=== PATIENT | female | born 1945 | race Caucasian/White ===

== ENCOUNTER → 2016-11-16 | Outpatient (CLI) | payer MEDICARE ==
[~2016-11-16] MED LIST: CARD120T4 PO; CHLO7.5 PO; COUM2TAB PO; CYMB60CA PO; HYDR-3113 PO; LEVO.1 PO; LISI-515 PO; METO25 PO; METO25TA3 PO; NEUR600T PO; OMEP20TA PO; PRIL20CA PO; PRIN20TA2 PO; SOMA350T PO
[2016-11-16 10:06] LABS: INTERNATIONAL NORMALIZED RATIO 2.4 RATIO; PROTHROMBIN TIME - PATIENT 27.6 SEC (9.8-11.6)
== END ==
LOC: PLAB 08:44
PROVIDERS: ATTEND Internal Medicine Interventional Cardiology
DX: I48.0 Paroxysmal atrial fibrillation (principal); Z79.01 Long term (current) use of anticoagulants
CPT/HCPCS: 36415; 85610

== ENCOUNTER → 2016-12-15 | Outpatient (CLI) | payer MEDICARE ==
[2016-12-15 09:28] LABS: INTERNATIONAL NORMALIZED RATIO 3.3 RATIO; PROTHROMBIN TIME - PATIENT 38.5 SEC (9.8-11.6)
== END ==
LOC: PLAB 07:55
PROVIDERS: ATTEND Internal Medicine Interventional Cardiology
DX: I48.0 Paroxysmal atrial fibrillation (principal); Z79.01 Long term (current) use of anticoagulants
CPT/HCPCS: 36415; 85610

== ENCOUNTER → 2017-01-18 | Outpatient (CLI) | payer MEDICARE ==
[2017-01-18 09:01] LABS: INTERNATIONAL NORMALIZED RATIO 2.3 RATIO; PROTHROMBIN TIME - PATIENT 26.6 SEC (9.8-11.6)
== END ==
LOC: PLAB 08:09
PROVIDERS: ATTEND Internal Medicine Interventional Cardiology
DX: I48.0 Paroxysmal atrial fibrillation (principal); Z79.01 Long term (current) use of anticoagulants
CPT/HCPCS: 36415; 85610

== ENCOUNTER → 2017-02-17 | Outpatient (CLI) | payer MEDICARE ==
[2017-02-17 15:28] LABS: INTERNATIONAL NORMALIZED RATIO 2.5 RATIO; PROTHROMBIN TIME - PATIENT 28.4 SEC (9.8-11.6)
== END ==
LOC: PLAB 13:19
PROVIDERS: ATTEND Internal Medicine Interventional Cardiology
DX: I48.0 Paroxysmal atrial fibrillation (principal); Z79.01 Long term (current) use of anticoagulants
CPT/HCPCS: 36415; 85610

== ENCOUNTER → 2017-03-16 | Outpatient (CLI) | payer MEDICARE ==
[2017-03-16 09:20] LABS: INTERNATIONAL NORMALIZED RATIO 2.2 RATIO; PROTHROMBIN TIME - PATIENT 25.1 SEC (9.8-11.6)
== END ==
LOC: PLAB 07:54
PROVIDERS: ATTEND Internal Medicine Interventional Cardiology
DX: I48.0 Paroxysmal atrial fibrillation (principal); Z79.01 Long term (current) use of anticoagulants
CPT/HCPCS: 36415; 85610

== ENCOUNTER → 2017-04-12 | Outpatient (CLI) | payer MEDICARE ==
[2017-04-12 10:15] LABS: AUTOMATED NEUTROPHIL # 5.5 TH/MM3 (1.8-7.7); BASOPHIL # 0.1 TH/MM3 (0-0.2); BASOPHIL % 0.8 % (0.0-2.0); EOSINOPHIL # 0.2 TH/MM3 (0-0.4); EOSINOPHIL % 2.2 % (0.0-4.0); HEMATOCRIT 33.2 % (35.0-46.0); HEMO FLAGS DIFF FINAL; LYMPH % 19.4 % (9.0-44.0); LYMPHOCYTE # 1.5 TH/MM3 (1.0-4.8); MEAN CELL VOLUME 84.7 FL (80.0-100.0); MEAN CORPUSCULAR HEMOGLOBIN 27.9 PG (27.0-34.0); MONO % 6.5 % (0.0-8.0); NEUT % 71.1 % (16.0-70.0); PLATELET COUNT 260 TH/MM3 (150-450); RED BLOOD COUNT 3.92 MIL/MM3 (4.00-5.30); RED CELL DISTRIBUTION WIDTH 14.7 % (11.6-17.2); WHITE BLOOD COUNT 7.7 TH/MM3 (4.0-11.0)
[2017-04-12 10:56] LABS: ALKALINE PHOSPHATASE 141 U/L (45-117); ALT (GPT) 32 U/L (10-53); ANION GAP 10 MEQ/L (5-15); AST (GOT) 20 U/L (15-37); BICARBONATE 23.4 MEQ/L (21.0-32.0); BLOOD UREA NITROGEN 13 MG/DL (7-18); CHLORIDE 109 MEQ/L (98-107); FREE T4 1.25 NG/DL (0.76-1.46); GLOMERULAR FILTRATION RATE 51 ML/MIN (>89); GLUCOSE,FASTING 106 MG/DL (74-99); HDL CHOLESTEROL 53.2 MG/DL (40.0-60.0); LDL CHOLESTEROL 115 MG/DL (0-99); POTASSIUM 4.1 MEQ/L (3.5-5.1); SODIUM (NA) 142 MEQ/L (136-145); TOTAL BILIRUBIN ADULT 0.2 MG/DL (0.2-1.0)
== END ==
LOC: PLAB 07:25
PROVIDERS: ATTEND Family Medicine
DX: E03.9 Hypothyroidism, unspecified (principal); I10 Essential (primary) hypertension
CPT/HCPCS: 36415; 80053; 80061; 84439; 84443; 85025

== ENCOUNTER → 2017-04-25 | Outpatient (CLI) | payer MEDICARE ==
--- NOTE | 2017-04-19 11:19 | MH ---
cc: CHONG CHAN DATE OF ADMISSION 04/25/2017 ADMISSION DIAGNOSIS Cloudy posterior capsule left eye. HISTORY OF PRESENT ILLNESS This 71-year-old white female is coming through [facility] for the purpose of a YAG laser posterior capsulotomy of the left eye. She is status post bilateral cataract surgery with intraocular lens implants in 2008 and has done well postoperatively, but now noticed decreasing visual acuity in the left eye interfering with her daily activities and was found to have a cloudy posterior capsule in the left eye greater than the right and therefore has elected to have a YAG laser posterior capsulotomy of the left eye at this time. PAST MEDICAL HISTORY The patient has a history of: 1. Hypertension 2. Migraines 3. Kidney disease 4. Arthritis 5. Breast cancer 6. Atrial fibrillation PAST SURGICAL HISTORY Includes: 1. Hysterectomy 2. Gallbladder surgery 3. Kidney stone removal 4. Tonsillectomy 5. Breast biopsy 6. Radioactive ablation 7. Bilateral carpal tunnel procedures 8. Left breast lumpectomy 9. Cryoablation of the heart 10. Blepharoplasty MEDICATIONS Daily medications include: 1. Lisinopril 2. Norvasc 3. Neurontin 4. Synthroid 5. Prilosec 6. Cymbalta 7. Coumadin 8. Cardizem ALLERGIES SHE IS ALLERGIC TO NSAID'S. SOCIAL HISTORY Noncontributory FAMILY HISTORY Positive for brother and aunt with cataracts and an aunt who lost her eye secondary to a cancer. REVIEW OF SYSTEMS Noncontributory OCULAR EXAM On ocular exam, the patient's best corrected visual acuity is 20/20 -2 in the right eye and 20/30 +2 in the left. Visual turner are full to confrontation testing. Extraocular muscle exam reveals full versions with orthophoria at distance and near. Pupils are 3 mm equal, round, and reactive to light without afferent defect. Anterior segment examination reveals dermatochalasis of the eyelid skin. A posterior chamber intraocular lenses is in place bilaterally with a cloudy posterior capsule greater in the left eye than the right. Intraocular pressure is 15 in the right eye and 16 in the left by applanation tonometry. Dilated fundus exam reveals sharp disks with cup-to-disk ratio of 0.4 bilaterally. The macula is clear bilaterally. Asteroid hyalosis is present in the right vitreous. IMPRESSION 1. Cloudy posterior capsule left eye greater than right. 2. Pseudophakia both eyes 3. Asteroid hyalosis right eye PLAN The plan is YAG laser posterior capsulotomy of the left eye through [facility]. MD JYOTI Burnett/COMPA /10:58 AM /11:13 AM
[~2017-04-25] MED LIST changes: +BALANCED SALT SOLN OPHT IRRIG 15 ML BTL ONE; +FLUOROMETHOLONE 0.25% OPHT SUSP 5 ML BTL ONE; +HYPROMELLOSE 0.3 % OPTH GEL 10 GM (0.34 FL OZ) TUBE ONE; -METO25 PO; +PHENYLEPHRINE HCL 2.5% OPTH SOLN 2 ML BTL ONE; -PRIL20CA PO; -PRIN20TA2 PO; +PROPARACAINE HCL 0.5% OPHT SOLN 15 ML BTL ONE; +TROPICAMIDE 1% OPHT SOLN 15 ML BTL ONE
--- NOTE | 2017-04-25 14:06 | MP ---
cc: CHONG JOHN DATE OF SURGERY: 04/25/2017 PREOPERATIVE DIAGNOSIS Cloudy posterior capsule, left eye. POSTOPERATIVE DIAGNOSIS Cloudy posterior capsule, left eye. OPERATION YAG laser posterior capsulotomy, left eye. SURGEON Chong John MD ANESTHESIA Topical. COMPLICATIONS None. INDICATIONS See history and physical previously dictated. PROCEDURE The patient arrived at [facility]. Blood pressure was 141/51, pulse 79, respirations 20. A drop of Alphagan P and Mydriacyl were instilled in the left eye. The patient was seated at the YAG laser. A drop of Alcaine was instilled in the left eye and a YAG laser posterior capsulotomy lens was placed on the anterior surface of the left cornea. YAG laser posterior capsulotomy was carried out utilizing 33 exposures of 1.6 millijoules. An adequate opening was seen following the procedure. A drop of Alphagan P was instilled topically. The patient was given a prescription for a topical steroid to be used four times per day and has an appointment for follow up on the first postoperative day in my office. The patient left the [facility] in satisfactory condition. Chong John MD RAILWAY EQUIPMENT OPERATOR/TLL /11:28 AM /1:59 PM
== END ==
LOC: PHSDC 10:01
PROVIDERS: ATTEND Ophthalmology
DX: H26.492 Other secondary cataract, left eye (principal); I10 Essential (primary) hypertension; I48.91 Unspecified atrial fibrillation; N28.9 Disorder of kidney and ureter, unspecified; G43.909 Migraine, unspecified, not intractable, without status migrainosus; Z85.3 Personal history of malignant neoplasm of breast; Z79.01 Long term (current) use of anticoagulants

== ENCOUNTER → 2017-04-27 | Outpatient (CLI) | payer MEDICARE ==
[~2017-04-27] MED LIST changes: -BALANCED SALT SOLN OPHT IRRIG 15 ML BTL ONE; -FLUOROMETHOLONE 0.25% OPHT SUSP 5 ML BTL ONE; -HYPROMELLOSE 0.3 % OPTH GEL 10 GM (0.34 FL OZ) TUBE ONE; -PHENYLEPHRINE HCL 2.5% OPTH SOLN 2 ML BTL ONE; -PROPARACAINE HCL 0.5% OPHT SOLN 15 ML BTL ONE; -TROPICAMIDE 1% OPHT SOLN 15 ML BTL ONE
[2017-04-27 15:00] LABS: INTERNATIONAL NORMALIZED RATIO 3.2 RATIO; PROTHROMBIN TIME - PATIENT 37.7 SEC (9.8-11.6)
== END ==
LOC: PLAB 13:51
PROVIDERS: ATTEND Internal Medicine Interventional Cardiology
DX: I48.0 Paroxysmal atrial fibrillation (principal); Z79.01 Long term (current) use of anticoagulants
CPT/HCPCS: 36415; 85610

== ENCOUNTER → 2017-05-11 | Outpatient (CLI) | payer MEDICARE ==
[2017-05-11 08:56] LABS: INTERNATIONAL NORMALIZED RATIO 3.5 RATIO; PROTHROMBIN TIME - PATIENT 40.6 SEC (9.8-11.6)
== END ==
LOC: PLAB 07:12
PROVIDERS: ATTEND Internal Medicine Interventional Cardiology
DX: I48.0 Paroxysmal atrial fibrillation (principal); Z79.01 Long term (current) use of anticoagulants
CPT/HCPCS: 36415; 85610

== ENCOUNTER → 2017-05-31 | Outpatient (CLI) | payer MEDICARE ==
[2017-05-31 10:52] LABS: INTERNATIONAL NORMALIZED RATIO 2.1 RATIO; PROTHROMBIN TIME - PATIENT 23.4 SEC (9.8-11.6)
[2017-05-31 13:11] LABS: RHEUMATOID FACTOR TRIGGER LESS THAN 10.0 IU/ML (0.0-14.9)
== END ==
LOC: PLAB 09:46
PROVIDERS: ATTEND Internal Medicine Rheumatology
DX: M06.4 Inflammatory polyarthropathy (principal); I48.0 Paroxysmal atrial fibrillation; Z79.01 Long term (current) use of anticoagulants
CPT/HCPCS: 36415; 85610; 85652; 86140; 86200; 86430

== ENCOUNTER → 2017-06-14 | Outpatient (CLI) | payer MEDICARE | LOC: PLAB 11:16 | PROVIDERS: ATTEND Internal Medicine Interventional Cardiology | DX: I48.0 Paroxysmal atrial fibrillation (principal); Z79.01 Long term (current) use of anticoagulants | CPT/HCPCS: 36415; 85610 ==

== ENCOUNTER → 2017-06-28 | Outpatient (CLI) | payer MEDICARE ==
[2017-06-28 10:12] LABS: BLOOD GAS BASE EXCESS -8.1 mmol/L (-2-2); BLOOD GAS CARBOXYHEMOGLOBIN 1.1 % (0-4); BLOOD GAS HCO3 16 mmol/L (22-26); BLOOD GAS METHEMOGLOBIN 1.2 % (0-2); BLOOD GAS O2 HGB SATURATION 96 % (90-100); BLOOD GAS OXYGEN CONTENT 14.8 Vol % (12.0-20.0); BLOOD GAS PCO2 30 mmHg (38-42); BLOOD GAS PO2 114 mmHg (61-120); BLOOD GAS TOTAL HGB 10.9 G/DL (12.0-16.0); TEMP CORR TO 98.6
[2017-06-28 10:14] LABS: CRITICAL VALUE YES; DRAW SITE RT RADIAL; FIO2 21 %; NUMBER OF ARTERIAL PUNCTURES 1; STAT NO; ULNAR PULSE PRESENT
[2017-06-28 13:09] LABS: HEMATOCRIT 34.6 % (35.0-46.0); MEAN CELL VOLUME 86.4 FL (80.0-100.0); MEAN CORPUSCULAR HEMOGLOBIN 28.1 PG (27.0-34.0); MEAN CORPUSCULAR HGB CONC 32.5 % (32.0-36.0); PLATELET COUNT 261 TH/MM3 (150-450); RED CELL DISTRIBUTION WIDTH 15.6 % (11.6-17.2); REVIEW FLAG FINAL; WHITE BLOOD COUNT 10.9 TH/MM3 (4.0-11.0)
--- NOTE | 2017-06-29 10:10 | RSPPFT ---
DATE OF PROCEDURE: 06/28/17 COMMENTS: VOLUMES DYNAMIC: FVC and FEV1 normal. STATIC: TLC, FRC and RV normal. FLOWS: FEV1% and FEF 25-75 normal. DIFFUSION: Normal. FLOW VOLUME LOOP: Normal configuration. IMPRESSION: Normal lung volumes and flows with no response to bronchodilator. There is a mild reduction in diffusion for which clinical correlation is required.
== END ==
LOC: HRSP 08:52
PROVIDERS: ATTEND Internal Medicine Interventional Cardiology
DX: R06.02 Shortness of breath (principal)
CPT/HCPCS: 36415; 36600; 82805; 83880; 85027; 94060; 94726; 94729

== ENCOUNTER → 2017-06-30 | Outpatient (CLI) | payer MEDICARE | LOC: PLAB 06-28 10:23 | PROVIDERS: ATTEND Internal Medicine Interventional Cardiology | DX: D64.9 Anemia, unspecified (principal) | CPT/HCPCS: 82272 ==

== ENCOUNTER → 2017-08-15 | Outpatient (CLI) | payer MEDICARE ==
[2017-08-15 09:53] LABS: INTERNATIONAL NORMALIZED RATIO 1.9 RATIO; PROTHROMBIN TIME - PATIENT 21.6 SEC (9.8-11.6)
== END ==
LOC: PLAB 06:57
PROVIDERS: ATTEND Internal Medicine Interventional Cardiology
DX: I48.0 Paroxysmal atrial fibrillation (principal); Z79.01 Long term (current) use of anticoagulants
CPT/HCPCS: 36415; 85610

== ENCOUNTER → 2017-09-01 | Outpatient (CLI) | payer MEDICARE ==
[2017-09-01 12:35] LABS: INTERNATIONAL NORMALIZED RATIO 2.4 RATIO; PROTHROMBIN TIME - PATIENT 28.1 SEC (9.8-11.6)
== END ==
LOC: PLAB 09:56
PROVIDERS: ATTEND Internal Medicine Interventional Cardiology
DX: I48.0 Paroxysmal atrial fibrillation (principal); Z79.01 Long term (current) use of anticoagulants
CPT/HCPCS: 36415; 85610

== ENCOUNTER → 2017-09-26 | Outpatient (CLI) | payer MEDICARE ==
[~2017-09-26] MED LIST changes: -OMEP20TA PO; +OMEP20TA93 PO
[2017-09-26 09:35] LABS: HEMATOCRIT 36.2 % (35.0-46.0); MEAN CELL VOLUME 88.8 FL (80.0-100.0); MEAN CORPUSCULAR HEMOGLOBIN 28.5 PG (27.0-34.0); MEAN CORPUSCULAR HGB CONC 32.1 % (32.0-36.0); PLATELET COUNT 238 TH/MM3 (150-450); RED BLOOD COUNT 4.08 MIL/MM3 (4.00-5.30); RED CELL DISTRIBUTION WIDTH 16.4 % (11.6-17.2); REVIEW FLAG FINAL; WHITE BLOOD COUNT 8.5 TH/MM3 (4.0-11.0)
== END ==
LOC: PLAB 07:32
DX: I48.0 Paroxysmal atrial fibrillation (principal); R00.0 Tachycardia, unspecified; R00.2 Palpitations; R94.31 Abnormal electrocardiogram [ECG] [EKG]; Z86.39 Personal history of other endocrine, nutritional and metabolic disease; Z79.01 Long term (current) use of anticoagulants
CPT/HCPCS: 36415; 84443; 85027

== ENCOUNTER → 2017-10-03 | Outpatient (CLI) | payer MEDICARE ==
[~2017-10-03] MED LIST changes: +BENZ1CAP51 PO; +PRED20 PO; +VENTAER INH; +VOLT1GEL16; +ZITHTAB PO
[2017-10-03 11:26] LABS: INTERNATIONAL NORMALIZED RATIO 2.2 RATIO; PROTHROMBIN TIME - PATIENT 25.4 SEC (9.8-11.6)
== END ==
LOC: PLAB 10:38
PROVIDERS: ATTEND Internal Medicine Interventional Cardiology
DX: I48.0 Paroxysmal atrial fibrillation (principal); Z79.01 Long term (current) use of anticoagulants
CPT/HCPCS: 36415; 85610

== ENCOUNTER 2017-10-10 10:32 | Emergency (ER) | payer MEDICARE ==
[~2017-10-10] VITALS: Ht 170.2 cm; Wt 97.0 kg
[~2017-10-10 10:32] MED LIST changes: -BENZ1CAP51 PO; -PRED20 PO; -VENTAER INH; -VOLT1GEL16; -ZITHTAB PO
[2017-10-10 10:37] VITALS: BP 149/66; PULSE 96; RESP 20; TEMP 98.2; O2SAT 98
[2017-10-10] MEDS ORDERED: VOLT1GEL16 TOPICAL (11:02)
[2017-10-10] MEDS ORDERED: DEXAMETHASONE SOD PHOS 4 MG/ML VIAL IM ONE (11:30)
--- NOTE | 2017-10-10 11:33 | PD ---
HPI Chief Complaint: Cold / Flu Symptoms Time Seen by Provider: 11:24 Travel History International Travel<30 days: No Contact w/Intl Traveler<30days: No Traveled to known affect area: No History of Present Illness HPI 72-year-old female presents to the emergency department for evaluation of cold symptoms that started on Tuesday, 3 days ago. Patient reports cough, congestion , wheezing. No fevers or chills. No chest pain. No abdominal pain. No nausea , vomiting, diarrhea. Patient has history of A. fib, hypertension, hyperlipidemia, arthritis. She also has history of breast cancer with last chemotherapy treatment 2 years ago. She is currently in remission. She denies any history of diabetes. She states she is taking Tessalon Perles at home without improvement of her cough. She states she has a procedure in [place] next week and would like to feel better to have her procedure done. She denies any history of pneumonia. She is a former smoker. She denies any history of asthma, COPD. Severity is moderate. No exacerbating or alleviating factors. PFSH Past Medical History Hx Anticoagulant Therapy: Yes (COUMADIN) Arthritis: Yes Asthma: No Blood Disorders: No Anxiety: No Depression: No Heart Rhythm Problems: Yes (HEART ABLATION) Cancer: Yes (BREAST, LUMPECTOMY) Cardiovascular Problems: Yes (a-fib) High Cholesterol: No Chemotherapy: Yes Chest Pain: No Congestive Heart Failure: No COPD: No Diabetes: No Diminished Hearing: No Endocrine: Yes GERD: Yes Glaucoma: No Genitourinary: No Hepatitis: No Hiatal Hernia: No Hypertension: Yes Immune Disorder: No Implanted Vascular Access Dvce: Yes Musculoskeletal: Yes Neurologic: No Psychiatric: No Reproductive: No Respiratory: No Migraines: Yes Radiation Therapy: No Sleep Apnea: Yes (2016) Thyroid Disease: Yes (HYPOTHYROID) Tetanus Vaccination: Unknown Influenza Vaccination: Yes Menopausal: Yes : 2 Para: 2 Past Surgical History Abdominal Surgery: Yes (MIGUELANGEL) Body Medical Devices: Left chest port. Cardiac Surgery: Yes (ABLATION HEART) Cholecystectomy: Yes Eye Surgery: Yes (CATARACT EXT BILATERAL) Gynecologic Surgery: Yes (HYSTERECTOMY) Hysterectomy: Yes (TOTAL) Pacemaker: No Other Surgery: Yes (LITHOTRIPSY, LEFT CHEST PORT, LEFT BREAST LUMPECTOMY/BIOPSY ) Social History Alcohol Use: Yes (SOCIAL) Tobacco Use: No (quit 1998) Substance Use: No Allergies-Medications (Allergen,Severity, Reaction): Coded Allergies: diclofenac (Unverified Allergy, Severe, 10/10/17) "EFFECTS KIDNEY FUNCTION" etodolac (Unverified Allergy, Severe, 10/10/17) "EFFECTS KIDNEY FUNCTION" flurbiprofen (Unverified Allergy, Severe, 10/10/17) "EFFECTS KIDNEY FUNCTION" ibuprofen (Unverified Allergy, Severe, 10/10/17) "EFFECTS KIDNEY FUNCTION" indomethacin (Unverified Allergy, Severe, 10/10/17) "EFFECTS KIDNEY FUNCTION" ketoprofen (Unverified Allergy, Severe, 10/10/17) "EFFECTS KIDNEY FUNCTION" ketorolac (Unverified Allergy, Severe, 10/10/17) "EFFECTS KIDNEY FUNCTION" naproxen (Unverified Allergy, Severe, 10/10/17) "EFFECTS KIDNEY FUNCTION" oxaprozin (Unverified Allergy, Severe, 10/10/17) "EFFECTS KIDNEY FUNCTION" Reported Meds & Prescriptions Reported Meds & Active Scripts Active Reported Voltaren (Diclofenac Sodium) 1 % Gel..gram. Cymbalta DR (Duloxetine HCl) 60 Mg Capdr 60 Mg PO DAILY Cardizem (Diltiazem HCl) 120 Mg Tab 180 Mg PO DAILY Tranxene T (Clorazepate Dipotassium) 7.5 Mg Tab 3.75 Mg PO BID PRN Vicodin Es (Hydrocodone-Acetaminophen) 7.5-300 Tab 1 Tab PO Q4H PRN Neurontin (Gabapentin) 600 Mg Tab 600 Mg PO DAILY Soma (Carisoprodol) 350 Mg Tab 350 Mg PO Q6H PRN Metoprolol Tartrate 25 Mg Tab 25 Mg PO DAILY PRN Lisinopril 20 Mg Tab 20 Mg PO DAILY Omeprazole 20 Mg Tab 20 Mg PO DAILY Synthroid (Levothyroxine Sodium) 100 Mcg Tab 100 Mcg PO DAILY Coumadin (Warfarin) 2 Mg Tab 2 Mg PO DAILY Review of Systems Except as stated in HPI: all other systems reviewed are Neg Physical Exam Narrative GENERAL: Well-nourished, well-developed female patient, afebrile. SKIN: Focused skin assessment warm/dry. HEAD: Normocephalic. Atraumatic. ENT: Mucosa pink and moist. No erythema or exudates. No uvular edema. No uvular , palatal, or tonsillar deviation. Airway patent. Nasal turbinates appear normal without nasal blood, purulent drainage or septal hematoma. Bilateral tympanic membranes are clear without erythema or perforation. EYES: No scleral icterus. No injection or drainage. NECK: Supple, trachea midline. No JVD or lymphadenopathy. CARDIOVASCULAR: Regular rate and rhythm without murmurs, gallops, or rubs. RESPIRATORY: Breath sounds equal bilaterally. No accessory muscle use. Lungs sounds with expiratory wheezes noted throughout. GASTROINTESTINAL: Abdomen soft, non-tender, nondistended. MUSCULOSKELETAL: No cyanosis, or edema. BACK: Nontender without obvious deformity. No CVA tenderness. Data Data Last Documented VS Vital Signs Date Time Temp Pulse Resp B/P (MAP) Pulse Ox O2 Delivery O2 Flow Rate FiO2 10/10/17 13:28 95 17 149/60 (89) 98 Room Air 10/10/17 10:37 98.2 Orders Orders Chest, Single Ap (10/10/17 11:29) Albuterol-Ipratropium Neb (Duoneb Neb) (10/10/17 11:30) Dexamethasone Inj (Decadron Inj) (10/10/17 11:30) Complete Blood Count With Diff (10/10/17 13:09) Basic Metabolic Panel (Bmp) (10/10/17 13:09) B-Type Natriuretic Peptide (10/10/17 13:09) Act Partial Throm Time (Ptt) (10/10/17 13:09) Prothrombin Time / Inr (Pt) (10/10/17 13:09) Iv Access Insert/Monitor (10/10/17 13:09) Ecg Monitoring (10/10/17 13:09) Oximetry (10/10/17 13:09) Oxygen Administration (10/10/17 13:09) Sodium Chloride 0.9% Flush (Ns Flush) (10/10/17 13:15) Labs Laboratory Tests Test 10/10/17 13:25 White Blood Count 11.1 TH/MM3 Red Blood Count 3.94 MIL/MM3 Hemoglobin 11.1 GM/DL Hematocrit 34.5 % Mean Corpuscular Volume 87.6 FL Mean Corpuscular Hemoglobin 28.2 PG Mean Corpuscular Hemoglobin Concent 32.2 % Red Cell Distribution Width 18.0 % Platelet Count 201 TH/MM3 Mean Platelet Volume 8.2 FL Neutrophils (%) (Auto) 90.9 % Lymphocytes (%) (Auto) 6.2 % Monocytes (%) (Auto) 2.4 % Eosinophils (%) (Auto) 0.3 % Basophils (%) (Auto) 0.2 % Neutrophils # (Auto) 10.1 TH/MM3 Lymphocytes # (Auto) 0.7 TH/MM3 Monocytes # (Auto) 0.3 TH/MM3 Eosinophils # (Auto) 0.0 TH/MM3 Basophils # (Auto) 0.0 TH/MM3 CBC Comment DIFF FINAL Differential Comment Prothrombin Time 25.7 SEC Prothromb Time International Ratio 2.2 RATIO Activated Partial Thromboplast Time 36.6 SEC Blood Urea Nitrogen 20 MG/DL Creatinine 1.30 MG/DL Random Glucose 137 MG/DL Calcium Level 8.9 MG/DL Sodium Level 140 MEQ/L Potassium Level 4.6 MEQ/L Chloride Level 109 MEQ/L Carbon Dioxide Level 21.3 MEQ/L Anion Gap 10 MEQ/L Estimat Glomerular Filtration Rate 40 ML/MIN B-Type Natriuretic Peptide 77 PG/ML MDM Medical Decision Making Medical Screen Exam Complete: Yes Emergency Medical Condition: Yes Medical Record Reviewed: Yes Interpretation(s) chest x-ray -CONCLUSION: Mild prominence cardiac silhouette without failure. Differential Diagnosis Pneumonia versus bronchitis versus URI Narrative Course 72-year-old female presents to the emergency department for evaluation of cold symptoms with cough, congestion, wheezing for 3 days. Patient appears well on exam. Expiratory wheezes are noted. Patient is given DuoNeb 3, dexamethasone 8 mg IM. Chest x-ray is ordered and pending. CBC, BMP, BNP, PTT, PT/INR are pending. Chest x-ray shows mild prominence cardiac silhouette without failure. No evidence of pneumonia. CBC shows slight leukocytosis of 11.1. BMP shows BUN 20 , creatinine 1.30 which is patient's baseline. Glucose is 137. BNP is 77. PTT is 25.7, INR 2.2, PTT 36.6. Patient will be discharged with a prescription for albuterol inhaler, azithromycin, prednisone, benzonatate capsules. She is encouraged to follow-up with her primary care physician. She is return here for any acute worsening of symptoms. She verbalizes agreement and understanding. The patient was discharged in stable condition with instructions, including return instructions and follow up instructions. Diagnosis Primary Impression: Upper respiratory infection Qualified Codes: J06.9 - Acute upper respiratory infection, unspecified Referrals: Primary Care Physician 2 days Patient Instructions: General Instructions, Upper Respiratory Infection (ED) Additional Instructions: Take antibiotic as directed until gone. Use albuterol inhaler as directed as needed for shortness of breath/wheezing. Take prednisone as directed. Start this tomorrow. Take benzonatate capsules as directed as needed for cough. Follow-up with your primary care physician. Return to the emergency department for any acute worsening of symptoms. Med/Other Pt SpecificInfo: Prescription(s) given Scripts Azithromycin (Zithromax Z-Kane) 250 Mg Dspk 250 MG PO DIRECTED for Infection, #1 DSPK 0 Refills 500 MG (2 tabs) day 1, then 1 tab days 2-5. Prov: Tona Vivas 10/10/17 Benzonatate (Benzonatate) 200 Mg Cap 200 MG PO TID Y for COUGH, #21 CAP 0 Refills Prov: Tona Vivas 10/10/17 Prednisone (Prednisone) 20 Mg Tab 40 MG PO DAILY, #10 TAB 0 Refills Take 40 mg (2 tablets) daily for 5 days Prov: Tona Vivas 10/10/17 Albuterol 18 GM Inh (Ventolin Hfa 18 GM Inh) 90 Mcg/Act Aer 1 PUFF INH Q4H Y for SHORTNESS OF BREATH, #1 INHALER 0 Refills Prov: Tona Vivas 10/10/17 Disposition: 01 DISCHARGE HOME Condition: Stable Tona Vivas Oct 10, 2017 11:33
[2017-10-10] MEDS: RESP: ALBUTEROL 2.5 MG/IPRATROPIUM 0.5 MG NEB (SCH) INH (11:38)
--- NOTE | 2017-10-10 13:03 | RADRPT ---
EXAM DATE/TIME: 10/10/2017 12:17 [place] COMPARISON: CHEST SINGLE AP, August 11, 2016, 0:11. INDICATIONS : Cough for 4 days. MEDICAL HISTORY : Hypertension. Breast cancer. Afib. SURGICAL HISTORY : Cholecystectomy. Ablation. Left breast lumpectomy. ENCOUNTER: Initial ACUITY: 4 - 6 days PAIN SCORE: 0/10 LOCATION: Bilateral chest FINDINGS: A single view of the chest demonstrates the lungs to be symmetrically aerated without evidence of mas s, infiltrate or effusion. Mild prominence the cardiac silhouette. Osseous structures are intact. CONCLUSION: Mild prominence cardiac silhouette without failure. Andre Zelaya MD FACR on October 10, 2017 at 13:00 Board Certified Radiologist. This report was verified electronically.
[2017-10-10] MEDS ORDERED: SODIUM CHLORIDE 0.9% FLUSH 10 ML FLUSH IVF PRN (13:15)
[2017-10-10 13:28] VITALS: BP 149/60; PULSE 95; RESP 17; O2SAT 98
[2017-10-10 13:52] LABS: AUTOMATED NEUTROPHIL # 10.1 TH/MM3 (1.8-7.7); BASOPHIL % 0.2 % (0.0-2.0); EOSINOPHIL % 0.3 % (0.0-4.0); HEMATOCRIT 34.5 % (35.0-46.0); HEMO FLAGS DIFF FINAL; LYMPH % 6.2 % (9.0-44.0); LYMPHOCYTE # 0.7 TH/MM3 (1.0-4.8); MEAN CELL VOLUME 87.6 FL (80.0-100.0); MEAN CORPUSCULAR HEMOGLOBIN 28.2 PG (27.0-34.0); MEAN CORPUSCULAR HGB CONC 32.2 % (32.0-36.0); MONO % 2.4 % (0.0-8.0); NEUT % 90.9 % (16.0-70.0); PLATELET COUNT 201 TH/MM3 (150-450); RED BLOOD COUNT 3.94 MIL/MM3 (4.00-5.30); WHITE BLOOD COUNT 11.1 TH/MM3 (4.0-11.0)
[2017-10-10 14:04] LABS: BICARBONATE 21.3 MEQ/L (21.0-32.0)
[2017-10-10 14:05] LABS: POTASSIUM 4.6 MEQ/L (3.5-5.1)
[2017-10-10 14:06] LABS: APTT (PATIENT) 36.6 SEC (24.3-30.1); INTERNATIONAL NORMALIZED RATIO 2.2 RATIO; PROTHROMBIN TIME - PATIENT 25.7 SEC (9.8-11.6)
[2017-10-10] MEDS ORDERED: VENTAER INH (14:27)
[2017-10-10] MEDS ORDERED: ZITHTAB PO (14:27)
[2017-10-10] MEDS ORDERED: BENZ1CAP51 PO (14:27)
[2017-10-10] MEDS ORDERED: PRED20 PO (14:27)
[2017-10-11] MEDS ORDERED: DILT180C7 PO (13:49)
== END 2017-10-10 14:43 | disposition home or self-care (01) ==
LOC: PHEFT 10:32
DX: J06.9 Acute upper respiratory infection, unspecified (principal); M19.90 Unspecified osteoarthritis, unspecified site; E78.5 Hyperlipidemia, unspecified; I10 Essential (primary) hypertension; I48.91 Unspecified atrial fibrillation; Z79.01 Long term (current) use of anticoagulants; R06.2 Wheezing
CPT/HCPCS: 71010; 80048; 83880; 85025; 85610; 85730; 94640; 94664; 96372; 99284; J1100

== ENCOUNTER 2017-10-11 13:17 | Inpatient (IN) | payer MEDICARE ==
[2017-10-11] VITALS (10 sets, daily range): BP systolic 118–151; BP diastolic 59–77; PULSE 81–91; RESP 18–22; TEMP 97.9–98.5; O2SAT 93–98
[~2017-10-11] VITALS: Ht 170.2 cm; Wt 102.2 kg
[~2017-10-11 13:17] MED LIST changes: +BENZ1CAP51 PO; +PRED20 PO; +VENTAER INH; +VOLT1GEL16 TOPICAL; +ZITHTAB PO
--- NOTE | 2017-10-11 13:41 | PD ---
HPI Chief Complaint: Respiratory Symptoms Time Seen by Provider: 13:32 Travel History International Travel<30 days: No Contact w/Intl Traveler<30days: No Traveled to known affect area: No History of Present Illness HPI 72 YO F with PMH of A fib, WPW, s/p ablation, HTN, HLD, breast CA in remission 2 years presents to the ED for evaluation of worsening shortness of breath. She states that she began to experience cold symptoms about 4 days ago with cough, congestion and wheeze. She denies fever, chills, chest pain, nausea, vomiting, diarrhea, abdominal pain. The patient was evaluated at [facility] yesterday , diagnosed with URI and provided prescription for Azithromycin, steroids, albuterol inhaler and benzonatate. She endorses compliance with her medications but states that she still feeling unwell. PFSH Past Medical History Hx Anticoagulant Therapy: Yes (COUMADIN) Arthritis: Yes Asthma: No Blood Disorders: No Anxiety: No Depression: No Heart Rhythm Problems: Yes (HEART ABLATION) Cancer: Yes (BREAST, LUMPECTOMY) Cardiovascular Problems: Yes (AFIB WPW) High Cholesterol: No Chemotherapy: Yes Chest Pain: No Congestive Heart Failure: No COPD: No Diabetes: No Diminished Hearing: No Endocrine: Yes GERD: Yes Glaucoma: No Genitourinary: No Hepatitis: No Hiatal Hernia: No Hypertension: Yes Immune Disorder: No Implanted Vascular Access Dvce: Yes Musculoskeletal: Yes Neurologic: No Psychiatric: No Reproductive: No Respiratory: No Migraines: Yes Radiation Therapy: No Sleep Apnea: Yes (2015) Thyroid Disease: Yes (HYPOTHYROID) Menopausal: Yes : 2 Para: 2 Past Surgical History Abdominal Surgery: Yes (MIGUELANGEL) Body Medical Devices: Left chest port. Cardiac Surgery: Yes (ABLATION HEART) Cholecystectomy: Yes Eye Surgery: Yes (CATARACT EXT BILATERAL) Gynecologic Surgery: Yes (HYSTERECTOMY) Hysterectomy: Yes (TOTAL) Pacemaker: No Other Surgery: Yes (LITHOTRIPSY, LEFT CHEST PORT, LEFT BREAST LUMPECTOMY/BIOPSY ) Social History Alcohol Use: Yes (SOCIAL) Tobacco Use: No (quit 1998) Substance Use: No Allergies-Medications (Allergen,Severity, Reaction): Coded Allergies: diclofenac (Unverified Allergy, Severe, 10/11/17) "EFFECTS KIDNEY FUNCTION" etodolac (Unverified Allergy, Severe, 10/11/17) "EFFECTS KIDNEY FUNCTION" flurbiprofen (Unverified Allergy, Severe, 10/11/17) "EFFECTS KIDNEY FUNCTION" ibuprofen (Unverified Allergy, Severe, 10/11/17) "EFFECTS KIDNEY FUNCTION" indomethacin (Unverified Allergy, Severe, 10/11/17) "EFFECTS KIDNEY FUNCTION" ketoprofen (Unverified Allergy, Severe, 10/11/17) "EFFECTS KIDNEY FUNCTION" ketorolac (Unverified Allergy, Severe, 10/11/17) "EFFECTS KIDNEY FUNCTION" naproxen (Unverified Allergy, Severe, 10/11/17) "EFFECTS KIDNEY FUNCTION" oxaprozin (Unverified Allergy, Severe, 10/11/17) "EFFECTS KIDNEY FUNCTION" Reported Meds & Prescriptions Reported Meds & Active Scripts Active Zithromax Z-Kane (Azithromycin) 250 Mg Dspk 250 Mg PO DIRECTED 500 MG (2 tabs) day 1, then 1 tab days 2-5. Benzonatate 200 Mg Cap 200 Mg PO TID PRN Prednisone 20 Mg Tab 40 Mg PO DAILY Take 40 mg (2 tablets) daily for 5 days Ventolin Hfa 18 GM Inh (Albuterol Sulfate) 90 Mcg/Act Aer 1 Puff INH Q4H PRN Reported Diltiazem ER 24 HR (Diltiazem HCl) 180 Mg Caper 180 Mg PO DAILY Voltaren (Diclofenac Sodium) 1 % Gel..gram. 1 Applic TOPICAL PRN Cymbalta DR (Duloxetine HCl) 60 Mg Capdr 60 Mg PO DAILY Tranxene T (Clorazepate Dipotassium) 7.5 Mg Tab 3.75 Mg PO BID PRN Vicodin Es (Hydrocodone-Acetaminophen) 7.5-300 Tab 1 Tab PO Q4H PRN Neurontin (Gabapentin) 600 Mg Tab 600 Mg PO DAILY Soma (Carisoprodol) 350 Mg Tab 350 Mg PO Q6H PRN Metoprolol Tartrate 25 Mg Tab 25 Mg PO DAILY PRN Lisinopril 20 Mg Tab 20 Mg PO DAILY Omeprazole 20 Mg Tab 20 Mg PO DAILY Synthroid (Levothyroxine Sodium) 100 Mcg Tab 100 Mcg PO DAILY Coumadin (Warfarin) 2 Mg Tab 2 Mg PO DAILY Review of Systems Except as stated in HPI: all other systems reviewed are Neg Physical Exam Narrative GENERAL: Well-nourished, well-developed pleasant white female in no acute distress. SKIN: Focused skin assessment warm/dry. HEAD: Normocephalic. EYES: No scleral icterus. No injection or drainage. NECK: Supple, trachea midline. No JVD or lymphadenopathy. CARDIOVASCULAR: Regular rate and rhythm without murmurs, gallops, or rubs. RESPIRATORY: Breath sounds equal bilaterally. Mild end expiratory wheezing in the upper lobes bilaterally. No accessory muscle use. GASTROINTESTINAL: Abdomen soft, non-tender, nondistended. MUSCULOSKELETAL: No cyanosis, or edema. BACK: Nontender without obvious deformity. No CVA tenderness. Data Data Last Documented VS Vital Signs Date Time Temp Pulse Resp B/P (MAP) Pulse Ox O2 Delivery O2 Flow Rate FiO2 10/11/17 15:15 82 19 146/77 (100) 98 Nasal Cannula 2.00 10/11/17 13:21 98.5 Orders Orders Albuterol-Ipratropium Neb (Duoneb Neb) (10/11/17 13:43) Albuterol-Ipratropium Neb (Duoneb Neb) (10/11/17 13:44) Ct Pulmonary Angiogram (10/11/17 14:15) Iv Access Insert/Monitor (10/11/17 14:15) Iodixanol 320 Inj (Rad Ct) (Visipaque 32 (10/11/17 15:11) Blood Afb Culture (Anahy) (10/11/17 16:04) Blood Culture (10/11/17 16:04) Legionella Urinary Antigen (10/11/17 16:04) Azithromycin Inj (Zithromax Inj) (10/11/17 16:15) Cefepime Inj (Maxipime Inj) (10/11/17 16:15) Sputum Afb Culture And Stain (10/11/17 16:04) Sputum Culture And Gram Stain (10/11/17 16:04) Consult Infectious Disease (10/11/17 ) Admit Order (Ed Use Only) (10/11/17 16:18) MDM Medical Decision Making Medical Screen Exam Complete: Yes Emergency Medical Condition: Yes Differential Diagnosis Bronchitis versus pneumonia versus PE versus other Narrative Course 72 YO F with PMH of A fib, WPW, s/p ablation, HTN, HLD, breast CA in remission 2 years presents to the ED for evaluation of worsening shortness of breath. She states that she began to experience cold symptoms about 4 days ago with cough, congestion and wheeze. She denies fever, chills, chest pain, nausea, vomiting, diarrhea, abdominal pain. The patient was evaluated at [facility] yesterday , diagnosed with URI and provided prescription for Azithromycin, steroids, albuterol inhaler and benzonatate. Vitals reviewed. O2 saturations 92% on room air, improved to 95-97% on 2 L by nasal cannula. The patient was walked around the emergency room and O2 sats dipped into the high 80s afterwards. CTA1. No pulmonary embolus. 2. However, there is a reticulonodular pattern in both lower lobes, left greater than right with areas characteristic of a "tree in bud" pattern suggesting atypical infection such as ANAHY. 3. Nodular like area is predominantly an interstitial process in a deshaun- fissural distribution posteriorly in the right upper lobe and probably postinflammatory. I would recommend a followup noncontrasted CT scan of the chest in 3 months to ensure stability/resolution. I discussed the results of the CTA with the patient and her . The reports to me that he was just recently diagnosed with leprosy and is being treated for Mycobacterium. I spoke with Dr. Merida, infectious disease, who recommends azithromycin and cefepime. Blood cultures, urine Legionella antigen, sputum cultures Gram stain and AFB. Antibiotics were initiated. I spoke with Dr. Rossi who agrees to accept the patient to the medicine service. Please see medicine notes for disposition. Dian Maradiaga Oct 11, 2017 13:41
[2017-10-11] MEDS ORDERED: RESP: ALBUTEROL 2.5 MG/IPRATROPIUM 0.5 MG NEB (PRN) ONE ×2 (13:43→13:44)
[2017-10-11] MEDS ORDERED: DILT180C7 PO (13:49)
[2017-10-11] MEDS ORDERED: IODIXANOL 320 MG/ML 10 ML VIAL (for Rad CT) IVCONTRAST ONE (15:11)
--- NOTE | 2017-10-11 15:32 | RADRPT ---
EXAM DATE/TIME: 10/11/2017 15:00 [facility] COMPARISON: No previous studies available for comparison. INDICATIONS : Cough, dyspnea for 5 days IV CONTRAST: 50 cc Visipaque (iodixanol) IV RADIATION DOSE: 16.41 CTDIvol (mGy) MEDICAL HISTORY : Cardiovascular disease. Hypertension. Carcinoma, breast. SURGICAL HISTORY : Cholecystectomy. Hysterectomy. ENCOUNTER: Initial ACUITY: 4 - 6 days PAIN SCALE: 6/10 LOCATION: chest TECHNIQUE: Volumetric scanning of the chest was performed using a pulmonary embolism protocol MIP images were re constructed. Using automated exposure control and adjustment of the mA and/or kV according to patien t size, radiation dose was kept as low as reasonably achievable to obtain optimal diagnostic quality images. DICOM format image data is available electronically for review and comparison. Follow-up recommendations for detected pulmonary nodules are based at a minimum on nodule size and pa tient risk factors according to Fleischner Society Guidelines. FINDINGS: PULMONARY ARTERIES: No filling defects are seen in the pulmonary arteries through the segmental level. LUNGS: Reticular nodular pattern is present in both lung bases, left greater than right. Some of the nodules coalesce into a focal airspace process medially in the inferior left perihilar distribution. A 1.1 c m predominantly interstitial process has a rounded configuration in a deshaun-fissural distribution of t he right upper lobe. PLEURAE: There is no pleural thickening or pleural effusion. MEDIASTINUM: There is good visualization of the great vessels of the middle mediastinum. No evidence of mediastin al or hilar adenopathy/mass. MUSCULOSKELETAL: Within normal limits for patient age. MISCELLANEOUS: The visualized upper abdominal organs demonstrate no acute abnormality. Patient is status post cholec ystectomy. CONCLUSION: 1. No pulmonary embolus. 2. However, there is a reticulonodular pattern in both lower lobes, left greater than right with area s characteristic of a "tree in bud" pattern suggesting atypical infection such as SHALOM. 3. Nodular like area is predominantly an interstitial process in a deshaun-fissural distribution posteri jeremias in the right upper lobe and probably postinflammatory. I would recommend a followup noncontraste d CT scan of the chest in 3 months to ensure stability/resolution, Jacinto Pack MD on October 11, 2017 at 15:21 Board Certified Radiologist. This report was verified electronically.
[2017-10-11] MEDS ORDERED: AZITHROMYCIN INJ 500 MG in SODIUM CHLOR 0.9% 250 ML INJ 250 ML IV ONE (16:15)
[2017-10-11] MEDS ORDERED: CEFEPIME INJ 1,000 MG in SODIUM CHLORIDE 0.9% INJ 100 ML IV ONE (16:15)
[2017-10-11] MEDS ORDERED: NALOXONE HCL 0.4 MG/ML AMP IV PUSH PRN (16:30)
--- NOTE | 2017-10-11 16:47 | HHI.HP ---
HPI Service [facility] Primary Care Physician Bryce Conte M.D. Admission Diagnosis atypical pneumonia Diagnoses: Travel History International Travel<30 Days: No Contact w/Intl Traveler <30 Da: No Traveled to Known Affected Are: No History of Present Illness History from patient, at the bedside, ER communication, review of medical records. Patient reported that she was coughing constantly and started getting short of breath starting . She reports the cough is productive of yellowish sputum. Denies fever at home. That does have muscle aches throughout. She presented to [facility] emergency room yesterday October 10, 2017. She was treated with steroids, azithromycin for pneumonia. Patient states that her dyspnea and cough is not improving at all after taking all the above treatment. Has been at the bedside stated patient was not able to walk from the bed to the bathroom without significant dyspnea. Therefore they returned to the hospital. Patient has history of A. fib for which she had ablation in 1995 and every of 2016. However denies any episodes of significant tachycardia. Denies any prior history of CHF. Reports she has had echocardiograms yearly. Follows up with Dr. Pickett Also denies any prior history of asthma/COPD/emphysema. She has had PFT studies in June 2017 which was within it. She did travel to [place] or during with a 5 [address] ride during which she takes breaks. She is on Coumadin at home with INR of 2.2. She also traveled to [place] by plane a week prior. History of anemia with positive guaiac done as an outpatient. Therefore she was referred for colonoscopy by Dr. Wheeler which was negative. She then had capsule endoscopy which shows small intestinal polyp. She has appointment for removal of this polyp next Tuesday at [facility]. She cancelled for it due to this acute dyspnea. Of note is that patient's was recently diagnosed with leprosy through multiple skin biopsies. He follows up at a clinic in [place]. He does have exposure to [place] from which he got this. He was treated with clarithromycin and rifampin. Stated the treatment is for a total of 2 years and he has been on meds for about 6 months now. Review of Systems Except as stated in HPI: all other systems reviewed are Neg Past Family Social History Past Medical History htn afib- s/p ablation in 1995, dec 2016 ckd- GFR 40 at baseline - due to NSAID induced nephropathy hypothyroidism breast cancer- left side- s/p chemo and s/p radiation, s/p lumpectomy- finished treatment in 2013 Past Surgical History ablations for afib cholecystectomy hysterectomy knee arthroscopies carpal tunnel sx Reported Medications Reports pharmacy manager did go through the names and doses of her medications. Allergies: Coded Allergies: diclofenac (Unverified Allergy, Severe, 10/11/17) "EFFECTS KIDNEY FUNCTION" etodolac (Unverified Allergy, Severe, 10/11/17) "EFFECTS KIDNEY FUNCTION" flurbiprofen (Unverified Allergy, Severe, 10/11/17) "EFFECTS KIDNEY FUNCTION" ibuprofen (Unverified Allergy, Severe, 10/11/17) "EFFECTS KIDNEY FUNCTION" indomethacin (Unverified Allergy, Severe, 10/11/17) "EFFECTS KIDNEY FUNCTION" ketoprofen (Unverified Allergy, Severe, 10/11/17) "EFFECTS KIDNEY FUNCTION" ketorolac (Unverified Allergy, Severe, 10/11/17) "EFFECTS KIDNEY FUNCTION" naproxen (Unverified Allergy, Severe, 10/11/17) "EFFECTS KIDNEY FUNCTION" oxaprozin (Unverified Allergy, Severe, 10/11/17) "EFFECTS KIDNEY FUNCTION" Family History sister at lung cancer age 40s , mother with lung cancer in her 70s 3 uncles with lung cancer all on mother side all smokers father- heart problems Social History used to smoke- quit 1998 no etoh abuse, no drugs still driving Physical Exam Vital Signs Vital Signs Date Time Temp Pulse Resp B/P (MAP) Pulse Ox O2 Delivery O2 Flow Rate FiO2 10/11/17 13:50 95 Nasal Cannula 2.00 10/11/17 13:39 84 21 138/75 (96) 97 Nasal Cannula 2.00 10/11/17 13:35 92 Room Air 10/11/17 13:27 118/64 (82) 10/11/17 13:21 98.5 91 20 93 Room Air Physical Exam GENERAL: This is a well-nourished, well-developed patient, in mild distress from cough and wheezing SKIN: No rashes, ecchymoses or lesions. Cool and dry. HEAD: Atraumatic. Normocephalic. No temporal or scalp tenderness. EYES: No scleral icterus. No injection or drainage. ENT: Nose without bleeding, purulent drainage or septal hematoma.Airway patent. NECK: Trachea midline. No JVD CARDIOVASCULAR: Regular rate and rhythm without murmurs, gallops, or rubs. RESPIRATORY: bilateral inspiratory and expiratory wheezing GASTROINTESTINAL: Abdomen soft, non-tender, nondistended. No guarding. MUSCULOSKELETAL: Extremities without clubbing, cyanosis. No calf tenderness. Bilateral mild pitting edema at the ankles. NEUROLOGICAL: Awake and alert. Motor and sensory grossly within normal limits. Normal speech. Laboratory Labs from October 10, 2017 at [facility] ER reviewed. Imaging CT pulmonary angiogram personally reviewed. No evidence of pulmonary embolism. Radiologist reading noted with possible atypical pneumonia. Caprini VTE Risk Assessment Caprini VTE Risk Assessment: Mod/High Risk (score >= 2) Caprini Risk Assessment Model Point Value = 1 Point Value = 2 Point Value = 3 Point Value = 5 Age 41-60 Minor surgery BMI > 25 kg/m2 Swollen legs Varicose veins or History of unexplained or recurrent spontaneous Oral contraceptives or hormone replacement Sepsis (< 1 month) Serious lung disease, including pneumonia (< 1 month) Abnormal pulmonary function Acute myocardial infarction Congestive heart failure (< 1 month) History of inflammatory bowel disease Medical patient at bed rest Age 61-74 Arthroscopic surgery Major open surgery (> 45 min) Laparoscopic surgery (> 45 min) Malignancy Confined to bed (> 72 hours) Immobilizing plaster cast Central venous access Age >= 75 History of VTE Family history of VTE Factor V Leiden Prothrombin [id number] Lupus anticoagulant Anticardiolipin antibodies Elevated serum homocysteine Heparin-induced thrombocytopenia Other congenital or acquired thrombophilia Stroke (< 1 month) Elective arthroplasty Hip, pelvis, or leg fracture Acute spinal cord injury (< 1 month) Prophylaxis Regimen Total Risk Factor Score Risk Level Prophylaxis Regimen 0-1 Low Early ambulation 2 Moderate Order ONE of the following: *Sequential Compression Device (SCD) *Heparin 5000 units SQ BID 3-4 Higher Order ONE of the following medications: *Heparin 5000 units SQ TID *Enoxaparin/Lovenox 40 mg SQ daily (WT < 150 kg, CrCl > 30 mL/min) *Enoxaparin/Lovenox 30 mg SQ daily (WT < 150 kg, CrCl > 10-29 mL/min) *Enoxaparin/Lovenox 30 mg SQ BID (WT < 150 kg, CrCl > 30 mL/min) AND/OR *Sequential Compression Device (SCD) 5 or more Highest Order ONE of the following medications: *Heparin 5000 units SQ TID (Preferred with Epidurals) *Enoxaparin/Lovenox 40 mg SQ daily (WT < 150 kg, CrCl > 30 mL/min) *Enoxaparin/Lovenox 30 mg SQ daily (WT < 150 kg, CrCl > 10-29 mL/min) *Enoxaparin/Lovenox 30 mg SQ BID (WT < 150 kg, CrCl > 30 mL/min) AND *Sequential Compression Device (SCD) Assessment and Plan Assessment and Plan Impression: Pneumonia. Failed outpatient. Possibly atypical. With history of recent leprosy treatment for her . 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 Planned for removal at [facility] next week. Plan: Patient's case was discussed with infectious disease specialist by ER provider. We'll follow recommendations by infectious disease specialist. Azithromycin/cefepime. Cultures including sputum cultures/AFB cultures/blood cultures sent in ER. Will follow-up results. As to her comorbidities, resume her home medications. Symptomatic treatment of cough with Robitussin/codeine. Nebulizers when necessary. Will hold off on prednisone at this point. Only if patient is severely tight/ wheezing, we'll consider steroid therapy. DVT prophylaxis on Coumadin. GI prophylaxis on pantoprazole. Discussed Condition With Patient, her at the bedside, ER provider. Physician Certification 2 Midnight Certification Type: Admission for Inpatient Services Order for Inpatient Services The services are ordered in accordance with Medicare regulations or non- Medicare payer requirements, as applicable. In the case of services not specified as inpatient-only, they are appropriately provided as inpatient services in accordance with the 2-midnight benchmark. Estimated LOS (days): 2 days is the estimated time the patient will need to remain in the hospital, assuming treatment plan goals are met and no additional complications. Post-Hospital Plan: Home Yanci Rossi MD Oct 11, 2017 16:47
[2017-10-11] MEDS ORDERED: guaiFENesin SOLUTION 200 MG/10 ML CUP PO PRN (17:00)
[2017-10-11] MEDS ORDERED: BENZONATATE 100 MG CAP PO PRN (17:00)
[2017-10-11] MEDS ORDERED: ACETAMINOPHEN/HYDROcodone 325 MG/7.5 MG TAB PO PRN (17:00)
[2017-10-11] MEDS ORDERED: CLORAZEPATE 3.75 MG PO PRN (17:00)
[2017-10-11] MEDS ORDERED: METOPROLOL TARTRATE 25 MG TAB PO PRN (17:00)
[2017-10-11 17:14] LABS: AUTOMATED NEUTROPHIL # 17.8 TH/MM3 (1.8-7.7); BASOPHIL % 0.1 % (0.0-2.0); HEMATOCRIT 34.3 % (35.0-46.0); HEMO FLAGS DIFF FINAL; LYMPH % 1.3 % (9.0-44.0); LYMPHOCYTE # 0.2 TH/MM3 (1.0-4.8); MEAN CELL VOLUME 91.8 FL (80.0-100.0); MEAN CORPUSCULAR HEMOGLOBIN 29.6 PG (27.0-34.0); MEAN CORPUSCULAR HGB CONC 32.2 % (32.0-36.0); MONO % 2.2 % (0.0-8.0); NEUT % 96.4 % (16.0-70.0); PLATELET COUNT 227 TH/MM3 (150-450); RED BLOOD COUNT 3.74 MIL/MM3 (4.00-5.30); RED CELL DISTRIBUTION WIDTH 18.9 % (11.6-17.2); WHITE BLOOD COUNT 18.4 TH/MM3 (4.0-11.0)
[2017-10-11] MEDS ORDERED: DIAZEPAM 2 MG TAB PO PRN (17:15)
[2017-10-11 17:24] LABS: APTT (PATIENT) 40.8 SEC (24.3-30.1); INTERNATIONAL NORMALIZED RATIO 2.1 RATIO; PROTHROMBIN TIME - PATIENT 24.5 SEC (9.8-11.6)
[2017-10-11 17:36] LABS: ALT (GPT) 385 U/L (10-53); ANION GAP 11 MEQ/L (5-15); AST (GOT) 82 U/L (15-37); BLOOD UREA NITROGEN 33 MG/DL (7-18); CHLORIDE 108 MEQ/L (98-107); GLOMERULAR FILTRATION RATE 26 ML/MIN (>89); POTASSIUM 4.7 MEQ/L (3.5-5.1); SODIUM (NA) 138 MEQ/L (136-145)
[2017-10-11 17:39] LABS: ALKALINE PHOSPHATASE 155 U/L (45-117); TOTAL BILIRUBIN ADULT 0.3 MG/DL (0.2-1.0)
[2017-10-11] MEDS: guaiFENesin/DEXTROMETHORPHAN 200 MG/20 MG/10 ML CUP PO PRN ×2 (18:05→21:59)
[2017-10-11] MEDS: RESP: ALBUTEROL 2.5 MG/IPRATROPIUM 0.5 MG NEB (PRN) NEB ×2 (21:08→23:52)
[2017-10-11] MEDS: SODIUM CHLORIDE 0.9% FLUSH 10 ML FLUSH IV FLUSH SCH (21:40)
[2017-10-11] MEDS ORDERED: WARFARIN SOD 1 MG TAB PO ONE (22:30)
--- NOTE | 2017-10-11 22:50 | RADRPT ---
EXAM DATE/TIME: 10/11/2017 22:32 [facility] COMPARISON: CHEST SINGLE AP, October 10, 2017, 12:17. INDICATIONS : Cough and congestion. MEDICAL HISTORY : Cardiovascular disease. Hypertension. Carcinoma, breast. SURGICAL HISTORY : Left breast lumpectomy. ENCOUNTER: Initial ACUITY: 3 days PAIN SCORE: 0/10 LOCATION: Bilateral chest FINDINGS: A single view of the chest demonstrates mild basilar airspace disease. No significant effusion. No pn eumothorax. Heart size within normal limits. Tortuous aorta. CONCLUSION: 1. Mild basilar airspace disease, left greater than right. Differential diagnosis includes a mild bro nchopneumonia. No effusion or pneumothorax. James Harrison MD on October 11, 2017 at 22:46 Board Certified Radiologist. This report was verified electronically.
[2017-10-11] MEDS: PANTOPRAZOLE SOD 20 MG DELAYED RELEASE TAB PO SCH (22:51)
[2017-10-11] MEDS: DILTIAZEM-CD 180 MG CAP ER PO SCH (22:52)
[2017-10-11] MEDS: GABAPENTIN 300 MG CAP PO SCH (22:52)
[2017-10-11] MEDS ORDERED: methylPREDNISolone SOD SUCC 40 MG/1 ML VIAL IV PUSH ONE (23:15)
[2017-10-12] VITALS (10 sets, daily range): BP systolic 130–158; BP diastolic 62–75; PULSE 81–101; RESP 18–24; TEMP 97.3–98.6; O2SAT 93–97
[2017-10-12] MEDS: guaiFENesin/DEXTROMETHORPHAN 200 MG/20 MG/10 ML CUP PO PRN ×4 (03:11→18:00)
[2017-10-12] MEDS: RESP: ALBUTEROL 2.5 MG/IPRATROPIUM 0.5 MG NEB (PRN) NEB ×4 (03:30→15:33)
[2017-10-12] MEDS: CEFEPIME INJ 2,000 MG in SODIUM CHLORIDE 0.9% INJ 100 ML IV SCH ×2 (05:38→17:34)
[2017-10-12] MEDS: LEVOTHYROXINE SODIUM 100 MCG TAB PO SCH (05:39)
--- NOTE | 2017-10-12 08:00 | HHI.PR ---
Subjective Remarks Follow-up pneumonia, elevated liver function tests The patient is at the margin of the bed, she was able to stand his therapy, she feels short of breath. Cough of productive of yellow sputum no blood in it. No nausea or vomiting. No diarrhea or constipation. Objective Vitals Vital Signs Date Time Temp Pulse Resp B/P (MAP) Pulse Ox O2 Delivery O2 Flow Rate FiO2 10/12/17 07:22 95 Nasal Cannula 2.00 10/12/17 04:00 Nasal Cannula 3.00 10/12/17 04:00 86 10/12/17 04:00 98.6 86 22 146/65 (92) 93 10/12/17 00:09 95 Nasal Cannula 2.00 10/12/17 00:00 98.2 94 22 158/72 (100) 95 10/12/17 00:00 Nasal Cannula 3.00 10/12/17 00:00 94 10/11/17 22:00 Nasal Cannula 3.00 10/11/17 22:00 86 10/11/17 21:13 97 Nasal Cannula 4.00 10/11/17 20:34 98.1 81 22 149/69 (95) 95 10/11/17 17:21 97.9 83 18 126/59 (81) 98 10/11/17 17:16 83 20 151/70 (97) 99 Nasal Cannula 2.00 10/11/17 15:15 82 19 146/77 (100) 98 Nasal Cannula 2.00 10/11/17 13:50 95 Nasal Cannula 2.00 10/11/17 13:39 84 21 138/75 (96) 97 Nasal Cannula 2.00 10/11/17 13:35 92 Room Air 10/11/17 13:27 118/64 (82) 10/11/17 13:21 98.5 91 20 93 Room Air I/O 10/11/17 10/11/17 10/11/17 10/12/17 10/12/17 10/12/17 07:00 15:00 23:00 07:00 15:00 23:00 Intake Total 250 ml 240 ml Output Total 400 ml Balance 250 ml -160 ml Intake Oral 240 ml IV Total 250 ml Output Urine Total 400 ml # Bowel Movements 0 Result Diagram: 10/11/17 1630 10/11/17 [address] Angiography 10/11/17 1415 Signed Impressions: Service Date/Time: Wednesday, October 11, 2017 15:00 - CONCLUSION: 1. No pulmonary embolus. 2. However, there is a reticulonodular pattern in both lower lobes, left greater than right with areas characteristic of a tree in bud pattern suggesting atypical infection such as SHALOM. 3. Nodular like area is predominantly an interstitial process in a deshaun-fissural distribution posteriorly in the right upper lobe and probably postinflammatory. I would recommend a followup noncontrasted CT scan of the chest in 3 months to ensure stability/resolution, Jacinto Pack MD Chest X-Ray 10/11/17 0000 Signed Impressions: Service Date/Time: Wednesday, October 11, 2017 22:32 - CONCLUSION: 1. Mild basilar airspace disease, left greater than right. Differential diagnosis includes a mild bronchopneumonia. No effusion or pneumothorax. James Harrison MD Objective Remarks GENERAL: This is a well-nourished, well-developed patient, in mild distress from cough and wheezing CARDIOVASCULAR: Regular rate and rhythm without murmurs, gallops, or rubs. RESPIRATORY: bilateral inspiratory and expiratory wheezing GASTROINTESTINAL: Abdomen soft, non-tender, nondistended. No guarding. MUSCULOSKELETAL: Extremities without clubbing, cyanosis. No calf tenderness. Bilateral mild pitting edema at the ankles. NEUROLOGICAL: Awake and alert. Motor and sensory grossly within normal limits. Normal speech. A/P Assessment and Plan Pneumonia. Failed outpatient. Possibly atypical. With history of recent leprosy treatment for her . Follow recommendations by infectious disease specialist. Azithromycin/cefepime. Cultures including sputum cultures/AFB cultures/blood cultures pending Resumed home medications, monitor. Symptomatic treatment of cough with Robitussin/codeine. Nebulizers when necessary. Will hold off on prednisone at this point. Only if patient is severely tight/ wheezing, we'll consider steroid therapy. Acute transaminitis. Monitor LFTs DC norco- use oxycodone on its own Liver US noted, hepatitis profile pending GI consult for further eval- suspects meds induced Check AFP level, ROSALEE, AMA, ASMA, Hepatitis profile, Ferritin, Iron saturation, Ceruloplasmin, Alpha 1 Antitrypsin Monitor LFTs Avoid hepatotoxic medications HTN Afib- s/p ablation in 1995, dec 2016 CKD- GFR 40 at baseline - due to NSAID induced nephropathy Hypothyroidism H/o breast cancer- left side- s/p chemo and s/p radiation, s/p lumpectomy- finished treatment in 2013 Recent diagnosis of intestinal polyp with mild GI bleeding by capsule endoscopy. Planned for removal at [facility] next week. DVT prophylaxis on Coumadin. GI prophylaxis on pantoprazole. Discussed Condition With Patient, nurse, at bedside Nicole Andersen MD Oct 12, 2017 08:00
[2017-10-12] MEDS: DULoxetine HCl DR 60 MG CAP PO SCH (08:25)
[2017-10-12] MEDS: LISINOPRIL 20 MG TAB PO SCH (08:25)
[2017-10-12] MEDS: DILTIAZEM-CD 180 MG CAP ER PO SCH ×2 (08:26→20:59)
[2017-10-12] MEDS: PANTOPRAZOLE SOD 20 MG DELAYED RELEASE TAB PO SCH ×2 (08:26→20:59)
[2017-10-12] MEDS: SODIUM CHLORIDE 0.9% FLUSH 10 ML FLUSH IV FLUSH SCH ×2 (08:27→20:59)
[2017-10-12] MEDS ORDERED: NON-FORMULARY DRUG (Omeprazole 20 MG) PO SCH (09:00)
[2017-10-12] MEDS ORDERED: DILTIAZEM-CD 180 MG CAP ER PO SCH (09:00)
[2017-10-12] MEDS ORDERED: PANTOPRAZOLE SOD 20 MG DELAYED RELEASE TAB PO SCH (09:00)
[2017-10-12] MEDS ORDERED: GABAPENTIN 300 MG CAP PO SCH (09:00)
[2017-10-12] MEDS ORDERED: DILTIAZEM 180 MG PO SCH (09:00)
[2017-10-12 09:04] LABS: HEMATOCRIT 32.7 % (35.0-46.0); HEMO FLAGS DIFF FINAL; LYMPH % 1.6 % (9.0-44.0); LYMPHOCYTE # 0.2 TH/MM3 (1.0-4.8); MEAN CELL VOLUME 89.7 FL (80.0-100.0); MEAN CORPUSCULAR HEMOGLOBIN 29.1 PG (27.0-34.0); MEAN CORPUSCULAR HGB CONC 32.4 % (32.0-36.0); NEUT % 95.4 % (16.0-70.0); PLATELET COUNT 202 TH/MM3 (150-450); RED BLOOD COUNT 3.64 MIL/MM3 (4.00-5.30); RED CELL DISTRIBUTION WIDTH 18.9 % (11.6-17.2); WHITE BLOOD COUNT 14.7 TH/MM3 (4.0-11.0)
[2017-10-12 09:12] LABS: INTERNATIONAL NORMALIZED RATIO 2.5 RATIO
--- NOTE | 2017-10-12 10:31 | PD.CONS ---
HPI History of Present Illness This is a 72 year old female who presented to the emergency room for evaluation of worsening shortness of breath. She has a history of Atrial Fibrillation (S/ P Ablation) and is on Coumadin for chronic anticoagulation. She also has a history of left breast cancer, s/p lumpectomy, radiation, chemotherapy in 2013. She was admitted for pneumonia, failed outpatient (possibly atypical based on imaging and recent leprosy treatment for her ). She was noted to have elevated LFTs with T. Bilirubin 0.3, AST 82, ALT 385, ALk Phosph 155 and GI has been consulted for further evaluation. Of note, she had normal LFTs as recently as 08/26/17- T. Bili 0.4, AST 14, ALT 31, Alk Phosph 112. She has been on Zithromax and Prednisone at home for pneumonia. Her cardizem dosage was also was recently increased about 3 weeks ago. She also takes Lortab for pain, but denies any changes in this. She denies any nausea, vomiting, abdominal pain. She has not had any changes in her appetite and has not lost any weight. She has not had any changes in her bowel habits. She denies any known history of any liver disease. She is status post cholecystectomy. She only rarely drinks alcohol. (Sonali Brandon) PFSH Past Medical History HTN Atrial Fibrillation Left breast cancer, s/p lumpectomy, chemotherapy, radiation CKD Hypothyroidism Pneumonia Pancreatitis Past Surgical History Ablation for atrial fibrillation Cholecystectomy Hysterectomy Knee arthroscopies Carpal tunnel sx (Sonali Brandon) Coded Allergies: diclofenac (Verified Allergy, Severe, 10/11/17) "EFFECTS KIDNEY FUNCTION" etodolac (Verified Allergy, Severe, 10/11/17) "EFFECTS KIDNEY FUNCTION" flurbiprofen (Verified Allergy, Severe, 10/11/17) "EFFECTS KIDNEY FUNCTION" ibuprofen (Verified Allergy, Severe, 10/11/17) "EFFECTS KIDNEY FUNCTION" indomethacin (Verified Allergy, Severe, 10/11/17) "EFFECTS KIDNEY FUNCTION" ketoprofen (Verified Allergy, Severe, 10/11/17) "EFFECTS KIDNEY FUNCTION" ketorolac (Verified Allergy, Severe, 10/11/17) "EFFECTS KIDNEY FUNCTION" naproxen (Verified Allergy, Severe, 10/11/17) "EFFECTS KIDNEY FUNCTION" oxaprozin (Verified Allergy, Severe, 10/11/17) "EFFECTS KIDNEY FUNCTION" Medications Allergies Coded Allergies Type Severity Reaction Last Updated Verified diclofenac Allergy Severe 10/11/17 Yes etodolac Allergy Severe 10/11/17 Yes flurbiprofen Allergy Severe 10/11/17 Yes ibuprofen Allergy Severe 10/11/17 Yes indomethacin Allergy Severe 10/11/17 Yes ketoprofen Allergy Severe 10/11/17 Yes ketorolac Allergy Severe 10/11/17 Yes naproxen Allergy Severe 10/11/17 Yes oxaprozin Allergy Severe 10/11/17 Yes Active Scripts Medications Dose Route/Sig Max Daily Dose Days Date Category Dose Instructions Diltiazem ER 24 HR (Diltiazem HCl) 180 Mg Caper 180 Mg PO BID 10/11/17 Reported Zithromax Z-Kane (Azithromycin) 250 Mg Dspk 250 Mg PO DIRECTED 10/10/17 Rx 500 MG (2 tabs) day 1, then 1 tab days 2-5. Benzonatate 200 Mg Cap 200 Mg PO TID PRN 10/10/17 Rx Prednisone 20 Mg Tab 40 Mg PO DAILY 10/10/17 Rx Take 40 mg (2 tablets) daily for 5 days Ventolin Hfa 18 GM Inh (Albuterol Sulfate) 90 Mcg/Act Aer 1 Puff INH Q4H PRN 10/10/17 Rx Voltaren (Diclofenac Sodium) 1 % Gel..gram. 1 Applic TOPICAL PRN 10/10/[address] (Duloxetine HCl) 60 Mg Capdr 60 Mg PO DAILY 04/22/17 Reported Tranxene T (Clorazepate Dipotassium) 7.5 Mg Tab 3.75 Mg PO BID PRN 04/22/17 Reported Vicodin Es (Hydrocodone-Acetaminophen) 7.5-300 Tab 1 Tab PO Q4H PRN 04/22/17 Reported Neurontin (Gabapentin) 600 Mg Tab 600 Mg PO HS 04/22/17 Reported Soma (Carisoprodol) 350 Mg Tab 350 Mg PO Q6H PRN 04/22/17 Reported Metoprolol Tartrate 25 Mg Tab 25 Mg PO DAILY PRN 04/22/17 Reported Lisinopril 20 Mg Tab 20 Mg PO DAILY 04/22/17 Reported Omeprazole 20 Mg Tab 20 Mg PO BID 04/22/17 Reported Synthroid (Levothyroxine Sodium) 100 Mcg Tab 100 Mcg PO DAILY 04/22/17 Reported Coumadin (Warfarin) 2 Mg Tab 2 Mg PO DAILY 04/22/17 Reported Family History Sister from lung cancer in her 40s Mother with lung cancer in her 70s 3 uncles with lung cancer Father had heart problems Social History Quit smoking 1998 No use of etoh, illicit drugs (BrandonSonali) Review of Systems Constitutional: COMPLAINS OF: Fatigue, DENIES: Weight loss, Change in appetite Respiratory: COMPLAINS OF: Cough, Sputum production, Shortness of breath Gastrointestinal: DENIES: Abdominal pain, Black stools, Bloody stools, Constipation, Diarrhea, Nausea, Vomiting, Difficulty Swallowing, Anorexia, Swelling of Abdomen, Heartburn, Hematemesis Musculoskeletal: COMPLAINS OF: Joint pain Integumentary: DENIES: Abnormal pigmentation Hematologic/lymphatic: DENIES: Bruising Neurologic: DENIES: Headache Psychiatric: DENIES: Confusion (Sonali Brandon) GI Exam Vitals I&O Vital Signs Date Time Temp Pulse Resp B/P (MAP) Pulse Ox O2 Delivery O2 Flow Rate FiO2 10/12/17 08:00 97.6 101 22 130/75 (93) 95 10/12/17 07:22 95 Nasal Cannula 2.00 10/12/17 04:00 Nasal Cannula 3.00 10/12/17 04:00 86 10/12/17 04:00 98.6 86 22 146/65 (92) 93 10/12/17 00:09 95 Nasal Cannula 2.00 10/12/17 00:00 98.2 94 22 158/72 (100) 95 10/12/17 00:00 Nasal Cannula 3.00 10/12/17 00:00 94 10/11/17 22:00 Nasal Cannula 3.00 10/11/17 22:00 86 10/11/17 21:13 97 Nasal Cannula 4.00 10/11/17 20:34 98.1 81 22 149/69 (95) 95 10/11/17 17:21 97.9 83 18 126/59 (81) 98 10/11/17 17:16 83 20 151/70 (97) 99 Nasal Cannula 2.00 10/11/17 15:15 82 19 146/77 (100) 98 Nasal Cannula 2.00 10/11/17 13:50 95 Nasal Cannula 2.00 10/11/17 13:39 84 21 138/75 (96) 97 Nasal Cannula 2.00 10/11/17 13:35 92 Room Air 10/11/17 13:27 118/64 (82) 10/11/17 13:21 98.5 91 20 93 Room Air I/O 10/11/17 10/11/17 10/11/17 10/12/17 10/12/17 10/12/17 07:00 15:00 23:00 07:00 15:00 23:00 Intake Total 250 ml 240 ml Output Total 400 ml Balance 250 ml -160 ml Intake Oral 240 ml IV Total 250 ml Output Urine Total 400 ml # Bowel Movements [address] Angiography 10/11/17 1415 Signed Impressions: Service Date/Time: Wednesday, October 11, 2017 15:00 - CONCLUSION: 1. No pulmonary embolus. 2. However, there is a reticulonodular pattern in both lower lobes, left greater than right with areas characteristic of a tree in bud pattern suggesting atypical infection such as SHALOM. 3. Nodular like area is predominantly an interstitial process in a deshaun-fissural distribution posteriorly in the right upper lobe and probably postinflammatory. I would recommend a followup noncontrasted CT scan of the chest in 3 months to ensure stability/resolution, Jacinto Pack MD Chest X-Ray 10/11/17 0000 Signed Impressions: Service Date/Time: Wednesday, October 11, 2017 22:32 - CONCLUSION: 1. Mild basilar airspace disease, left greater than right. Differential diagnosis includes a mild bronchopneumonia. No effusion or pneumothorax. James Harrison MD Laboratory Test 10/11/17 16:30 10/11/17 21:18 10/12/17 08:19 White Blood Count 18.4 TH/MM3 14.7 TH/MM3 Red Blood Count 3.74 MIL/MM3 3.64 MIL/MM3 Hemoglobin 11.0 GM/DL 10.6 GM/DL Hematocrit 34.3 % 32.7 % Mean Corpuscular Volume 91.8 FL 89.7 FL Mean Corpuscular Hemoglobin 29.6 PG 29.1 PG Mean Corpuscular Hemoglobin Concent 32.2 % 32.4 % Red Cell Distribution Width 18.9 % 18.9 % Platelet Count 227 TH/MM3 202 TH/MM3 Mean Platelet Volume 8.9 FL 8.3 FL Neutrophils (%) (Auto) 96.4 % 95.4 % Lymphocytes (%) (Auto) 1.3 % 1.6 % Monocytes (%) (Auto) 2.2 % 3.0 % Eosinophils (%) (Auto) 0.0 % 0.0 % Basophils (%) (Auto) 0.1 % 0.0 % Neutrophils # (Auto) 17.8 TH/MM3 14.0 TH/MM3 Lymphocytes # (Auto) 0.2 TH/MM3 0.2 TH/MM3 Monocytes # (Auto) 0.4 TH/MM3 0.4 TH/MM3 Eosinophils # (Auto) 0.0 TH/MM3 0.0 TH/MM3 Basophils # (Auto) 0.0 TH/MM3 0.0 TH/MM3 CBC Comment DIFF FINAL DIFF FINAL Differential Comment Prothrombin Time 24.5 SEC 29.0 SEC Prothromb Time International Ratio 2.1 RATIO 2.5 RATIO Activated Partial Thromboplast Time 40.8 SEC Blood Urea Nitrogen 33 MG/DL Creatinine 1.88 MG/DL Random Glucose 144 MG/DL Total Protein 7.3 GM/DL Albumin 3.1 GM/DL Calcium Level 9.2 MG/DL Alkaline Phosphatase 155 U/L Aspartate Amino Transf (AST/SGOT) 82 U/L Alanine Aminotransferase (ALT/SGPT) 385 U/L Total Bilirubin 0.3 MG/DL Sodium Level 138 MEQ/L Potassium Level 4.7 MEQ/L Chloride Level 108 MEQ/L Carbon Dioxide Level 19.0 MEQ/L Anion Gap 11 MEQ/L Estimat Glomerular Filtration Rate 26 ML/MIN Date/Time Source Procedure Growth Status 10/12/17 08:19 Blood Line Mycobacterial Culture Pending Received 10/12/17 05:45 Sputum Expectorated Sputum Acid Fast Stain Pending Received 10/12/17 05:45 Sputum Expectorated Sputum Mycobacterial Culture Pending Received 10/11/17 20:00 Urine Clean Catch Legionella Antigen - Final PRESUMPTIVE NEGATIVE FOR LEGIONELLA P... Complete Physical Examination HEENT: Normocephalic; atraumatic; no jaundice. CHEST: Resp even/unlabored, diminished CARDIAC: RRR ABDOMEN: Soft, nondistended, nontender; no hepatosplenomegaly; bowel sounds are present in all four quadrants. EXTREMITIES: No clubbing, cyanosis, or edema. SKIN: Normal; no rash; no jaundice. COMBINATION PRESSER: No focal deficits; alert and oriented times three. (Sonali Brandon) Assessment and Plan Plan ASSESSMENT: - Elevated LFTs, acute. Pt had normal LFTs on 08/26/17. Recently started on Azithromycin, Prednisone, and then had her Cardizem increased 3 weeks ago. Currently hospitalized for failed outpatient pneumonia, possibly atypical. Liver US (10/12/17)--> Hepatic steatosis. Prior cholecystectomy. Atrophic right kidney. No biliary ductal dilatation. No n/v/pain. Likely secondary to medications vs. infection. She was recently started on both azithromycin and prednisone, both can cause liver injury, but usually more cholestasis than hepatocellular. She is being evaluated for possible atypical pneumonia, with CTA suggestive of possible atypical infection such as SHALOM. Her liver enzyme derangement could be related to her underlying infection. She does have fatty liver on US, but again LFTs were normal last month. Suspect r/t infection vs. medications, but will order liver workup to exclude other etiology. - Failed outpatient pneumonia, possibly atypical. CTA noted reticulonodular pattern in bother lower lobes, L > R with areas characteristic of a "tree in bud" pattern suggesting atypical infection such as SHALOM, nodular like area RUL. Azithromycin, Cefepime, nebs per attending. - Atrial fibrillation, on Coumadin per attending. - HTN, CKD, Hypothyroidism per attending. - Hx left breast cancer, s/p lumpectomy, rdx, chemo 2013. PLAN: - Low fat diet - AFP level - ROSALEE, AMA, ASMA - Hepatitis profile - Ferritin, Iron saturation - Ceruloplasmin, Alpha 1 Antitrypsin - Monitor LFTs - Avoid hepatotoxin medications - Supportive care - Further recommendations to follow based on results of above - Pt seen and examined by Dr. Cross and myself and this note is written on her behalf (Sonali Brandon) Physician Comments seen, examined agree with above old records reviewed-had elevation of liver enzymes in the past -previous imaging suggesting fatty liver she is following with for anemia, hem positive stool Was recently found to have small bowel poyp on capsule endoscopy-scheduled to have enteroscopy at [facility] next week We will ask to assume gi care in (Bratu,Sonali SalinasP Oct 12, 2017 10:31 Shavon Cross MD Oct 12, 2017 20:29
--- NOTE | 2017-10-12 10:46 | RADRPT ---
EXAM DATE/TIME: 10/12/2017 08:51 [facility] COMPARISON: No previous studies available for comparison. INDICATIONS : Increased lab values. MEDICAL HISTORY : Hypothyroid. Cardiac disorders. Afib. HTN. GERD. Breast cancer. SURGICAL HISTORY : Cardiac ablation. Cholecystectomy. Hysterectomy. Left knee surgery. Carpal tunnel; bilateral. Br east lumpectomy. Lithotripsy. ENCOUNTER: Initial ACUITY: 2 days PAIN SCORE: 0/10 LOCATION: Bilateral upper quadrant MEASUREMENTS: LIVER: 16.5 cm length COMMON DUCT: 9 mm RIGHT KIDNEY: 9.0 x 4.8 x 4.6 cm SPLEEN: 9.6 cm length FINDINGS: LIVER: The liver is diffusely echogenic. No mass or ductal dilatation. Hepatopedal flow within the portal ve in. COMMON DUCT: No intraluminal mass or stone visualized. GALLBLADDER: Surgically absent. PANCREAS: The visualized portions are within normal limits. RIGHT KIDNEY: Atrophic. Mild pelvocaliectasis. SPLEEN: No focal lesion. CONCLUSION: Hepatic steatosis. Prior cholecystectomy. Atrophic right kidney. Cuong Quintero Jr., MD on October 12, 2017 at 10:31 Board Certified Radiologist. This report was verified electronically.
[2017-10-12 14:02] LABS: TRANSFERRIN IRON PROFILE 283 MG/DL (200-360)
[2017-10-12 14:04] LABS: FERRITIN 105 NG/ML (8-252)
--- NOTE | 2017-10-12 14:04 | PD.ID.CON ---
History of Present Illness Service ID Consult Requested By Reason for Consult Evaluation and Mment of Pneumonia in a patient with suspected SHALOM. Primary Care Physician Bryce Conte M.D. Diagnoses: History of Present Illness is a 72-year-old female with past medical history significant for coronary artery disease, atrial fibrillation status post cardiac ablation who sees Cleat Blanker. Patient reports that she was a smoker but quit in 1998 but she had smoked for approximately 34+ years. Patient reports she has had progressive shortness of breath for the last 3-4 months but this was being attributed to her cardiac issues she has never seen a executive services administrator and never been formally diagnosed with COPD. Patient denies any prior history of pneumonia. Patient reports that she recently saw a cardiothoracic surgeon for consideration for cardiac ablation but was told that other than tachycardia she did not meet criteria for ablation. Her Cardizem dose was recently increased. Patient reports that over the last 3 months she has had tightness in her chest, shortness of breath which has progressively worsened to where she cannot performed her daily activities and gets short of breath on minimal exertion from going from one room to the other. Patient reports being an avid traveler and has traveled extensively. Her most recent visit was in the [facility] in [place] but she also has had a visit in [place] in the recent past. She denies any exposure to patients or people with known tuberculosis. She does mention that her was recently diagnosed with mycobacterium leprae and has been on treatment for leprosy for last 7 months. reports being on multiple drug therapy and following up with [facility] in [place]. He goes on to report this Mycobacterium A was diagnosed based on a skin biopsy when he had numbness and skin changes in his left elbow. 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 He is deemed as non contagious at this point and is compliant with meds and follow ups. Her past medical history is also significant for history of left breast cancer, s/p lumpectomy, radiation, chemotherapy in 2013. She reports she is in remission and cancer free for the last 2 years. She does not have a port in place. With this background patient presents to the emergency room for evaluation of worsening shortness of breath. She initially presented to the emergency department for evaluation of shortness of breath but was discharged from the emergency room on prednisone and Zithromax. She was admitted for pneumonia, failed outpatient. Patient was noted to have elevated LFTs with AST 82, ALT 385 , alkaline phosphatase 155 and GI was consulted. An ultrasound of the liver was done which shows fatty liver. Patient reports that she had positive stool test for blood and therefore underwent workup for anemia as well as EGD, colonoscopy followed by capsule endoscopy. She reports that her capsule endoscopy was positive and that she was supposed to have a procedure done as outpatient for this but unfortunately got admitted prior to that. She denies any nausea, vomiting, abdominal pain. She has not had any changes in her appetite and has not lost any weight. She has not had any changes in her bowel habits. She denies any known history of any liver disease. She is status post cholecystectomy. She only rarely drinks alcohol. Infectious disease is consulted for evaluation and management of pneumonia in a patient with suspected SHALOM. Review of Systems Constitutional: COMPLAINS OF: Fatigue, DENIES: Diaphoretic episodes, Fever, Weight gain, Weight loss, Chills, Dizziness, Change in appetite, Night Sweats Endocrine: DENIES: Abnorml menstrual pattern, Heat/cold intolerance, Polydipsia , Polyuria, Polyphagia Eyes: DENIES: Blurred vision, Diplopia, Eye inflammation, Eye pain, Vision loss , Photosensitivity, Double Vision Ears, nose, mouth, throat: DENIES: Tinnitus, Hearing loss, Vertigo, Nasal discharge, Oral lesions, Throat pain, Hoarseness, Ear Pain, Running Nose, Epistaxis, Sinus Pain, Toothache, Odynophagia Respiratory: COMPLAINS OF: Cough, Snoring, Wheezing, Sputum production, Shortness of breath, DENIES: Apneas, Hemoptysis Cardiovascular: COMPLAINS OF: Dyspnea on Exertion, Orthopnea, DENIES: Chest pain, Palpitations, Syncope, PND, Lower Extremity Edema, Claudication Gastrointestinal: DENIES: Abdominal pain, Black stools, Bloody stools, Constipation, Diarrhea, Nausea, Vomiting, Difficulty Swallowing, Anorexia Genitourinary: DENIES: Abnormal vaginal bleeding, Dysmenorrhea, Dyspareunia, Sexual dysfunction, Urinary frequency, Urinary incontinence, Urgency, Hematuria , Dysuria, Nocturia, Vaginal discharge Musculoskeletal: DENIES: Joint pain, Muscle aches, Stiffness, Joint Swelling, Back pain, Neck pain Integumentary: DENIES: Abnormal pigmentation, Pruritus, Rash, Nail changes, Breast masses, Breast skin changes, Nipple discharge Hematologic/lymphatic: DENIES: Bruising, Lymphadenopathy Immunologic/allergic: DENIES: Eczema, Urticaria Neurologic: DENIES: Abnormal gait, Headache, Localized weakness, Paresthesias, Seizures, Speech Problems, Tremor, Poor Balance Psychiatric: DENIES: Anxiety, Confusion, Mood changes, Depression, Hallucinations, Agitation, Suicidal Ideation, Homicidal Ideation, Delusions Except as stated in HPI: all other systems reviewed are Neg Past Family Social History Allergies: Coded Allergies: diclofenac (Verified Allergy, Severe, 10/11/17) "EFFECTS KIDNEY FUNCTION" etodolac (Verified Allergy, Severe, 10/11/17) "EFFECTS KIDNEY FUNCTION" flurbiprofen (Verified Allergy, Severe, 10/11/17) "EFFECTS KIDNEY FUNCTION" ibuprofen (Verified Allergy, Severe, 10/11/17) "EFFECTS KIDNEY FUNCTION" indomethacin (Verified Allergy, Severe, 10/11/17) "EFFECTS KIDNEY FUNCTION" ketoprofen (Verified Allergy, Severe, 10/11/17) "EFFECTS KIDNEY FUNCTION" ketorolac (Verified Allergy, Severe, 10/11/17) "EFFECTS KIDNEY FUNCTION" naproxen (Verified Allergy, Severe, 10/11/17) "EFFECTS KIDNEY FUNCTION" oxaprozin (Verified Allergy, Severe, 10/11/17) "EFFECTS KIDNEY FUNCTION" Past Medical History HTN Atrial Fibrillation CAD Left breast cancer, s/p lumpectomy, chemotherapy, radiation CKD Hypothyroidism Pneumonia Pancreatitis Past Surgical History Ablation for atrial fibrillation Cholecystectomy Hysterectomy Knee arthroscopies Carpal tunnel sx Reported Medications Reported Meds & Active Scripts Active Zithromax Z-Kane (Azithromycin) 250 Mg Dspk 250 Mg PO DIRECTED 500 MG (2 tabs) day 1, then 1 tab days 2-5. Benzonatate 200 Mg Cap 200 Mg PO TID PRN Prednisone 20 Mg Tab 40 Mg PO DAILY Take 40 mg (2 tablets) daily for 5 days Ventolin Hfa 18 GM Inh (Albuterol Sulfate) 90 Mcg/Act Aer 1 Puff INH Q4H PRN Reported Diltiazem ER 24 HR (Diltiazem HCl) 180 Mg Caper 180 Mg PO BID Voltaren (Diclofenac Sodium) 1 % Gel..gram. 1 Applic TOPICAL PRN Cymbalta DR (Duloxetine HCl) 60 Mg Capdr 60 Mg PO DAILY Tranxene T (Clorazepate Dipotassium) 7.5 Mg Tab 3.75 Mg PO BID PRN Vicodin Es (Hydrocodone-Acetaminophen) 7.5-300 Tab 1 Tab PO Q4H PRN Neurontin (Gabapentin) 600 Mg Tab 600 Mg PO HS Soma (Carisoprodol) 350 Mg Tab 350 Mg PO Q6H PRN Metoprolol Tartrate 25 Mg Tab 25 Mg PO DAILY PRN Lisinopril 20 Mg Tab 20 Mg PO DAILY Omeprazole 20 Mg Tab 20 Mg PO BID Synthroid (Levothyroxine Sodium) 100 Mcg Tab 100 Mcg PO DAILY Coumadin (Warfarin) 2 Mg Tab 2 Mg PO DAILY Active Ordered Medications Current Medications Medications (Trade) Dose Ordered Sig/Reba Route Start Time Stop Time Status Last Admin (NS Flush) 2 ml UNSCH PRN IV FLUSH 10/11/17 16:30 (NS Flush) 2 ml BID IV FLUSH 10/11/17 21:00 10/12/17 08:27 (Narcan Inj) 0.4 mg UNSCH PRN IV PUSH 10/11/17 16:30 Azithromycin 500 mg/Sodium Chloride 250 ml @ 250 mls/hr Q24H IV 10/12/17 17:00 Cefepime HCl 2000 mg/Sodium Chloride 100 ml @ 200 mls/hr Q12H IV 10/12/17 06:00 10/12/17 05:38 (Soma) 350 mg Q6H PRN PO 10/11/17 17:00 (Cymbalta Dr) 60 mg DAILY PO 10/12/17 09:00 10/12/17 08:25 (Synthroid) 100 mcg DAILY@0600 PO 10/12/17 06:00 10/12/17 05:39 (Prinivil) 20 mg DAILY PO 10/12/17 09:00 10/12/17 08:25 (Lopressor) 25 mg DAILY PRN PO 10/11/17 17:00 (Coumadin) 2 mg DAILY@1600 PO 10/12/17 16:00 (Robitussin Dm 200-20 Mg/10 ml Liq) 10 ml Q4H PRN PO 10/11/17 17:00 10/12/17 12:26 (Duoneb Neb) 1 ampule Q2HR NEB PRN NEB 10/11/17 17:00 10/12/17 10:44 (Valium) 2 mg BID PRN PO 10/11/17 17:15 10/11/17 21:40 (Roxicodone) 5 mg Q6H PRN PO 10/11/17 19:45 10/12/17 10:37 (Neurontin) 600 mg HS PO 10/11/17 22:22 10/11/17 22:52 (Protonix) 20 mg BID PO 10/11/17 22:23 10/12/17 08:26 (Cardizem Cd) 180 mg BID PO 10/11/17 22:24 10/12/17 08:26 Family History Sister from lung cancer in her 40s Mother with lung cancer in her 70s 3 uncles with lung cancer Father had heart problems Social History Quit smoking 1999 No use of etoh, illicit drugs 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 Physical Exam Vital Signs Vital Signs Date Time Temp Pulse Resp B/P (MAP) Pulse Ox O2 Delivery O2 Flow Rate FiO2 10/12/17 09:00 93 2.00 10/12/17 08:00 101 10/12/17 08:00 97.6 101 22 130/75 (93) 95 10/12/17 07:22 95 Nasal Cannula 2.00 10/12/17 04:00 Nasal Cannula 3.00 10/12/17 04:00 86 10/12/17 04:00 98.6 86 22 146/65 (92) 93 10/12/17 00:09 95 Nasal Cannula 2.00 10/12/17 00:00 98.2 94 22 158/72 (100) 95 10/12/17 00:00 Nasal Cannula 3.00 10/12/17 00:00 94 10/11/17 22:00 Nasal Cannula 3.00 10/11/17 22:00 86 10/11/17 21:13 97 Nasal Cannula 4.00 10/11/17 20:34 98.1 81 22 149/69 (95) 95 10/11/17 17:21 97.9 83 18 126/59 (81) 98 10/11/17 17:16 83 20 151/70 (97) 99 Nasal Cannula 2.00 10/11/17 15:15 82 19 146/77 (100) 98 Nasal Cannula 2.00 Physical Exam GENERAL: This is a well-nourished, well-developed patient, in no apparent distress. SKIN: No rashes, ecchymoses or lesions. Cool and dry. HEAD: Atraumatic. Normocephalic. No temporal or scalp tenderness. EYES: Pupils equal round and reactive. Extraocular motions intact. No scleral icterus. No injection or drainage. ENT: Nose without bleeding, purulent drainage or septal hematoma. Throat without erythema, tonsillar hypertrophy or exudate. Uvula midline. Airway patent. NECK: Trachea midline. Supple, nontender, no meningeal signs. CARDIOVASCULAR: HS audible. RESPIRATORY: Wheezing bilaterally. Breath sounds equal bilaterally. GASTROINTESTINAL: Abdomen soft, non-tender, nondistended. Obese. MUSCULOSKELETAL: Extremities without clubbing, cyanosis, or edema. No joint tenderness, effusion, or edema noted. No calf tenderness. Negative Homans sign bilaterally. NEUROLOGICAL: Awake and alert. Non focal exam. Psych cooperative IV line sites with no e.o infection Laboratory Laboratory Tests Test 10/11/17 16:30 10/11/17 21:18 10/12/17 08:19 10/12/17 12:30 White Blood Count 18.4 14.7 Red Blood Count 3.74 3.64 Hemoglobin 11.0 10.6 Hematocrit 34.3 32.7 Mean Corpuscular Volume 91.8 89.7 Mean Corpuscular Hemoglobin 29.6 29.1 Mean Corpuscular Hemoglobin Concent 32.2 32.4 Red Cell Distribution Width 18.9 18.9 Platelet Count 227 202 Mean Platelet Volume 8.9 8.3 Neutrophils (%) (Auto) 96.4 95.4 Lymphocytes (%) (Auto) 1.3 1.6 Monocytes (%) (Auto) 2.2 3.0 Eosinophils (%) (Auto) 0.0 0.0 Basophils (%) (Auto) 0.1 0.0 Neutrophils # (Auto) 17.8 14.0 Lymphocytes # (Auto) 0.2 0.2 Monocytes # (Auto) 0.4 0.4 Eosinophils # (Auto) 0.0 0.0 Basophils # (Auto) 0.0 0.0 CBC Comment DIFF FINAL DIFF FINAL Differential Comment Prothrombin Time 24.5 29.0 Prothromb Time International Ratio 2.1 2.5 Activated Partial Thromboplast Time 40.8 Blood Urea Nitrogen 33 Creatinine 1.88 Random Glucose 144 Total Protein 7.3 Albumin 3.1 Calcium Level 9.2 Alkaline Phosphatase 155 Aspartate Amino Transf (AST/SGOT) 82 Alanine Aminotransferase (ALT/SGPT) 385 Total Bilirubin 0.3 Sodium Level 138 Potassium Level 4.7 Chloride Level 108 Carbon Dioxide Level 19.0 Anion Gap 11 Estimat Glomerular Filtration Rate 26 Hepatitis A IgM Antibody NEGATIVE Hepatitis B Surface Antigen NEGATIVE Hepatitis B Core IgM Antibody NEGATIVE Hepatitis C Antibody NEGATIVE Iron Level 22 Total Iron Binding Capacity 396 Percent Iron Saturation 5.6 Ferritin 105 Tumor Marker Alpha Fetoprotein 2.7 Date/Time Source Procedure Growth Status 10/12/17 08:19 Blood Line Mycobacterial Culture Pending Received 10/12/17 05:45 Sputum Expectorated Sputum Acid Fast Stain Pending Received 10/12/17 05:45 Sputum Expectorated Sputum Mycobacterial Culture Pending Received 10/11/17 20:00 Urine Clean Catch Legionella Antigen - Final PRESUMPTIVE NEGATIVE FOR LEGIONELLA P... Complete Result Diagram: 10/12/17 0819 10/11/17 1630 Imaging Last Impressions Liver Ultrasound 10/12/17 0000 Signed Impressions: Service Date/Time: Thursday, October 12, 2017 08:51 - CONCLUSION: Hepatic steatosis. Prior cholecystectomy. Atrophic right kidney. Cuong Quintero Jr., MD CT Angiography 10/11/17 1415 Signed Impressions: Service Date/Time: Wednesday, October 11, 2017 15:00 - CONCLUSION: 1. No pulmonary embolus. 2. However, there is a reticulonodular pattern in both lower lobes, left greater than right with areas characteristic of a tree in bud pattern suggesting atypical infection such as HSALOM. 3. Nodular like area is predominantly an interstitial process in a deshaun-fissural distribution posteriorly in the right upper lobe and probably postinflammatory. I would recommend a followup noncontrasted CT scan of the chest in 3 months to ensure stability/resolution, Jacinto Pack MD Chest X-Ray 10/11/17 0000 Signed Impressions: Service Date/Time: Wednesday, October 11, 2017 22:32 - CONCLUSION: 1. Mild basilar airspace disease, left greater than right. Differential diagnosis includes a mild bronchopneumonia. No effusion or pneumothorax. James Harrison MD Assessment and Plan Assessment and Plan Pneumonia ? early CAP vs atypical Tree in bud appearance on CT chest ? SHALOM COPD with acute exacerbation. CAD with Atrial fibrillation s/p ablation h/o GERD h/o Anemia s/p capsule endoscopy ? small intestine bleeder per pt description Recs Continue Cefepime IV Continue Azithro Case d/w : given strong family history and CT findings of Tree in bud would recommend a Bronchoscopy. No Prior formal diagnosis of COPD but symptoms suggestive of COPD. No outpatient executive services administrator. DC Airborne isolation has diagnosis of Leprosy but has been on treatment for last 7 months with clinical improvement. Lesions appear improved does not appear contagious no restrictions or isolation needed. Patient has no active lesions either. Likely contracted Leprosy from [place] secretions and handling of backyard waste (they will [place]) Emily Merida MD Oct 12, 2017 14:04
[2017-10-12 15:12] LABS: BICARBONATE 18.2 MEQ/L (21.0-32.0)
[2017-10-12] MEDS ORDERED: WARFARIN SOD 2 MG TAB PO SCH (16:00)
[2017-10-12 16:50] LABS: POTASSIUM 4.9 MEQ/L (3.5-5.1)
[2017-10-12] MEDS: AZITHROMYCIN INJ 500 MG in SODIUM CHLOR 0.9% 250 ML INJ 250 ML IV SCH (17:00)
[2017-10-12] MEDS: methylPREDNISolone SOD SUCC 40 MG/1 ML VIAL IV PUSH SCH ×2 (20:57→22:52)
[2017-10-12] MEDS: BUDESONIDE-FORMOTEROL 160/4.5 MCG INHALER INH SCH (20:57)
[2017-10-12] MEDS: ENOXAPARIN SODIUM 60 MG/0.6 ML SYRINGE SQ SCH (20:58)
[2017-10-12] MEDS: GABAPENTIN 300 MG CAP PO SCH (20:59)
[2017-10-13] VITALS (8 sets, daily range): BP systolic 107–158; BP diastolic 59–76; PULSE 75–100; RESP 18–22; TEMP 97.1–98.3; O2SAT 95–99
[2017-10-13] MEDS: guaiFENesin/DEXTROMETHORPHAN 200 MG/20 MG/10 ML CUP PO PRN ×3 (05:52→15:45)
[2017-10-13] MEDS: LEVOTHYROXINE SODIUM 100 MCG TAB PO SCH (05:53)
[2017-10-13] MEDS: methylPREDNISolone SOD SUCC 40 MG/1 ML VIAL IV PUSH SCH ×4 (05:53→23:04)
[2017-10-13] MEDS: CEFEPIME INJ 2,000 MG in SODIUM CHLORIDE 0.9% INJ 100 ML IV SCH (05:54)
[2017-10-13] MEDS: RESP: ALBUTEROL 2.5 MG/IPRATROPIUM 0.5 MG NEB (PRN) NEB ×3 (06:10→21:46)
[2017-10-13 07:03] LABS: AUTOMATED NEUTROPHIL # 12.2 TH/MM3 (1.8-7.7); HEMATOCRIT 32.8 % (35.0-46.0); HEMO FLAGS DIFF FINAL; LYMPH % 2.5 % (9.0-44.0); LYMPHOCYTE # 0.3 TH/MM3 (1.0-4.8); MEAN CELL VOLUME 90.5 FL (80.0-100.0); MEAN CORPUSCULAR HEMOGLOBIN 29.3 PG (27.0-34.0); MEAN CORPUSCULAR HGB CONC 32.4 % (32.0-36.0); MONO % 2.3 % (0.0-8.0); NEUT % 95.2 % (16.0-70.0); PLATELET COUNT 204 TH/MM3 (150-450); RED BLOOD COUNT 3.62 MIL/MM3 (4.00-5.30); RED CELL DISTRIBUTION WIDTH 18.6 % (11.6-17.2); WHITE BLOOD COUNT 12.8 TH/MM3 (4.0-11.0)
[2017-10-13 07:26] LABS: ANION GAP 9 MEQ/L (5-15); AST (GOT) 29 U/L (15-37); BICARBONATE 20.1 MEQ/L (21.0-32.0); BLOOD UREA NITROGEN 33 MG/DL (7-18); CHLORIDE 109 MEQ/L (98-107); GLOMERULAR FILTRATION RATE 33 ML/MIN (>89); POTASSIUM 5.4 MEQ/L (3.5-5.1); SODIUM (NA) 138 MEQ/L (136-145)
[2017-10-13 07:29] LABS: ALKALINE PHOSPHATASE 139 U/L (45-117); ALT (GPT) 220 U/L (10-53); TOTAL BILIRUBIN ADULT 0.2 MG/DL (0.2-1.0)
--- NOTE | 2017-10-13 08:03 | HHI.PR ---
Subjective Remarks Patient in bed says she feels very tired. No n/v/d/c. Some cough yellow color and also some brownish sputum production. No fever or chills. Objective Vitals Vital Signs Date Time Temp Pulse Resp B/P (MAP) Pulse Ox O2 Delivery O2 Flow Rate FiO2 10/13/17 06:17 96 Nasal Cannula 2.00 10/13/17 04:00 75 10/13/17 04:00 97.6 100 20 148/76 (100) 96 10/13/17 00:00 97.6 83 18 107/64 (78) 96 10/13/17 00:00 81 10/12/17 21:24 96 Nasal Cannula 2.00 10/12/17 20:00 97.3 83 18 139/62 (87) 95 10/12/17 20:00 Nasal Cannula 2.00 10/12/17 20:00 81 10/12/17 16:00 97.8 95 22 150/67 (94) 97 10/12/17 15:34 96 Nasal Cannula 2.00 10/12/17 12:00 98.0 87 24 141/63 (89) 96 10/12/17 09:00 93 2.00 I/O 10/12/17 10/12/17 10/12/17 10/13/17 10/13/17 10/13/17 07:00 15:00 23:00 07:00 15:00 23:00 Intake Total 240 ml 480 ml 480 ml Output Total 400 ml 500 ml Balance -160 ml -20 ml 480 ml Intake Oral 240 ml 480 ml 480 ml Output Urine Total 400 ml 500 ml # Voids 3 # Bowel Movements 0 1 1 Result Diagram: 10/13/17 0540 10/13/17 0540 Imaging Last Impressions Liver Ultrasound 10/12/17 0000 Signed Impressions: Service Date/Time: Thursday, October 12, 2017 08:51 - CONCLUSION: Hepatic steatosis. Prior cholecystectomy. Atrophic right kidney. Cuong Quintero Jr., MD CT Angiography 10/11/17 1415 Signed Impressions: Service Date/Time: Wednesday, October 11, 2017 15:00 - CONCLUSION: 1. No pulmonary embolus. 2. However, there is a reticulonodular pattern in both lower lobes, left greater than right with areas characteristic of a tree in bud pattern suggesting atypical infection such as SHALOM. 3. Nodular like area is predominantly an interstitial process in a deshaun-fissural distribution posteriorly in the right upper lobe and probably postinflammatory. I would recommend a followup noncontrasted CT scan of the chest in 3 months to ensure stability/resolution, Jacinto Pack MD Chest X-Ray 10/11/17 0000 Signed Impressions: Service Date/Time: Wednesday, October 11, 2017 22:32 - CONCLUSION: 1. Mild basilar airspace disease, left greater than right. Differential diagnosis includes a mild bronchopneumonia. No effusion or pneumothorax. James Harrison MD Objective Remarks GENERAL: This is a well-nourished, well-developed patient, in mild distress from cough and wheezing CARDIOVASCULAR: Regular rate and rhythm without murmurs, gallops, or rubs. RESPIRATORY: bilateral inspiratory and expiratory wheezing GASTROINTESTINAL: Abdomen soft, non-tender, nondistended. No guarding. MUSCULOSKELETAL: Extremities without clubbing, cyanosis. No calf tenderness. Bilateral mild pitting edema at the ankles. NEUROLOGICAL: Awake and alert. Motor and sensory grossly within normal limits. Normal speech. A/P Assessment and Plan Pneumonia. Failed outpatient. Possibly atypical. With history of recent leprosy treatment for her . No active lesions on her skin or husbands. Remove isolation per ID specialist Follow recommendations by infectious disease specialist. Continue IV abx Azithromycin/cefepime. Cultures including sputum cultures/AFB cultures/blood cultures pending. Pulm ff. ID specialist recommends bronchoscopy. Plan for bronch poss Tuesday or Tuesday per pulm. Resumed home medications, monitor. Symptomatic treatment of cough with Robitussin/codeine. Nebulizers when necessary. Will hold off on prednisone at this point. Only if patient is severely tight/ wheezing, we'll consider steroid therapy. Acute transaminitis. Monitor LFTs DC norco- use oxycodone on its own Liver US noted, hepatitis profile pending GI consult for further eval- suspects meds induced AFP level, ROSALEE, AMA, ASMA, Hepatitis profile, Ferritin, Iron saturation, Ceruloplasmin, Alpha 1 Antitrypsin Monitor LFTs Discussed with Dr Clay LINDSEY. Likely findings related to infection and medications. 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 Planned for removal at [facility] next week. DVT prophylaxis on Coumadin. GI prophylaxis on pantoprazole. Discussed Condition With Patient, nurse, at bedside, Dr Clay ILNDSEY DC plan: Pending improvement, work up in progress. Plan for bronch poss Tuesday or Tuesday per pulm. Nicole Andersen MD Oct 13, 2017 08:03
--- NOTE | 2017-10-13 08:12 | MB ---
cc: PERLA LARRY DATE OF CONSULTATION 10/12/[address] Emily Merida REASON FOR CONSULTATION Evaluate for COPD and lung infiltrate. HISTORY OF THE PRESENT ILLNESS Ms. Allred is a pleasant 72-year-old female with a history of coronary disease, atrial fibrillation. She had ablation done before. She has a long history of smoking which she quit. She came to the hospital with worsening of her shortness of breath. 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 She has increasing shortness of breath, wheezing. She can barely walk in the room and gets short of breath. Did not have any chest pain. No fever or chills. No night sweats. No weight loss. No hemoptysis. Because of the worsening of her symptoms she came Hospital. IMAGING She had a CTA of the chest done, does not show any pulmonary embolism. It shows reticulonodular infiltrate in both lungs, more so at the left base. LABORATORY DATA CBC showed WBC 14.7, hemoglobin 10.6, hematocrit 32.7, MCV 89, platelet count 202. Sodium 138, potassium 3.9, chloride 108, CO2 18, BUN 28, creatinine 1.31. PAST MEDICAL HISTORY Significant for: 1. A history of coronary artery disease. 2. Atrial fibrillation status post myocardial infarction. 3. Chronic obstructive pulmonary disease. 4. Pancreatitis. 5. Hypothyroidism. 6. Chronic kidney disease. 7. History of cancer of the breast status post lumpectomy, chemotherapy and radiation treatment. 8. History of arthroscopy of the knee. MEDICATIONS She is currently takin. Zithromax 500 mg a day. 2. Coumadin 2 mg a day. 3. Duloxetine 60 mg. 4. Lisinopril 20 milligrams. 5. Cefepime 2 grams q.12h. 6. Levothyroxine 100 micrograms daily. 7. Protonix 20 mg twice a day. 8. Neurontin 600 mg at nighttime. 9. Oxycodone for pain. 10. Soma 350 milligrams q.6h. 11. Valium 2 milligrams twice a day. 12. Metoprolol 25 mg a day. 13. Albuterol Atrovent nebulizer treatment. 14. Robitussin DM cough syrup. ALLERGIES SHE IS ALLERGIC TO DICLOFENAC AND OTHER NSAIDS. SOCIAL HISTORY She is for 50 years. Had a history of smoking for 37 years which she quit. Drinks socially. 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 FAMILY HISTORY She has two children. Her father with heart disease at age 47. She has a strong family history of cancers. Mother with lung cancer. Sister and three uncles of lung cancer. REVIEW OF SYSTEMS She complains of shortness of breath on exertion, walks only short distance. Used to play tennis four months ago. No weight loss. Her has leprosy which he contracted possibly by handling [place] feces and working in the field as a hobby. He is taking treatment at [facility] in [place]. PHYSICAL EXAMINATION GENERAL: A well built, well-nourished female, mild short of breath. VITAL SIGNS: Blood pressure 150/67, heart rate 95, respirations 22, temperature 97.8. HEENT: Examination pupils are equal and reactive to light. Oral mucosa, nasal mucosa normal. NECK: Supple. Jugular venous pulse not raised. CHEST: Air entry equal bilaterally. She has bilateral expiratory rhonchi. CARDIOVASCULAR: S1-S2 normal. ABDOMEN: Soft, nondistended. Bowel sounds are present. EXTREMITIES: No edema. IMPRESSION 1. COPD with exacerbation. 2. Right and left lung reticulonodular infiltrate mostly of the left base concerning for SHALOM. 3. Atrial fibrillation. 4. Coronary artery disease. 5. History of CA of the breast status post lumpectomy, chemotherapy and radiation treatment. PLAN I discussed with the patient and her she will need bronchoscopy. However, her INR is 2.5, I will hold her Coumadin, put her on Lovenox in the meantime and schedule her for bronchoscopy. I will also start her on IV Solu-Medrol 40 milligrams q.6h, Symbicort twice a day. Continue antibiotic. Once she gets better we will check a pulmonary function study. Further treatment will depend on the course in the hospital. Thank you Dr. Emily Merida for this consultation. MD ANU Bejarano/RAHEEL /6:09 PM /7:55 AM MTDRich
[2017-10-13] MEDS: BUDESONIDE-FORMOTEROL 160/4.5 MCG INHALER INH SCH ×2 (08:25→20:51)
[2017-10-13] MEDS: DULoxetine HCl DR 60 MG CAP PO SCH (08:27)
[2017-10-13] MEDS: DILTIAZEM-CD 180 MG CAP ER PO SCH ×2 (08:27→20:50)
[2017-10-13] MEDS: ENOXAPARIN SODIUM 60 MG/0.6 ML SYRINGE SQ SCH ×2 (08:27→20:50)
[2017-10-13] MEDS: PANTOPRAZOLE SOD 20 MG DELAYED RELEASE TAB PO SCH ×2 (08:27→20:51)
[2017-10-13] MEDS: LISINOPRIL 20 MG TAB PO SCH (08:27)
[2017-10-13] MEDS: SODIUM CHLORIDE 0.9% FLUSH 10 ML FLUSH IV FLUSH SCH ×2 (08:28→20:50)
--- NOTE | 2017-10-13 10:50 | MB ---
cc: LILIANA REAGAN M.D. DATE OF CONSULTATION: 10/13/2017 DATE OF 1945 HISTORY OF PRESENT ILLNESS The patient is a 72-year-old female well-known to me, who was admitted with pneumonia unresponsive to outpatient therapy and was found to have elevated liver enzymes. Labs were normal last month. Pneumonia was atypical in appearance radiographically. She was not responding to oral azithromycin and was admitted to the hospital. She is dyspneic and has significant bilateral wheezing. 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 PAST MEDICAL HISTORY 1. Hypertension. 2. Atrial fibrillation. 3. Left breast cancer status post lumpectomy, chemotherapy and radiation therapy. 4. She has chronic kidney disease. 5. Hypothyroidism. 6. History of pneumonia. 7. History of pancreatitis. 8. She has had some hemoccult positive stool, capsule endoscopy revealed a small intestine polyp. She was scheduled to meet with the people at [facility] in [place] for push enteroscopy and resection but this is cancelled because of this recent hospital admission, will have to reschedule that. PAST SURGICAL HISTORY 1. Atrial fibrillation ablation. 2. Cholecystectomy. 3. Hysterectomy. 4. Arthroscopies in the knees. 5. Carpal tunnel surgery. ALLERGIES DICLOFENAC, ETODOLAC, FLURBIPROFEN, IBUPROFEN, INDOMETHACIN, KETOPROFEN, KETOROLAC, NAPROSYN, OXAPROZIN. MEDICATIONS Include: 1. Diltiazem. 2. Z-Kane. 3. Benzonatate. 4. Prednisone. 5. Ventolin. 6. Voltaren topical. 7. Cymbalta. 8. Tranxene. 9. Vicodin. 10. Neurontin. 11. Soma. 12. Metoprolol. 13. Lisinopril. 14. Omeprazole 20 mg b.i.d. 15. Synthroid. 16. Coumadin. FAMILY HISTORY Lung cancer and heart problems. SOCIAL HISTORY No tobacco use since 1998. No alcohol use. REVIEW OF SYSTEMS She has had fatigue. She has had coughing. She has had dyspnea. She has had no weight loss or change in appetite. She has no dysphagia, no odynophagia, no abdominal pain, no bowel irregularities. No nausea or vomiting. No appetite suppression. She has had no chest pains. She has some chronic joint pains. No rashes or joint pains. No recent bruising. No neurologic symptoms. No history of anxiety or depression. No unexplained weight loss. PHYSICAL EXAMINATION VITAL SIGNS: Her weight is 99.1 kilograms. Temperature is 97.1, pulse 82, respiratory rate 22, blood pressure 141/64. GENERAL: She is alert. She is oriented x3. HEENT: She is anicteric. Extraocular motions are intact. I appreciate no submandibular, cervical, supraclavicular, axillary or epitrochlear adenopathy. HEART: Irregular rhythm. No gross murmur or gallop. LUNGS: Lungs sound diffusely wheezy bilaterally, expiratory more than inspiratory. ABDOMEN: Good bowel sounds. No appreciable bruit. The abdomen is soft and nontender. No masses or hepatosplenomegaly are noted. No pedal edema, Dupuytren's contractures or palmar erythema. LABORATORY STUDIES On August 26 liver enzymes are normal. Yesterday sodium was 138, potassium 4.9, BUN 28, creatinine 1.31, iron was 22 with a saturation of 5.6%. AFP tumor marker was 2.7. Today her sodium is 138, potassium 5.4, BUN 33, creatinine 1.53, AST 29, ALT 220, alkaline phosphatase 139, albumin 2.7, bilirubin 0.2. INR was 2.5 yesterday. IMAGING STUDIES I reviewed the CT and ultrasound with Dr. Quintero in radiology. Despite his report of a fatty liver evidenced by ultrasound, the CT scan shows actually less fat in the liver than in the spleen. Liver parenchyma appears fine, there is no biliary ductal dilation. IMPRESSION Elevated liver enzymes. I suspect is related to a medication or to this atypical pneumonia the patient may be experiencing. Liver enzymes were normal a month ago. Serologic studies have been requested. Will check those, although expect them to be normal. I expect the liver enzymes to correct once the infection is controlled and the new medications have all been stopped. I will follow along. Will reschedule her double balloon enteroscopy with small intestine polyp removal for after all of this resolves. MD BETH Schuster/MIN /10:04 AM /10:17 AM MTDRich
[2017-10-13] MEDS: AZITHROMYCIN INJ 500 MG in SODIUM CHLOR 0.9% 250 ML INJ 250 ML IV SCH (17:00)
--- NOTE | 2017-10-13 19:46 | HHI.PR ---
Subjective Remarks 72 YOWF with COPD exac, Bilat infilt Has elevated liver enzymes Persistant cough Wheezing better Objective Vital Signs Vital Signs Date Time Temp Pulse Resp B/P (MAP) Pulse Ox O2 Delivery O2 Flow Rate FiO2 10/13/17 19:31 95 Nasal Cannula 2.00 10/13/17 16:00 98.3 87 22 158/70 (99) 95 10/13/17 12:00 97.7 81 22 147/67 (93) 98 10/13/17 09:31 2.00 10/13/17 09:00 93 Nasal Cannula 2.00 10/13/17 08:00 78 10/13/17 08:00 97.1 82 22 141/64 (89) 96 10/13/17 06:17 96 Nasal Cannula 2.00 10/13/17 04:00 75 10/13/17 04:00 97.6 100 20 148/76 (100) 96 10/13/17 00:00 97.6 83 18 107/64 (78) 96 10/13/17 00:00 81 10/12/17 21:24 96 Nasal Cannula 2.00 10/12/17 20:00 97.3 83 18 139/62 (87) 95 10/12/17 20:00 Nasal Cannula 2.00 10/12/17 20:00 81 I/O 10/12/17 10/12/17 10/12/17 10/13/17 10/13/17 10/13/17 07:00 15:00 23:00 07:00 15:00 23:00 Intake Total 240 ml 480 ml 480 ml 600 ml Output Total 400 ml 500 ml Balance -160 ml -20 ml 480 ml 600 ml Intake Oral 240 ml 480 ml 480 ml 600 ml Output Urine Total 400 ml 500 ml # Voids 3 6 # Bowel Movements 0 1 1 0 Result Diagram: 10/13/1740 10/13/17 0540 Objective Remarks GENERAL: WBWN WF, mild sob SKIN: Warm and dry. HEAD: Normocephalic. EYES: No scleral icterus. No injection or drainage. NECK: Supple, trachea midline. No JVD or lymphadenopathy. CARDIOVASCULAR: Regular rate and rhythm without murmurs, gallops, or rubs. RESPIRATORY: Breath sounds equal bilaterally. No accessory muscle use. Exp rhonchi GASTROINTESTINAL: Abdomen soft, non-tender, nondistended. MUSCULOSKELETAL: No cyanosis, or edema. BACK: Nontender without obvious deformity. No CVA tenderness. A/P Assessment and Plan COPD Exac Bilat reticulonodular infilt, r/o SHALOM AF CAD H/O ca breast PLAN: IV Solumedrol Aerosol nebs Cont Abx Robitussin AC cough syp INR in AM Bronch if INR <1.5 Brice Posada MD Oct 13, 2017 19:46
[2017-10-13] MEDS: GABAPENTIN 300 MG CAP PO SCH (20:50)
[2017-10-13] MEDS: guaiFENesin/CODEINE SYRUP 200 MG/20 MG/10 ML CUP PO PRN (20:51)
[2017-10-13] MEDS ORDERED: POVIDONE IODINE 5% (ANTISEPSIS KIT) 4 APPLICATIONS EACH NARE PRN (23:45)
[2017-10-13] MEDS ORDERED: CHLORHEXIDINE GLUCONATE 2 % 1 PACK (2 CLOTHS) TOPICAL PRN (23:45)
[2017-10-13] MEDS ORDERED: SODIUM CHLORID 0.9% 500 ML IV PRN (23:45)
[2017-10-13] MEDS ORDERED: LACTATED RINGER'S 1000 ML IV PRN (23:45)
[2017-10-14] VITALS (9 sets, daily range): BP systolic 134–157; BP diastolic 61–75; PULSE 82–104; RESP 16–20; TEMP 96.8–98.5; O2SAT 96–100
[2017-10-14] MEDS: guaiFENesin/CODEINE SYRUP 200 MG/20 MG/10 ML CUP PO PRN ×2 (03:36→11:00)
[2017-10-14] MEDS: RESP: ALBUTEROL 2.5 MG/IPRATROPIUM 0.5 MG NEB (PRN) NEB ×3 (03:51→23:41)
[2017-10-14] MEDS: LEVOTHYROXINE SODIUM 100 MCG TAB PO SCH (05:35)
[2017-10-14] MEDS: methylPREDNISolone SOD SUCC 40 MG/1 ML VIAL IV PUSH SCH ×3 (05:35→18:34)
[2017-10-14] MEDS: CEFEPIME INJ 2,000 MG in SODIUM CHLORIDE 0.9% INJ 100 ML IV SCH ×2 (05:35→18:34)
[2017-10-14] MEDS: BUDESONIDE-FORMOTEROL 160/4.5 MCG INHALER INH SCH ×2 (07:39→20:35)
[2017-10-14] MEDS: LISINOPRIL 20 MG TAB PO SCH (07:40)
[2017-10-14] MEDS: DULoxetine HCl DR 60 MG CAP PO SCH (07:40)
[2017-10-14] MEDS: DILTIAZEM-CD 180 MG CAP ER PO SCH ×2 (07:40→20:35)
[2017-10-14] MEDS: PANTOPRAZOLE SOD 20 MG DELAYED RELEASE TAB PO SCH ×2 (07:40→20:35)
[2017-10-14] MEDS: SODIUM CHLORIDE 0.9% FLUSH 10 ML FLUSH IV FLUSH SCH ×2 (07:41→20:35)
[2017-10-14 07:54] LABS: INTERNATIONAL NORMALIZED RATIO 2.7 RATIO; PROTHROMBIN TIME - PATIENT 27.4 SEC (9.8-11.6)
[2017-10-14 07:57] LABS: AUTOMATED NEUTROPHIL # 9.6 TH/MM3 (1.8-7.7); BASOPHIL % 0.1 % (0.0-2.0); HEMO FLAGS DIFF FINAL; LYMPH % 2.1 % (9.0-44.0); LYMPHOCYTE # 0.2 TH/MM3 (1.0-4.8); MEAN CELL VOLUME 90.7 FL (80.0-100.0); MEAN CORPUSCULAR HEMOGLOBIN 29.5 PG (27.0-34.0); MEAN CORPUSCULAR HGB CONC 32.5 % (32.0-36.0); MONO % 3.6 % (0.0-8.0); NEUT % 94.2 % (16.0-70.0); PLATELET COUNT 190 TH/MM3 (150-450); RED BLOOD COUNT 3.53 MIL/MM3 (4.00-5.30); RED CELL DISTRIBUTION WIDTH 17.9 % (11.6-17.2); WHITE BLOOD COUNT 10.2 TH/MM3 (4.0-11.0)
[2017-10-14 08:12] LABS: ALT (GPT) 188 U/L (10-53); ANION GAP 10 MEQ/L (5-15); AST (GOT) 63 U/L (15-37); BICARBONATE 19.5 MEQ/L (21.0-32.0); BLOOD UREA NITROGEN 27 MG/DL (7-18); CHLORIDE 107 MEQ/L (98-107); GLOMERULAR FILTRATION RATE 44 ML/MIN (>89); POTASSIUM 4.7 MEQ/L (3.5-5.1); SODIUM (NA) 136 MEQ/L (136-145)
[2017-10-14 08:21] LABS: ALKALINE PHOSPHATASE 115 U/L (45-117); TOTAL BILIRUBIN ADULT 0.3 MG/DL (0.2-1.0)
--- NOTE | 2017-10-14 08:41 | HHI.PR ---
Subjective Remarks Says she has persistent cough male with yellow sputum and she has pain in her chest when she coughs. Denies fever or chills. No nausea or vomiting no diarrhea or constipation at this time. Objective Vitals Vital Signs Date Time Temp Pulse Resp B/P (MAP) Pulse Ox O2 Delivery O2 Flow Rate FiO2 10/14/17 07:43 98 Nasal Cannula 2.00 10/14/17 04:00 82 10/14/17 04:00 98.1 86 20 134/61 (85) 97 10/14/17 00:00 90 10/14/17 00:00 96.8 104 20 138/75 (96) 99 10/13/17 20:00 85 10/13/17 20:00 97.3 85 20 133/59 (83) 99 10/13/17 20:00 Nasal Cannula 2.00 10/13/17 19:31 95 Nasal Cannula 2.00 10/13/17 16:00 98.3 87 22 158/70 (99) 95 10/13/17 12:00 97.7 81 22 147/67 (93) 98 10/13/17 09:31 2.00 10/13/17 09:00 93 Nasal Cannula 2.00 I/O 10/13/17 10/13/17 10/13/17 10/14/17 10/14/17 10/14/17 07:00 15:00 23:00 07:00 15:00 23:00 Intake Total 480 ml 600 ml 100 ml Balance 480 ml 600 ml 100 ml Intake Oral 480 ml 600 ml IV Total 100 ml # Voids 3 6 10 # Bowel Movements 1 0 0 Result Diagram: 10/14/17 0650 10/14/17 0650 Imaging Last Impressions Liver Ultrasound 10/12/17 0000 Signed Impressions: Service Date/Time: Thursday, October 12, 2017 08:51 - CONCLUSION: Hepatic steatosis. Prior cholecystectomy. Atrophic right kidney. Cuong Quintero Jr., MD CT Angiography 10/11/17 1415 Signed Impressions: Service Date/Time: Wednesday, October 11, 2017 15:00 - CONCLUSION: 1. No pulmonary embolus. 2. However, there is a reticulonodular pattern in both lower lobes, left greater than right with areas characteristic of a tree in bud pattern suggesting atypical infection such as SHALOM. 3. Nodular like area is predominantly an interstitial process in a deshaun-fissural distribution posteriorly in the right upper lobe and probably postinflammatory. I would recommend a followup noncontrasted CT scan of the chest in 3 months to ensure stability/resolution, Jacinto Pack MD Chest X-Ray 10/11/17 0000 Signed Impressions: Service Date/Time: Wednesday, October 11, 2017 22:32 - CONCLUSION: 1. Mild basilar airspace disease, left greater than right. Differential diagnosis includes a mild bronchopneumonia. No effusion or pneumothorax. James Harrison MD Objective Remarks GENERAL: This is a well-nourished, well-developed patient, in mild distress from cough and wheezing CARDIOVASCULAR: Regular rate and rhythm without murmurs, gallops, or rubs. RESPIRATORY: bilateral inspiratory and expiratory wheezing GASTROINTESTINAL: Abdomen soft, non-tender, nondistended. No guarding. MUSCULOSKELETAL: Extremities without clubbing, cyanosis. No calf tenderness. Bilateral mild pitting edema at the ankles. NEUROLOGICAL: Awake and alert. Motor and sensory grossly within normal limits. Normal speech. A/P Assessment and Plan Pneumonia. Failed outpatient. Possibly atypical. With history of recent leprosy treatment for her . No active lesions on her skin or husbands. Remove isolation per ID specialist Follow recommendations by infectious disease specialist. Continue IV abx Azithromycin/cefepime. Cultures including sputum cultures/AFB cultures/blood cultures pending. Pulm ff. ID specialist recommends bronchoscopy. Plan for bronch poss Tuesday or Tuesday per pulm. Resumed home medications, monitor. Symptomatic treatment of cough with Robitussin/codeine. Nebulizers when necessary. Will hold off on prednisone at this point. Only if patient is severely tight/ wheezing, we'll consider steroid therapy. Acute transaminitis. Monitor LFTs DC norco- use oxycodone on its own Liver US noted, hepatitis profile pending GI consult for further eval- suspects meds induced AFP level, ROSALEE, AMA, ASMA, Hepatitis profile, Ferritin, Iron saturation, Ceruloplasmin, Alpha 1 Antitrypsin Monitor LFTs Discussed with Dr Clay LINDSEY. Likely findings related to infection and medications. 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 Planned for removal at [facility] next week. DVT prophylaxis on Coumadin. GI prophylaxis on pantoprazole. Discussed Condition With Patient, nurse, at bedside, Dr Clay LINDSEY DC plan: Pending improvement, work up in progress. Plan for bronch poss on Tuesday per pulm as patient with elevated INR Nicole Andersen MD Oct 14, 2017 08:40
[2017-10-14] MEDS: CARISOPRODOL 350 MG TAB PO PRN ×2 (09:03→20:35)
--- NOTE | 2017-10-14 16:37 | HHI.GIFU ---
GI Follow-up Note Consult Follow-up Subjective: Patient laying in bed comfortably, no new complaints except continued dyspnea and coughing. 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 Available Data (labs, X- Rays, Procedues) : Liver enzymes improving; serologies/ special studies either normal or still pending. ASSESSMENT/PLAN:Elevated liver enzymes; improving. Still waiting for identification of organism causing the pneumonia. Will follow. It was a pleasure seeing Anila Allred. Entered by: Kvng Guerra MD Oct 14, 2017 16:37
[2017-10-14] MEDS: guaiFENesin/DEXTROMETHORPHAN 200 MG/20 MG/10 ML CUP PO PRN ×2 (18:33→22:35)
--- NOTE | 2017-10-14 18:39 | HHI.PR ---
Subjective Remarks 72 YOWF with COPD exac, Bilat infilt Has elevated liver enzymes Persistant cough Wheezing better Bronch was cancelled due to increased INR Objective Vital Signs Vital Signs Date Time Temp Pulse Resp B/P (MAP) Pulse Ox O2 Delivery O2 Flow Rate FiO2 10/14/17 16:02 98.1 89 16 144/64 (90) 97 10/14/17 12:01 98.5 94 16 152/65 (94) 100 10/14/17 10:03 18 10/14/17 08:02 98.3 87 16 143/66 (91) 98 10/14/17 08:00 Nasal Cannula 2.00 10/14/17 07:43 98 Nasal Cannula 2.00 10/14/17 04:00 82 10/14/17 04:00 98.1 86 20 134/61 (85) 97 10/14/17 00:00 90 10/14/17 00:00 96.8 104 20 138/75 (96) 99 10/13/17 20:00 85 10/13/17 20:00 97.3 85 20 133/59 (83) 99 10/13/17 20:00 Nasal Cannula 2.00 10/13/17 19:31 95 Nasal Cannula 2.00 I/O 10/13/17 10/13/17 10/13/17 10/14/17 10/14/17 10/14/17 07:00 15:00 23:00 07:00 15:00 23:00 Intake Total 480 ml 600 ml 100 ml 380 ml Balance 480 ml 600 ml 100 ml 380 ml Intake Oral 480 ml 600 ml 380 ml IV Total 100 ml # Voids 3 6 10 4 # Bowel Movements 1 0 0 0 Result Diagram: 10/14/17 0650 10/14/17 0650 Objective Remarks GENERAL: WBWN WF, mild sob SKIN: Warm and dry. HEAD: Normocephalic. EYES: No scleral icterus. No injection or drainage. NECK: Supple, trachea midline. No JVD or lymphadenopathy. CARDIOVASCULAR: Regular rate and rhythm without murmurs, gallops, or rubs. RESPIRATORY: Breath sounds equal bilaterally. No accessory muscle use. Exp rhonchi GASTROINTESTINAL: Abdomen soft, non-tender, nondistended. MUSCULOSKELETAL: No cyanosis, or edema. BACK: Nontender without obvious deformity. No CVA tenderness. A/P Assessment and Plan COPD Exac Bilat reticulonodular infilt, r/o SHALOM AF CAD H/O ca breast PLAN: IV Solumedrol Aerosol nebs Cont Abx Robitussin AC cough syp Bronch if INR <1.5 Bronch salomon for Tuesday Brice Posada MD Oct 14, 2017 18:39
[2017-10-14] MEDS: AZITHROMYCIN INJ 500 MG in SODIUM CHLOR 0.9% 250 ML INJ 250 ML IV SCH (18:42)
--- NOTE | 2017-10-14 19:26 | HHI.IDPN ---
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 Patient reports that she was a smoker but quit in 1998 but she had smoked for approximately 34+ years. Patient reports she has had progressive shortness of breath for the last 3-4 months but this was being attributed to her cardiac issues she has never seen a records management engineer and never been formally diagnosed with COPD. Patient denies any prior history of pneumonia. Patient reports that she recently saw a cardiothoracic surgeon for consideration for cardiac ablation but was told that other than tachycardia she did not meet criteria for ablation. Her Cardizem dose was recently increased. Patient reports that over the last 3 months she has had tightness in her chest, shortness of breath which has progressively worsened to where she cannot performed her daily activities and gets short of breath on minimal exertion from going from one room to the other. Patient reports being an avid traveler and has traveled extensively. Her most recent visit was in the [facility] in [place] but she also has had a visit in [place] in the recent past. She denies any exposure to patients or people with known tuberculosis. She does mention that her was recently diagnosed with mycobacterium leprae and has been on treatment for leprosy for last 7 months. reports being on multiple drug therapy and following up with [facility] in [place]. He goes on to report this Mycobacterium A was diagnosed based on a skin biopsy when he had numbness and skin changes in his left elbow. 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 He is deemed as non contagious at this point and is compliant with meds and follow ups. Her past medical history is also significant for history of left breast cancer, s/p lumpectomy, radiation, chemotherapy in 2014. She reports she is in remission and cancer free for the last 2 years. She does not have a port in place. With this background patient presents to the emergency room for evaluation of worsening shortness of breath. She initially presented to the emergency department for evaluation of shortness of breath but was discharged from the emergency room on prednisone and Zithromax. She was admitted for pneumonia, failed outpatient. Patient was noted to have elevated LFTs with AST 82, ALT 385 , alkaline phosphatase 155 and GI was consulted. An ultrasound of the liver was done which shows fatty liver. Patient reports that she had positive stool test for blood and therefore underwent workup for anemia as well as EGD, colonoscopy followed by capsule endoscopy. She reports that her capsule endoscopy was positive and that she was supposed to have a procedure done as outpatient for this but unfortunately got admitted prior to that. She denies any nausea, vomiting, abdominal pain. She has not had any changes in her appetite and has not lost any weight. She has not had any changes in her bowel habits. She denies any known history of any liver disease. She is status post cholecystectomy. She only rarely drinks alcohol. Infectious disease is consulted for evaluation and management of pneumonia in a patient with suspected SHALOM. Overnight events reviewed No fevers No rash Still complains of shortness of breath but improved since Pulm changed meds. Pulm plans on bronch but waiting on INR to be in acceptable range. Possibly on Tuesday per records. No diarrhea Antibiotics Cefepime IV Azithro IV Lines Line sites with no e.o infection Past Medical History reviewed Allergies: Coded Allergies: diclofenac (Verified Allergy, Severe, 10/11/17) "EFFECTS KIDNEY FUNCTION" etodolac (Verified Allergy, Severe, 10/11/17) "EFFECTS KIDNEY FUNCTION" flurbiprofen (Verified Allergy, Severe, 10/11/17) "EFFECTS KIDNEY FUNCTION" ibuprofen (Verified Allergy, Severe, 10/11/17) "EFFECTS KIDNEY FUNCTION" indomethacin (Verified Allergy, Severe, 10/11/17) "EFFECTS KIDNEY FUNCTION" ketoprofen (Verified Allergy, Severe, 10/11/17) "EFFECTS KIDNEY FUNCTION" ketorolac (Verified Allergy, Severe, 10/11/17) "EFFECTS KIDNEY FUNCTION" naproxen (Verified Allergy, Severe, 10/11/17) "EFFECTS KIDNEY FUNCTION" oxaprozin (Verified Allergy, Severe, 10/11/17) "EFFECTS KIDNEY FUNCTION" Objective . Vital Signs Date Time Temp Pulse Resp B/P (MAP) Pulse Ox O2 Delivery O2 Flow Rate FiO2 10/14/17 16:02 98.1 89 16 144/64 (90) 97 10/14/17 12:01 98.5 94 16 152/65 (94) 100 10/14/17 10:03 18 10/14/17 08:02 98.3 87 16 143/66 (91) 98 10/14/17 08:00 Nasal Cannula 2.00 10/14/17 07:43 98 Nasal Cannula 2.00 10/14/17 04:00 82 10/14/17 04:00 98.1 86 20 134/61 (85) 97 10/14/17 00:00 90 10/14/17 00:00 96.8 104 20 138/75 (96) 99 10/13/17 20:00 85 10/13/17 20:00 97.3 85 20 133/59 (83) 99 10/13/17 20:00 Nasal Cannula 2.00 10/13/17 19:31 95 Nasal Cannula 2.00 10/14/17 10/14/17 10/15/17 15:00 23:00 07:00 Intake Total 480 ml Balance 480 ml Intake Oral 380 ml IV Total 100 ml # Voids 4 # Bowel Movements 0 . Laboratory Tests Test 10/13/17 05:40 10/14/17 06:50 White Blood Count 12.8 TH/MM3 10.2 TH/MM3 Red Blood Count 3.62 MIL/MM3 3.53 MIL/MM3 Hemoglobin 10.6 GM/DL 10.4 GM/DL Hematocrit 32.8 % 32.0 % Mean Corpuscular Volume 90.5 FL 90.7 FL Mean Corpuscular Hemoglobin 29.3 PG 29.5 PG Mean Corpuscular Hemoglobin Concent 32.4 % 32.5 % Red Cell Distribution Width 18.6 % 17.9 % Platelet Count 204 TH/MM3 190 TH/MM3 Mean Platelet Volume 8.7 FL 8.5 FL Neutrophils (%) (Auto) 95.2 % 94.2 % Lymphocytes (%) (Auto) 2.5 % 2.1 % Monocytes (%) (Auto) 2.3 % 3.6 % Eosinophils (%) (Auto) 0.0 % 0.0 % Basophils (%) (Auto) 0.0 % 0.1 % Neutrophils # (Auto) 12.2 TH/MM3 9.6 TH/MM3 Lymphocytes # (Auto) 0.3 TH/MM3 0.2 TH/MM3 Monocytes # (Auto) 0.3 TH/MM3 0.4 TH/MM3 Eosinophils # (Auto) 0.0 TH/MM3 0.0 TH/MM3 Basophils # (Auto) 0.0 TH/MM3 0.0 TH/MM3 CBC Comment DIFF FINAL DIFF FINAL Differential Comment Laboratory Tests Test 10/13/17 05:40 10/14/17 06:50 Blood Urea Nitrogen 33 MG/DL 27 MG/DL Creatinine 1.53 MG/DL 1.20 MG/DL Random Glucose 145 MG/DL 147 MG/DL Total Protein 7.1 GM/DL 6.6 GM/DL Albumin 2.7 GM/DL 2.6 GM/DL Calcium Level 9.6 MG/DL 9.1 MG/DL Alkaline Phosphatase 139 U/L 115 U/L Aspartate Amino Transf (AST/SGOT) 29 U/L 63 U/L Alanine Aminotransferase (ALT/SGPT) 220 U/L 188 U/L Total Bilirubin 0.2 MG/DL 0.3 MG/DL Sodium Level 138 MEQ/L 136 MEQ/L Potassium Level 5.4 MEQ/L 4.7 MEQ/L Chloride Level 109 MEQ/L 107 MEQ/L Carbon Dioxide Level 20.1 MEQ/L 19.5 MEQ/L Anion Gap 9 MEQ/L 10 MEQ/L Estimat Glomerular Filtration Rate 33 ML/MIN 44 ML/MIN Microbiology Date/Time Source Procedure Growth Status 10/12/17 08:19 Blood Line Mycobacterial Culture Pending Received 10/12/17 05:45 Sputum Expectorated Sputum Acid Fast Stain - Final NO ACID FAST BACILLI SEEN Resulted 10/12/17 05:45 Sputum Expectorated Sputum Mycobacterial Culture Pending Resulted 10/12/17 05:45 Sputum Expectorated Sputum Gram Stain - Final Complete 10/12/17 05:45 Sputum Expectorated Sputum Sputum Culture - Final HEAVY GROWTH NORMAL RESPIRATORY HANS Complete 10/11/17 20:00 Urine Clean Catch Legionella Antigen - Final PRESUMPTIVE NEGATIVE FOR LEGIONELLA P... Complete Imaging Last Impressions Liver Ultrasound 10/12/17 0000 Signed Impressions: Service Date/Time: Thursday, October 12, 2017 08:51 - CONCLUSION: Hepatic steatosis. Prior cholecystectomy. Atrophic right kidney. Cuong Quintero Jr., MD CT Angiography 10/11/17 1415 Signed Impressions: Service Date/Time: Wednesday, October 11, 2017 15:00 - CONCLUSION: 1. No pulmonary embolus. 2. However, there is a reticulonodular pattern in both lower lobes, left greater than right with areas characteristic of a tree in bud pattern suggesting atypical infection such as SHALOM. 3. Nodular like area is predominantly an interstitial process in a deshaun-fissural distribution posteriorly in the right upper lobe and probably postinflammatory. I would recommend a followup noncontrasted CT scan of the chest in 3 months to ensure stability/resolution, Jacinto Pack MD Chest X-Ray 10/11/17 0000 Signed Impressions: Service Date/Time: Wednesday, October 11, 2017 22:32 - CONCLUSION: 1. Mild basilar airspace disease, left greater than right. Differential diagnosis includes a mild bronchopneumonia. No effusion or pneumothorax. James Harrison MD Physical Exam GENERAL: This is a well-nourished, well-developed patient, in no apparent distress. SKIN: No rashes, ecchymoses or lesions. Cool and dry. HEAD: Atraumatic. Normocephalic. No temporal or scalp tenderness. EYES: Pupils equal round and reactive. Extraocular motions intact. No scleral icterus. No injection or drainage. ENT: Nose without bleeding, purulent drainage or septal hematoma. Throat without erythema, tonsillar hypertrophy or exudate. Uvula midline. Airway patent. NECK: Trachea midline. Supple, nontender, no meningeal signs. CARDIOVASCULAR: HS audible. RESPIRATORY: Wheezing bilaterally. Breath sounds equal bilaterally. GASTROINTESTINAL: Abdomen soft, non-tender, nondistended. Obese. MUSCULOSKELETAL: Extremities without clubbing, cyanosis, or edema. No joint tenderness, effusion, or edema noted. No calf tenderness. Negative Homans sign bilaterally. NEUROLOGICAL: Awake and alert. Non focal exam. Psych cooperative IV line sites with no e.o infection Assessment & Plan Remarks Pneumonia ? early CAP vs atypical Tree in bud appearance on CT chest ? SHALOM COPD with acute exacerbation. CAD with Atrial fibrillation s/p ablation h/o GERD h/o Anemia s/p capsule endoscopy ? small intestine bleeder per pt description Recs Continue Cefepime IV Continue Azithro Update provided to patient. Follow cultures Follow clinically. Will follow next on Tuesday if any changes in interim pls call who is covering for me. Emily Merida MD Oct 14, 2017 19:26
[2017-10-14] MEDS: ACETAMINOPHEN/CODEINE 300 MG/30 MG TAB PO PRN ×2 (19:39→23:09)
[2017-10-14] MEDS: GABAPENTIN 300 MG CAP PO SCH (20:35)
[2017-10-15] VITALS (14 sets, daily range): BP systolic 130–158; BP diastolic 62–74; PULSE 80–99; RESP 16–18; TEMP 97.6–98.9; O2SAT 96–100
[2017-10-15] MEDS: ACETAMINOPHEN/CODEINE 300 MG/30 MG TAB PO PRN ×4 (03:02→17:02)
[2017-10-15] MEDS: guaiFENesin/DEXTROMETHORPHAN 200 MG/20 MG/10 ML CUP PO PRN ×5 (03:02→21:02)
[2017-10-15 03:50] LABS: IGA SERUM 92 mg/dL (81-463)
[2017-10-15] MEDS: RESP: ALBUTEROL 2.5 MG/IPRATROPIUM 0.5 MG NEB (PRN) NEB ×3 (05:52→21:08)
[2017-10-15] MEDS: LEVOTHYROXINE SODIUM 100 MCG TAB PO SCH (06:17)
[2017-10-15] MEDS: CEFEPIME INJ 2,000 MG in SODIUM CHLORIDE 0.9% INJ 100 ML IV SCH ×2 (06:17→17:07)
[2017-10-15] MEDS: methylPREDNISolone SOD SUCC 40 MG/1 ML VIAL IV PUSH SCH ×5 (06:17→23:06)
[2017-10-15 07:30] LABS: AUTOMATED NEUTROPHIL # 10.4 TH/MM3 (1.8-7.7); BASOPHIL # 0.1 TH/MM3 (0-0.2); BASOPHIL % 0.5 % (0.0-2.0); EOSINOPHIL # 0.2 TH/MM3 (0-0.4); EOSINOPHIL % 1.5 % (0.0-4.0); HEMATOCRIT 29.9 % (35.0-46.0); LYMPH % 2.1 % (9.0-44.0); LYMPHOCYTE # 0.2 TH/MM3 (1.0-4.8); MEAN CELL VOLUME 89.6 FL (80.0-100.0); MEAN CORPUSCULAR HEMOGLOBIN 28.8 PG (27.0-34.0); MEAN CORPUSCULAR HGB CONC 32.1 % (32.0-36.0); MONO % 3.8 % (0.0-8.0); NEUT % 92.1 % (16.0-70.0); PLATELET COUNT 216 TH/MM3 (150-450); RED BLOOD COUNT 3.34 MIL/MM3 (4.00-5.30); RED CELL DISTRIBUTION WIDTH 17.9 % (11.6-17.2); WHITE BLOOD COUNT 11.3 TH/MM3 (4.0-11.0)
[2017-10-15 07:34] LABS: HEMO FLAGS AUTO DIFF
[2017-10-15 07:43] LABS: INTERNATIONAL NORMALIZED RATIO 2.1 RATIO; PROTHROMBIN TIME - PATIENT 21.7 SEC (9.8-11.6)
[2017-10-15 07:54] LABS: ALT (GPT) 232 U/L (10-53); ANION GAP 6 MEQ/L (5-15); AST (GOT) 146 U/L (15-37); BICARBONATE 22.1 MEQ/L (21.0-32.0); BLOOD UREA NITROGEN 28 MG/DL (7-18); CHLORIDE 105 MEQ/L (98-107); GLOMERULAR FILTRATION RATE 46 ML/MIN (>89); POTASSIUM 4.6 MEQ/L (3.5-5.1); SODIUM (NA) 133 MEQ/L (136-145)
[2017-10-15 07:57] LABS: ALKALINE PHOSPHATASE 119 U/L (45-117); TOTAL BILIRUBIN ADULT 0.4 MG/DL (0.2-1.0)
--- NOTE | 2017-10-15 07:57 | HHI.PR ---
Subjective Remarks Patient in nad. No fever or chills. Still with persistent cough , was able to sleep overnight for the first time. Feels improving some. No n/v/d/c. Objective Vitals Vital Signs Date Time Temp Pulse Resp B/P (MAP) Pulse Ox O2 Delivery O2 Flow Rate FiO2 10/15/17 07:25 97 Nasal Cannula 3.00 10/15/17 04:00 80 10/15/17 04:00 97.9 91 16 158/74 (102) 100 10/15/17 00:02 89 10/15/17 00:00 98.0 94 18 156/72 (100) 100 10/14/17 23:45 99 Nasal Cannula 3.00 10/14/17 20:43 Nasal Cannula 3.00 10/14/17 20:00 98.3 86 16 157/70 (99) 96 10/14/17 19:46 86 10/14/17 16:02 98.1 89 16 144/64 (90) 97 10/14/17 12:01 98.5 94 16 152/65 (94) 100 10/14/17 10:03 18 10/14/17 08:02 98.3 87 16 143/66 (91) 98 10/14/17 08:00 Nasal Cannula 2.00 I/O 10/14/17 10/14/17 10/14/17 10/15/17 10/15/17 10/15/17 07:00 15:00 23:00 07:00 15:00 23:00 Intake Total 100 ml 480 ml Balance 100 ml 480 ml Intake Oral 380 ml IV Total 100 ml 100 ml # Voids 10 4 # Bowel Movements 0 0 Result Diagram: 10/15/17 0520 10/15/17 0520 Imaging Last Impressions Liver Ultrasound 10/12/17 0000 Signed Impressions: Service Date/Time: Thursday, October 12, 2017 08:51 - CONCLUSION: Hepatic steatosis. Prior cholecystectomy. Atrophic right kidney. Cuong Quintero Jr., MD CT Angiography 10/11/17 1415 Signed Impressions: Service Date/Time: Wednesday, October 11, 2017 15:00 - CONCLUSION: 1. No pulmonary embolus. 2. However, there is a reticulonodular pattern in both lower lobes, left greater than right with areas characteristic of a tree in bud pattern suggesting atypical infection such as SHALOM. 3. Nodular like area is predominantly an interstitial process in a deshaun-fissural distribution posteriorly in the right upper lobe and probably postinflammatory. I would recommend a followup noncontrasted CT scan of the chest in 3 months to ensure stability/resolution, Jacinto Pack MD Chest X-Ray 10/11/17 0000 Signed Impressions: Service Date/Time: Wednesday, October 11, 2017 22:32 - CONCLUSION: 1. Mild basilar airspace disease, left greater than right. Differential diagnosis includes a mild bronchopneumonia. No effusion or pneumothorax. James Harrison MD Objective Remarks GENERAL: This is a well-nourished, well-developed patient, in mild distress from cough and wheezing CARDIOVASCULAR: Regular rate and rhythm without murmurs, gallops, or rubs. RESPIRATORY: bilateral inspiratory and expiratory wheezing GASTROINTESTINAL: Abdomen soft, non-tender, nondistended. No guarding. MUSCULOSKELETAL: Extremities without clubbing, cyanosis. No calf tenderness. Bilateral mild pitting edema at the ankles. NEUROLOGICAL: Awake and alert. Motor and sensory grossly within normal limits. Normal speech. A/P Assessment and Plan Pneumonia. Failed outpatient. Possibly atypical. With history of recent leprosy treatment for her . No active lesions on her skin or husbands. Remove isolation per ID specialist Follow recommendations by infectious disease specialist. Continue IV abx Azithromycin/cefepime. Cultures including sputum cultures/AFB cultures/blood cultures pending. Pulm ff. ID specialist recommends bronchoscopy. Plan for bronch Wednesday 10/17 per pulm. Resumed home medications, monitor. Symptomatic treatment of cough with Robitussin/codeine. Nebulizers when necessary. Will hold off on prednisone at this point. Only if patient is severely tight/ wheezing, we'll consider steroid therapy. Acute transaminitis. Monitor LFTs DC norco- use oxycodone on its own Liver US noted, hepatitis profile pending GI consult for further eval- suspects meds induced AFP level, ROSALEE, AMA, ASMA, Hepatitis profile, Ferritin, Iron saturation, Ceruloplasmin, Alpha 1 Antitrypsin Monitor LFTs Discussed with Dr Clay LINDSEY. Likely findings related to infection and medications. 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 Planned for removal at [facility] next week. DVT prophylaxis on Coumadin. GI prophylaxis on pantoprazole. Discussed Condition With Patient, nurse, at bedside, Dr Clay LINDSEY DC plan: Pending improvement, work up in progress. Plan for bronch on Wednesday 10/17 per pulm as patient with elevated INR Nicole Andersen MD Oct 15, 2017 07:57
[2017-10-15] MEDS: ENOXAPARIN SODIUM 60 MG/0.6 ML SYRINGE SQ SCH (08:00)
[2017-10-15] MEDS: DULoxetine HCl DR 60 MG CAP PO SCH (08:32)
[2017-10-15] MEDS: LISINOPRIL 20 MG TAB PO SCH (08:32)
[2017-10-15] MEDS: PANTOPRAZOLE SOD 20 MG DELAYED RELEASE TAB PO SCH ×2 (08:32→21:02)
[2017-10-15] MEDS: DILTIAZEM-CD 180 MG CAP ER PO SCH ×2 (08:32→21:02)
[2017-10-15] MEDS: SODIUM CHLORIDE 0.9% FLUSH 10 ML FLUSH IV FLUSH SCH ×2 (08:37→21:03)
[2017-10-15] MEDS: BUDESONIDE-FORMOTEROL 160/4.5 MCG INHALER INH SCH ×2 (08:37→21:03)
[2017-10-15 09:26] LABS: SCAN/DIFF AUTO DIFF CONFIRMED
[2017-10-15 15:53] LABS: ENDOMYSIAL AB TITER ND (<1:5); TISSUE TRANSGLUTAMINASE AB LESS THAN 1 U/mL (0-4)
[2017-10-15] MEDS: AZITHROMYCIN INJ 500 MG in SODIUM CHLOR 0.9% 250 ML INJ 250 ML IV SCH (16:07)
[2017-10-15] MEDS: CARISOPRODOL 350 MG TAB PO PRN ×2 (16:07→21:02)
[2017-10-15] MEDS: GABAPENTIN 300 MG CAP PO SCH (21:02)
[2017-10-15] MEDS: SODIUM CHLORIDE 0.9% FLUSH 10 ML FLUSH IV FLUSH PRN (23:06)
[2017-10-16] VITALS (10 sets, daily range): BP systolic 141–160; BP diastolic 34–73; PULSE 88–103; RESP 18–20; TEMP 97.8–98.6; O2SAT 93–98
[2017-10-16 03:50] LABS: MITOCHONDRIAL ABS LESS THAN 20.0 U (<=20.0)
[2017-10-16] MEDS: guaiFENesin/DEXTROMETHORPHAN 200 MG/20 MG/10 ML CUP PO PRN ×4 (06:02→21:09)
[2017-10-16] MEDS: LEVOTHYROXINE SODIUM 100 MCG TAB PO SCH (06:02)
[2017-10-16] MEDS: CARISOPRODOL 350 MG TAB PO PRN ×3 (06:02→21:09)
[2017-10-16] MEDS: methylPREDNISolone SOD SUCC 40 MG/1 ML VIAL IV PUSH SCH ×4 (06:02→23:00)
[2017-10-16] MEDS: CEFEPIME INJ 2,000 MG in SODIUM CHLORIDE 0.9% INJ 100 ML IV SCH ×3 (06:03→21:11)
[2017-10-16] MEDS: ACETAMINOPHEN/CODEINE 300 MG/30 MG TAB PO PRN ×3 (06:11→15:04)
[2017-10-16] MEDS: RESP: ALBUTEROL 2.5 MG/IPRATROPIUM 0.5 MG NEB (PRN) NEB ×2 (06:59→15:37)
[2017-10-16 08:20] LABS: ALT (GPT) 206 U/L (10-53); ANION GAP 9 MEQ/L (5-15); AST (GOT) 94 U/L (15-37); BICARBONATE 22.2 MEQ/L (21.0-32.0); CHLORIDE 101 MEQ/L (98-107); GLOMERULAR FILTRATION RATE 53 ML/MIN (>89); SODIUM (NA) 132 MEQ/L (136-145)
[2017-10-16 08:23] LABS: ALKALINE PHOSPHATASE 104 U/L (45-117); TOTAL BILIRUBIN ADULT 0.5 MG/DL (0.2-1.0)
[2017-10-16 09:10] LABS: BLOOD UREA NITROGEN 22 MG/DL (7-18); POTASSIUM 4.6 MEQ/L (3.5-5.1)
[2017-10-16] MEDS: DILTIAZEM-CD 180 MG CAP ER PO SCH ×2 (09:30→21:09)
[2017-10-16] MEDS: LISINOPRIL 20 MG TAB PO SCH (09:30)
[2017-10-16] MEDS: SODIUM CHLORIDE 0.9% FLUSH 10 ML FLUSH IV FLUSH SCH ×2 (09:31→21:10)
[2017-10-16] MEDS: PANTOPRAZOLE SOD 20 MG DELAYED RELEASE TAB PO SCH ×2 (09:31→21:09)
[2017-10-16] MEDS: DULoxetine HCl DR 60 MG CAP PO SCH (09:31)
[2017-10-16] MEDS: BUDESONIDE-FORMOTEROL 160/4.5 MCG INHALER INH SCH ×2 (09:32→21:10)
--- NOTE | 2017-10-16 11:37 | HHI.GIFU ---
GI Follow-up Note Consult Follow-up Subjective: Patient sitting up in chair. Her coughing has improved. No new complaints. 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 Available Data (labs, X- Rays, Procedues) : Liver enzymes continue to improve, slowly. Liver labs all unremarkable. ASSESSMENT/PLAN: Elevated liver enzymes, still related to infection vs medication side effect. She's to undergo bronchoscopy tomorrow to try to identify the infection. It was a pleasure seeing Allred,Anila García. Entered by: Kvng Guerra MD Oct 16, 2017 11:37
--- NOTE | 2017-10-16 12:46 | HHI.PR ---
Subjective Remarks Patient in the chair appears improved today. Still with persistent cough, and she is coughing blood at times anticoagulation is on hold. No fever or chills. No n/v/d/c. Objective Vitals Vital Signs Date Time Temp Pulse Resp B/P (MAP) Pulse Ox O2 Delivery O2 Flow Rate FiO2 10/16/17 12:00 97.8 91 20 160/70 (100) 97 10/16/17 08:00 98.4 92 18 152/72 (98) 98 10/16/17 07:11 18 10/16/17 07:02 16 10/16/17 07:00 Nasal Cannula 2.00 10/16/17 04:00 89 10/16/17 04:00 98.2 98 20 141/67 (91) 95 10/16/17 00:00 Nasal Cannula 2.00 10/16/17 00:00 98.1 89 20 152/73 (99) 96 10/15/17 23:58 99 10/15/17 23:05 Nasal Cannula 2.00 Humidified 10/15/17 22:00 Nasal Cannula 2.00 10/15/17 21:10 98 Nasal Cannula 2.00 10/15/17 20:00 Nasal Cannula 3.00 Humidified 10/15/17 20:00 98.9 98 18 139/65 (89) 96 10/15/17 19:47 94 10/15/17 16:22 86 10/15/17 16:02 97.6 91 17 130/62 (84) 99 I/O 10/15/17 10/15/17 10/15/17 10/16/17 10/16/17 10/16/17 07:00 15:00 23:00 07:00 15:00 23:00 Intake Total 770 ml 240 ml Balance 770 ml 240 ml Intake Oral 420 ml 240 ml IV Total 350 ml # Voids 5 2 # Bowel Movements 1 0 Result Diagram: 10/15/17 0520 10/16/17 0645 Imaging Last Impressions Liver Ultrasound 10/12/17 0000 Signed Impressions: Service Date/Time: Thursday, October 12, 2017 08:51 - CONCLUSION: Hepatic steatosis. Prior cholecystectomy. Atrophic right kidney. Cuong Quintero Jr., MD CT Angiography 10/11/17 1415 Signed Impressions: Service Date/Time: Wednesday, October 11, 2017 15:00 - CONCLUSION: 1. No pulmonary embolus. 2. However, there is a reticulonodular pattern in both lower lobes, left greater than right with areas characteristic of a tree in bud pattern suggesting atypical infection such as SHALOM. 3. Nodular like area is predominantly an interstitial process in a deshaun-fissural distribution posteriorly in the right upper lobe and probably postinflammatory. I would recommend a followup noncontrasted CT scan of the chest in 3 months to ensure stability/resolution, Jacinto Pack MD Chest X-Ray 10/11/17 0000 Signed Impressions: Service Date/Time: Wednesday, October 11, 2017 22:32 - CONCLUSION: 1. Mild basilar airspace disease, left greater than right. Differential diagnosis includes a mild bronchopneumonia. No effusion or pneumothorax. James Harrison MD Objective Remarks GENERAL: This is a well-nourished, well-developed patient, in mild distress from cough and wheezing CARDIOVASCULAR: Regular rate and rhythm without murmurs, gallops, or rubs. RESPIRATORY: bilateral inspiratory and expiratory wheezing GASTROINTESTINAL: Abdomen soft, non-tender, nondistended. No guarding. MUSCULOSKELETAL: Extremities without clubbing, cyanosis. No calf tenderness. Bilateral mild pitting edema at the ankles. NEUROLOGICAL: Awake and alert. Motor and sensory grossly within normal limits. Normal speech. A/P Assessment and Plan Pneumonia. Failed outpatient. Possibly atypical. With history of recent leprosy treatment for her . No active lesions on her skin or husbands. Remove isolation per ID specialist Follow recommendations by infectious disease specialist. Continue IV abx Azithromycin/cefepime. Cultures including sputum cultures/AFB cultures/blood cultures pending. Pulm ff. ID specialist recommends bronchoscopy. Plan for bronch Wednesday 10/17 per pulm. Resumed home medications, monitor. Symptomatic treatment of cough with Robitussin/codeine. Nebulizers when necessary. Will hold off on prednisone at this point. Only if patient is severely tight/ wheezing, we'll consider steroid therapy. Acute transaminitis. Monitor LFTs DC norco- use oxycodone on its own Liver US noted, hepatitis profile pending GI consult for further eval- suspects meds induced AFP level, ROSALEE, AMA, ASMA, Hepatitis profile, Ferritin, Iron saturation, Ceruloplasmin, Alpha 1 Antitrypsin Monitor LFTs Discussed with Dr Williamson GI. Likely findings related to infection and medications. 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 Planned for removal at [facility] next week. DVT prophylaxis on Coumadin. GI prophylaxis on pantoprazole. Discussed Condition With Patient, nurse, at bedside, Dr Williamson GI DC plan: Pending improvement, work up in progress. Plan for bronch on Wednesday 10/17 per pulmonary as patient with elevated INR . Nicole Andersen MD Oct 16, 2017 12:46
[2017-10-16] MEDS: AZITHROMYCIN INJ 500 MG in SODIUM CHLOR 0.9% 250 ML INJ 250 ML IV SCH (16:47)
[2017-10-16 18:12] LABS: INTERNATIONAL NORMALIZED RATIO 1.5 RATIO; PROTHROMBIN TIME - PATIENT 15.2 SEC (9.8-11.6)
[2017-10-16] MEDS: GABAPENTIN 300 MG CAP PO SCH (21:09)
[2017-10-17] VITALS (12 sets, daily range): BP systolic 142–169; BP diastolic 65–80; PULSE 86–105; RESP 17–20; TEMP 97.1–98.2; O2SAT 94–98
[2017-10-17] MEDS: guaiFENesin/DEXTROMETHORPHAN 200 MG/20 MG/10 ML CUP PO PRN ×5 (00:24→21:36)
[2017-10-17] MEDS: ACETAMINOPHEN/CODEINE 300 MG/30 MG TAB PO PRN ×4 (00:25→14:32)
[2017-10-17] MEDS: RESP: ALBUTEROL 2.5 MG/IPRATROPIUM 0.5 MG NEB (PRN) NEB ×3 (00:33→23:36)
[2017-10-17] MEDS ORDERED: POVIDONE IODINE 5% (ANTISEPSIS KIT) 4 APPLICATIONS EACH NARE PRN (01:00)
[2017-10-17] MEDS ORDERED: SODIUM CHLORID 0.9% 500 ML IV PRN (01:00)
[2017-10-17] MEDS ORDERED: LACTATED RINGER'S 1000 ML IV PRN (01:00)
[2017-10-17] MEDS ORDERED: CHLORHEXIDINE GLUCONATE 2 % 1 PACK (2 CLOTHS) TOPICAL PRN (01:00)
[2017-10-17] MEDS: CARISOPRODOL 350 MG TAB PO PRN ×4 (03:46→21:35)
[2017-10-17] MEDS: CEFEPIME INJ 2,000 MG in SODIUM CHLORIDE 0.9% INJ 100 ML IV SCH ×3 (06:15→21:36)
[2017-10-17] MEDS: SODIUM CHLORIDE 0.9% FLUSH 10 ML FLUSH IV FLUSH PRN (06:16)
[2017-10-17] MEDS: LEVOTHYROXINE SODIUM 100 MCG TAB PO SCH (06:16)
[2017-10-17] MEDS: methylPREDNISolone SOD SUCC 40 MG/1 ML VIAL IV PUSH SCH ×4 (06:16→23:18)
[2017-10-17 08:40] LABS: AUTOMATED NEUTROPHIL # 11.6 TH/MM3 (1.8-7.7); BASOPHIL % 0.1 % (0.0-2.0); HEMATOCRIT 31.2 % (35.0-46.0); HEMO FLAGS DIFF FINAL; LYMPH % 2.3 % (9.0-44.0); LYMPHOCYTE # 0.3 TH/MM3 (1.0-4.8); MEAN CELL VOLUME 89.2 FL (80.0-100.0); MEAN CORPUSCULAR HEMOGLOBIN 29.1 PG (27.0-34.0); MEAN CORPUSCULAR HGB CONC 32.7 % (32.0-36.0); MONO % 3.1 % (0.0-8.0); NEUT % 94.5 % (16.0-70.0); PLATELET COUNT 227 TH/MM3 (150-450); RED CELL DISTRIBUTION WIDTH 17.9 % (11.6-17.2); WHITE BLOOD COUNT 12.3 TH/MM3 (4.0-11.0)
[2017-10-17 08:46] LABS: INTERNATIONAL NORMALIZED RATIO 1.2 RATIO; PROTHROMBIN TIME - PATIENT 12.4 SEC (9.8-11.6)
[2017-10-17] MEDS: BUDESONIDE-FORMOTEROL 160/4.5 MCG INHALER INH SCH ×2 (08:58→21:36)
[2017-10-17] MEDS: LISINOPRIL 20 MG TAB PO SCH (08:58)
[2017-10-17] MEDS: DILTIAZEM-CD 180 MG CAP ER PO SCH ×2 (08:58→21:35)
[2017-10-17] MEDS: SODIUM CHLORIDE 0.9% FLUSH 10 ML FLUSH IV FLUSH SCH ×2 (08:58→21:36)
[2017-10-17] MEDS: PANTOPRAZOLE SOD 20 MG DELAYED RELEASE TAB PO SCH ×2 (08:58→21:35)
[2017-10-17] MEDS: DULoxetine HCl DR 60 MG CAP PO SCH (08:58)
[2017-10-17 09:16] LABS: ALKALINE PHOSPHATASE 125 U/L (45-117); ALT (GPT) 215 U/L (10-53); TOTAL BILIRUBIN ADULT 0.6 MG/DL (0.2-1.0)
[2017-10-17 09:20] LABS: ANION GAP 10 MEQ/L (5-15); BICARBONATE 18.9 MEQ/L (21.0-32.0); BLOOD UREA NITROGEN 22 MG/DL (7-18); CHLORIDE 97 MEQ/L (98-107); GLOMERULAR FILTRATION RATE 46 ML/MIN (>89); SODIUM (NA) 126 MEQ/L (136-145)
[2017-10-17 09:21] LABS: AST (GOT) 109 U/L (15-37); POTASSIUM 4.8 MEQ/L (3.5-5.1)
--- NOTE | 2017-10-17 10:12 | HHI.PR ---
Subjective Remarks In the bed says she was able to sleep overnight and had less cough. No hemoptysis. No fever or chills. No wheezing at this time. Says she feels jittery after nebs. No n/v/d/c. Objective Vitals Vital Signs Date Time Temp Pulse Resp B/P (MAP) Pulse Ox O2 Delivery O2 Flow Rate FiO2 10/17/17 04:52 87 10/17/17 04:00 97.8 105 20 169/80 (109) 98 10/17/17 03:45 Nasal Cannula 2.00 10/17/17 00:36 97 Nasal Cannula 2.00 10/17/17 00:00 Nasal Cannula 2.00 Humidified 10/17/17 00:00 97.9 94 18 148/65 (92) 97 10/17/17 00:00 Nasal Cannula 2.00 10/16/17 20:00 Nasal Cannula 2.00 Humidified 10/16/17 20:00 98.0 92 20 150/69 (96) 97 10/16/17 19:52 89 10/16/17 16:00 98.6 89 18 148/34 (72) 93 10/16/17 16:00 93 10/16/17 15:39 97 Nasal Cannula 2.00 10/16/17 14:35 16 10/16/17 12:15 160/70 (100) 10/16/17 12:00 100 10/16/17 12:00 97.8 91 20 160/70 (100) 97 I/O 10/16/17 10/16/17 10/16/17 10/17/17 10/17/17 10/17/17 07:00 15:00 23:00 07:00 15:00 23:00 Intake Total 240 ml 1290 ml 480 ml Balance 240 ml 1290 ml 480 ml Intake Oral 240 ml 840 ml 480 ml IV Total 450 ml # Voids 2 5 5 # Bowel Movements 0 0 0 Result Diagram: 10/17/17 0800 10/17/17 0800 Imaging Last Impressions Liver Ultrasound 10/12/17 0000 Signed Impressions: Service Date/Time: Thursday, October 12, 2017 08:51 - CONCLUSION: Hepatic steatosis. Prior cholecystectomy. Atrophic right kidney. Cuong Quintero Jr., MD CT Angiography 10/11/17 5841 Signed Impressions: Service Date/Time: Wednesday, October 11, 2017 15:00 - CONCLUSION: 1. No pulmonary embolus. 2. However, there is a reticulonodular pattern in both lower lobes, left greater than right with areas characteristic of a tree in bud pattern suggesting atypical infection such as SHALOM. 3. Nodular like area is predominantly an interstitial process in a deshaun-fissural distribution posteriorly in the right upper lobe and probably postinflammatory. I would recommend a followup noncontrasted CT scan of the chest in 3 months to ensure stability/resolution, Jacinto Pack MD Chest X-Ray 10/11/17 0000 Signed Impressions: Service Date/Time: Wednesday, October 11, 2017 22:32 - CONCLUSION: 1. Mild basilar airspace disease, left greater than right. Differential diagnosis includes a mild bronchopneumonia. No effusion or pneumothorax. James Harrison MD Objective Remarks GENERAL: This is a well-nourished, well-developed patient, in mild distress from cough and wheezing CARDIOVASCULAR: Regular rate and rhythm without murmurs, gallops, or rubs. RESPIRATORY: bilateral inspiratory and expiratory wheezing GASTROINTESTINAL: Abdomen soft, non-tender, nondistended. No guarding. MUSCULOSKELETAL: Extremities without clubbing, cyanosis. No calf tenderness. Bilateral mild pitting edema at the ankles. NEUROLOGICAL: Awake and alert. Motor and sensory grossly within normal limits. Normal speech. A/P Assessment and Plan Pneumonia. Failed outpatient. Possibly atypical. With history of recent leprosy treatment for her . No active lesions on her skin or husbands. Remove isolation per ID specialist Follow recommendations by infectious disease specialist. Continue IV abx Azithromycin/cefepime. Cultures including sputum cultures/AFB cultures/blood cultures pending. Pulm ff. ID specialist recommends bronchoscopy. Plan for bronch Wednesday 10/17 per pulm. Resumed home medications, monitor. Symptomatic treatment of cough with Robitussin/codeine. Nebulizers when necessary. Will hold off on prednisone at this point. Only if patient is severely tight/ wheezing, we'll consider steroid therapy. Acute transaminitis. Monitor LFTs DC norco- use oxycodone on its own Liver US noted, hepatitis profile pending GI consult for further eval- suspects meds induced AFP level, ROSALEE, AMA, ASMA, Hepatitis profile, Ferritin, Iron saturation, Ceruloplasmin, Alpha 1 Antitrypsin Monitor LFTs Discussed with Dr Clay LINDSEY. Likely findings related to infection and medications. 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 Planned for removal at [facility] next week. DVT prophylaxis on Coumadin. GI prophylaxis on pantoprazole. Discussed Condition With Patient, nurse, at bedside, Dr Clay LINDSEY DC plan: Pending improvement, work up in progress. Plan for bronch today Tuesday 12/ per pulmonary as patient had elevated INR . INR is 1.2 today. Resume anticoagulation thereafter. Dc when improved and cleared by consultants Nicole Andersen MD Oct 17, 2017 10:12
[2017-10-17] MEDS: AZITHROMYCIN INJ 500 MG in SODIUM CHLOR 0.9% 250 ML INJ 250 ML IV SCH (17:00)
[2017-10-17] MEDS ORDERED: EPINEPHrine HCL (1:10,000) 1 MG/10 ML SYRINGE E-TRACHE ONE (17:27)
--- NOTE | 2017-10-17 17:39 | HHI.PR ---
Subjective Remarks 72 YOWF with COPD exac, Bilat infilt Has elevated liver enzymes Persistant cough Wheezing better Had bronch done Lot of ythick mucous suctioned Objective Vital Signs Vital Signs Date Time Temp Pulse Resp B/P (MAP) Pulse Ox O2 Delivery O2 Flow Rate FiO2 10/17/17 16:06 86 10/17/17 16:00 98.1 91 18 156/76 (102) 97 10/17/17 12:06 93 10/17/17 12:00 98.2 90 17 151/68 (95) 98 10/17/17 08:02 95 10/17/17 08:00 97.1 90 17 148/69 (95) 96 10/17/17 04:52 87 10/17/17 04:00 97.8 105 20 169/80 (109) 98 10/17/17 03:45 Nasal Cannula 2.00 10/17/17 00:36 97 Nasal Cannula 2.00 10/17/17 00:00 Nasal Cannula 2.00 Humidified 10/17/17 00:00 97.9 94 18 148/65 (92) 97 10/17/17 00:00 Nasal Cannula 2.00 10/16/17 20:00 Nasal Cannula 2.00 Humidified 10/16/17 20:00 98.0 92 20 150/69 (96) 97 10/16/17 19:52 89 I/O 10/16/17 10/16/17 10/16/17 10/17/17 10/17/17 10/17/17 07:00 15:00 23:00 07:00 15:00 23:00 Intake Total 240 ml 1290 ml 480 ml Balance 240 ml 1290 ml 480 ml Intake Oral 240 ml 840 ml 480 ml IV Total 450 ml # Voids 2 5 5 # Bowel Movements 0 0 0 Result Diagram: 10/17/17 0800 10/17/17 0800 Objective Remarks GENERAL: WBWN WF, mild sob SKIN: Warm and dry. HEAD: Normocephalic. EYES: No scleral icterus. No injection or drainage. NECK: Supple, trachea midline. No JVD or lymphadenopathy. CARDIOVASCULAR: Regular rate and rhythm without murmurs, gallops, or rubs. RESPIRATORY: Breath sounds equal bilaterally. No accessory muscle use. Exp rhonchi GASTROINTESTINAL: Abdomen soft, non-tender, nondistended. MUSCULOSKELETAL: No cyanosis, or edema. BACK: Nontender without obvious deformity. No CVA tenderness. A/P Assessment and Plan COPD Exac Bilat reticulonodular infilt, r/o SHALOM AF CAD H/O ca breast PLAN: IV Solumedrol Aerosol nebs Cont Abx Robitussin AC cough syp Post bronch cxr Check bronch results DW family Brcie Posada MD Oct 17, 2017 17:38
[2017-10-17] MEDS ORDERED: DO NOT ADM ANY ANTICOAGULANT DRUGS PRN (17:49)
--- NOTE | 2017-10-17 18:46 | RADRPT ---
EXAM DATE/TIME: 10/17/2017 18:15 [facility] COMPARISON: CHEST SINGLE AP, October 11, 2017, 22:32. INDICATIONS : Post bronchoscopy. MEDICAL HISTORY : None. SURGICAL HISTORY : None. ENCOUNTER: Initial ACUITY: 1 day PAIN SCORE: Non-responsive. LOCATION: Bilateral chest FINDINGS: The heart is mildly prominent. Perihilar infiltrates are noted consistent with mild pulmonary vascula r congestion versus pneumonia. Clinical correlation is recommended. Degenerative changes and scoliosi s of the thoracic spine are noted. CONCLUSION: 1. Perihilar infiltrates suggestive of mild pulmonary vascular congestion versus pneumonia. Clinical correlation is recommended. 2. Mild cardiomegaly. Zane Bassett MD on October 17, 2017 at 18:42 Board Certified Radiologist. This report was verified electronically.
[2017-10-17] MEDS: GABAPENTIN 300 MG CAP PO SCH (21:35)
[2017-10-18] VITALS (12 sets, daily range): BP systolic 140–187; BP diastolic 62–80; PULSE 86–99; RESP 18–20; TEMP 97.9–98.4; O2SAT 95–100
[2017-10-18] MEDS: guaiFENesin/DEXTROMETHORPHAN 200 MG/20 MG/10 ML CUP PO PRN ×5 (03:32→20:37)
[2017-10-18] MEDS: ACETAMINOPHEN/CODEINE 300 MG/30 MG TAB PO PRN ×5 (03:32→20:38)
[2017-10-18] MEDS: LEVOTHYROXINE SODIUM 100 MCG TAB PO SCH (05:23)
[2017-10-18] MEDS: methylPREDNISolone SOD SUCC 40 MG/1 ML VIAL IV PUSH SCH ×4 (05:23→23:38)
[2017-10-18] MEDS: CEFEPIME INJ 2,000 MG in SODIUM CHLORIDE 0.9% INJ 100 ML IV SCH ×3 (05:23→22:15)
[2017-10-18] MEDS: CARISOPRODOL 350 MG TAB PO PRN ×3 (05:23→22:14)
--- NOTE | 2017-10-18 05:59 | MR ---
cc: PERLA LARRY DATE OF PROCEDURE 10/17/2017 PROCEDURE Bronchoscopy PREOPERATIVE DIAGNOSIS Basal nodular lung infiltrate. POSTOPERATIVE DIAGNOSIS A lot of thick mucus suctioned. No endobronchial lesions seen. PROCEDURE Informed consent was obtained from the patient. The procedure and the complications including complication of anesthesia, pneumothorax requiring chest tube, bleeding complication, injury to blood vessels, lungs, nerves, arrhythmia, hypoxia and she consented for the procedure. The patient was brought to the operating room. Under general anesthesia endotracheal tube was placed by anesthesiologist. Bronchoscopy was done through endotracheal tube. The main karen is sharp. Bronchoscope was advanced to the right lung. The right upper, middle and lower lobes were visualized. A lot of thick mucus was suctioned. Mild erythema of the airways. No endobronchial lesion was seen. Then the bronchoscope was pulled out and advanced to the left lung. The left upper, lingula and lower lobes were visualized. There was some old blood-tinged sputum from the right upper lobe and right lower lobe, was suctioned. After suctioning, all subsegments were patent. No endobronchial lesion was seen. Left lower lobe brushings and washings were done. Washing was sent for cytology, routine culture, AFB, fungal culture and brushings sent for cytology. The patient tolerated the procedure well. Postprocedure chest x-ray ordered to rule out pneumothorax. MD ANU Bejarano/ANT /5:39 PM /5:36 AM
[2017-10-18 07:34] LABS: AUTOMATED NEUTROPHIL # 9.4 TH/MM3 (1.8-7.7); HEMO FLAGS DIFF FINAL; LYMPH % 1.8 % (9.0-44.0); LYMPHOCYTE # 0.2 TH/MM3 (1.0-4.8); MEAN CELL VOLUME 89.3 FL (80.0-100.0); MEAN CORPUSCULAR HEMOGLOBIN 30.1 PG (27.0-34.0); MEAN CORPUSCULAR HGB CONC 33.7 % (32.0-36.0); MONO % 2.2 % (0.0-8.0); PLATELET COUNT 220 TH/MM3 (150-450); RED BLOOD COUNT 3.36 MIL/MM3 (4.00-5.30); RED CELL DISTRIBUTION WIDTH 17.3 % (11.6-17.2); WHITE BLOOD COUNT 9.8 TH/MM3 (4.0-11.0)
[2017-10-18 07:54] LABS: ALKALINE PHOSPHATASE 102 U/L (45-117); TOTAL BILIRUBIN ADULT 0.4 MG/DL (0.2-1.0)
[2017-10-18 07:59] LABS: ALT (GPT) 179 U/L (10-53); ANION GAP 7 MEQ/L (5-15); AST (GOT) 47 U/L (15-37); BLOOD UREA NITROGEN 20 MG/DL (7-18); CHLORIDE 99 MEQ/L (98-107); GLOMERULAR FILTRATION RATE 56 ML/MIN (>89); POTASSIUM 4.2 MEQ/L (3.5-5.1); SODIUM (NA) 129 MEQ/L (136-145)
--- NOTE | 2017-10-18 08:22 | HHI.PR ---
Subjective Remarks still coughing up little blood tinged sputum, breathing "much better" overall feeling better- throat and chest discomfort from post bronchoscopy procedure improved states no BM for past 2-3 days which is not unusual for her-state she takes Miralax at home daily no abdominal discomfort, nausea or vomiting or abdominal pain telemetry- a fib- rate 90s Objective Vitals Vital Signs Date Time Temp Pulse Resp B/P (MAP) Pulse Ox O2 Delivery O2 Flow Rate FiO2 10/18/17 04:16 86 10/18/17 04:00 98.4 87 20 150/67 (94) 95 10/18/17 00:00 Nasal Cannula 3.00 10/18/17 00:00 98.2 89 20 140/62 (88) 100 10/17/17 22:26 94 Nasal Cannula 3.00 10/17/17 20:00 Nasal Cannula 3.00 Humidified 10/17/17 20:00 92 10/17/17 20:00 98.1 91 20 142/73 (96) 96 10/17/17 18:45 89 20 134/67 (89) 97 Nasal Cannula 4 10/17/17 18:30 91 20 143/71 (95) 96 Nasal Cannula 4 10/17/17 18:15 82 20 133/64 (87) 95 Nasal Cannula 4 10/17/17 18:00 85 20 144/65 (91) 95 Nasal Cannula 4 10/17/17 17:46 98.1 86 20 160/71 (100) 95 Nasal Cannula 4 Manual Cuff/Auscultation 10/17/17 16:06 86 10/17/17 16:00 98.1 91 18 156/76 (102) 97 10/17/17 12:06 93 10/17/17 12:00 98.2 90 17 151/68 (95) 98 I/O 10/17/17 10/17/17 10/17/17 10/18/17 10/18/17 10/18/17 07:00 15:00 23:00 07:00 15:00 23:00 Intake Total 480 ml 100 ml 400 ml 580 ml Balance 480 ml 100 ml 400 ml 580 ml Intake Oral 480 ml 480 ml IV Total 100 ml 100 ml 100 ml Other 300 ml # Voids 5 4 2 # Bowel Movements 0 Result Diagram: 12/5/17 0625 12/5/17 0625 Imaging Last Impressions Chest X-Ray 10/17/17 0000 Signed Impressions: Service Date/Time: Tuesday, October 17, 2017 18:15 - CONCLUSION: 1. Perihilar infiltrates suggestive of mild pulmonary vascular congestion versus pneumonia. Clinical correlation is recommended. 2. Mild cardiomegaly. Zane Bassett MD Liver Ultrasound 10/12/17 0000 Signed Impressions: Service Date/Time: Thursday, October 12, 2017 08:51 - CONCLUSION: Hepatic steatosis. Prior cholecystectomy. Atrophic right kidney. Cuong Quintero Jr., MD CT Angiography 10/11/17 1415 Signed Impressions: Service Date/Time: Wednesday, October 11, 2017 15:00 - CONCLUSION: 1. No pulmonary embolus. 2. However, there is a reticulonodular pattern in both lower lobes, left greater than right with areas characteristic of a tree in bud pattern suggesting atypical infection such as SHALOM. 3. Nodular like area is predominantly an interstitial process in a deshaun-fissural distribution posteriorly in the right upper lobe and probably postinflammatory. I would recommend a followup noncontrasted CT scan of the chest in 3 months to ensure stability/resolution, Jacinto Pack MD Objective Remarks awake and alert, oriented x 3 skin with superficial ecchymoses anicteric, throat no erythema no nuchal rigidity lungs- still with few expiratory wheezes regular rhythm abdomen-globularly soft, nontender extremities no edema, no calf swelling or tenderness neuro exam non focal Procedures 10/17- bronchoscopy- no endobronchial lesion identified, + lots of yellowish mucus secretions suctioned A/P Assessment and Plan 72 years old female Pneumonia. Failed outpatient. Possibly atypical. With history of recent leprosy treatment for her . No active lesions on her skin or husbands. S/P bronchoscopy 10/18- no endobronchial lesions identified, + lots of mucus secretions suctioned HYperreactive Airway disease- secondary to pneumonic process- on exam still with expiratory wheezes Continue IV abx Azithromycin/cefepime. Renew nebulization treatment- give q 4 RTC Continue on IV solumedrol - ff Cultures including sputum cultures/AFB cultures from bronchoscopy Pulm ff. ID specialist ff along with us Symptomatic treatment of cough with Robitussin/codeine. Acute transaminitis. -likely related to infection and medications Monitor LFTs- currently on IV Zithromax DC norco- use oxycodone on its own Liver US noted- unremarkble, hepatitis profile negative GI ff AFP level, ROSALEE, AMA, ASMA, Hepatitis profile, Ferritin, Iron saturation, Ceruloplasmin, Alpha 1 Antitrypsin- pending History of GERD continue on PPI bid HTN Afib- s/p ablation in 1995, dec 2016- continue on Cardizem CD 180 mg bid, LIsinopril 20 mg daily restart Coumadin- as OP on 2.5 mg M and , rest of the week on 2 mg give 10 mg today. FF INR. FF by Dr. Multani as OP SABRINA -with CKD- GFR 40 at baseline - due to NSAID induced nephropathy MIld hyponatremia- asymptomatic ff electrolytes renal functions improved Hypothyroidism on Synthroid H/o breast cancer- left side- s/p chemo and s/p radiation, s/p lumpectomy- finished treatment in 2013 Anemia- appears chronic- H and H stable Recent diagnosis of intestinal polyp with mild GI bleeding by capsule endoscopy as OP Planned for removal at [facility] next week. DVT prophylaxis on Coumadin. GI prophylaxis on pantoprazole. Discussed Condition With Patient, and daughter at bedside Increase activity- up and ambulate around the room as tolerated DC plan: Pending improvement, work up in progress. Resumed anticoagulation thereafter. Dc when improved and cleared by consultants Cleo Sanders MD Oct 18, 2017 08:22
[2017-10-18] MEDS: LISINOPRIL 20 MG TAB PO SCH (08:26)
[2017-10-18] MEDS: DULoxetine HCl DR 60 MG CAP PO SCH (08:26)
[2017-10-18] MEDS: PANTOPRAZOLE SOD 20 MG DELAYED RELEASE TAB PO SCH ×2 (08:26→20:03)
[2017-10-18] MEDS: DILTIAZEM-CD 180 MG CAP ER PO SCH ×2 (08:26→20:03)
[2017-10-18] MEDS: BUDESONIDE-FORMOTEROL 160/4.5 MCG INHALER INH SCH ×2 (08:27→20:03)
[2017-10-18] MEDS: SODIUM CHLORIDE 0.9% FLUSH 10 ML FLUSH IV FLUSH SCH ×2 (08:27→20:04)
[2017-10-18] MEDS: RESP: ALBUTEROL 2.5 MG/IPRATROPIUM 0.5 MG NEB (SCH) NEB ×4 (09:30→19:02)
--- NOTE | 2017-10-18 10:09 | HHI.GIFU ---
GI Follow-up Note Consult Follow-up Subjective: Patient laying in bed comfortably, no new complaints; she's breathing more comfortably after the bronchoscopy. Objective: PHYSICAL EXAMINATION: Vitals signs stable No fever HEENT: EOMI HEAD OF DIGITAL ADVERTISING & INTEGRATION: alert and oriented times three. Available Data (labs, X- Rays, Procedues) : Liver enzymes continue to trend down toward normal. ASSESSMENT/PLAN: 1. Elevated liver enzymes; likely related to the infection or a medication. We can follow labs even after discharge; no further work-up needed. 2. Small intestine polyp. We can reschedule double balloon enteroscopy when her respiratory status is comfortable. Will see PRN. It was a pleasure seeing Allred,Anila García. Entered by: Kvng Guerra MD Oct 18, 2017 10:09
--- NOTE | 2017-10-18 11:11 | HHI.PR ---
Subjective Remarks 72 YOWF with COPD exac, Bilat infilt Has elevated liver enzymes Persistant cough Wheezing better Had bronch done Feels better Less congested Objective Vital Signs Vital Signs Date Time Temp Pulse Resp B/P (MAP) Pulse Ox O2 Delivery O2 Flow Rate FiO2 10/18/17 11:01 88 10/18/17 10:09 Nasal Cannula 3.00 10/18/17 09:33 98 Nasal Cannula 2.00 10/18/17 08:00 97.9 96 20 170/70 (103) 99 10/18/17 04:16 86 10/18/17 04:00 98.4 87 20 150/67 (94) 95 10/18/17 00:00 Nasal Cannula 3.00 10/18/17 00:00 98.2 89 20 140/62 (88) 100 10/17/17 22:26 94 Nasal Cannula 3.00 10/17/17 20:00 Nasal Cannula 3.00 Humidified 10/17/17 20:00 92 10/17/17 20:00 98.1 91 20 142/73 (96) 96 10/17/17 18:45 89 20 134/67 (89) 97 Nasal Cannula 4 10/17/17 18:30 91 20 143/71 (95) 96 Nasal Cannula 4 10/17/17 18:15 82 20 133/64 (87) 95 Nasal Cannula 4 10/17/17 18:00 85 20 144/65 (91) 95 Nasal Cannula 4 10/17/17 17:46 98.1 86 20 160/71 (100) 95 Nasal Cannula 4 Manual Cuff/Auscultation 10/17/17 16:06 86 10/17/17 16:00 98.1 91 18 156/76 (102) 97 10/17/17 12:06 93 10/17/17 12:00 98.2 90 17 151/68 (95) 98 I/O 10/17/17 10/17/17 10/17/17 10/18/17 10/18/17 10/18/17 07:00 15:00 23:00 07:00 15:00 23:00 Intake Total 480 ml 100 ml 400 ml 580 ml Balance 480 ml 100 ml 400 ml 580 ml Intake Oral 480 ml 480 ml IV Total 100 ml 100 ml 100 ml Other 300 ml # Voids 5 4 2 # Bowel Movements 0 Result Diagram: 10/18/1762410/18/17624 Objective Remarks GENERAL: WBWN WF, mild sob SKIN: Warm and dry. HEAD: Normocephalic. EYES: No scleral icterus. No injection or drainage. NECK: Supple, trachea midline. No JVD or lymphadenopathy. CARDIOVASCULAR: Regular rate and rhythm without murmurs, gallops, or rubs. RESPIRATORY: Breath sounds equal bilaterally. No accessory muscle use. Exp rhonchi GASTROINTESTINAL: Abdomen soft, non-tender, nondistended. MUSCULOSKELETAL: No cyanosis, or edema. BACK: Nontender without obvious deformity. No CVA tenderness. A/P Assessment and Plan COPD Exac Bilat reticulonodular infilt, r/o SHALOM AF CAD H/O ca breast PLAN: IV Solumedrol Aerosol nebs Cont Abx Robitussin AC cough syp Post bronch cxr Check bronch results DW family Wean off 02 OOB and ambulate Brice Posada MD Oct 18, 2017 11:11
[2017-10-18] MEDS ORDERED: WARFARIN SOD 10 MG TAB PO ONE (16:00)
[2017-10-18] MEDS: AZITHROMYCIN INJ 500 MG in SODIUM CHLOR 0.9% 250 ML INJ 250 ML IV SCH (16:21)
--- NOTE | 2017-10-18 18:14 | EKG ---
Date Performed: 10/18/2017 Time Performed: 07:32:01 PTAGE: 72 years EKG: Sinus rhythm INCOMPLETE RIGHT BUNDLE BRANCH BLOCK MINIMAL VOLTAGE CRITERIA FOR LVH, CONSIDER NORMAL VARIANT ST DE VIATION AND MODERATE T-WAVE ABNORMALITY, CONSIDER LATERAL ISCHEMIA When compared to previous tracing, the patient has developed Anterolateral ST elevation associated with the left ventricular Hypertroph y. This may just be associated with the left ventricular hypertrophy, But the finding is new in myoca rdial ischemia and injury should be Excluded clinically. ABNORMAL ECG PREVIOUS TRACING : 08/11/2016 06.16 DOCTOR: Nay Anderson Interpretating Date/Time 10/18/2017 18:13:37
[2017-10-18] MEDS: GABAPENTIN 300 MG CAP PO SCH (20:03)
[2017-10-19] VITALS (16 sets, daily range): BP systolic 91–160; BP diastolic 55–81; PULSE 84–107; RESP 18–21; TEMP 98–98.5; O2SAT 92–100
[2017-10-19] MEDS: RESP: ALBUTEROL 2.5 MG/IPRATROPIUM 0.5 MG NEB (SCH) NEB ×6 (04:00→21:02)
[2017-10-19] MEDS: guaiFENesin/DEXTROMETHORPHAN 200 MG/20 MG/10 ML CUP PO PRN ×4 (04:37→18:03)
[2017-10-19] MEDS: ACETAMINOPHEN/CODEINE 300 MG/30 MG TAB PO PRN ×4 (04:38→18:04)
[2017-10-19] MEDS ORDERED: POLYETHYLENE GLYCOL 17 GM PKG PO ONE (04:45)
[2017-10-19] MEDS: CARISOPRODOL 350 MG TAB PO PRN ×3 (06:10→21:03)
[2017-10-19] MEDS: LEVOTHYROXINE SODIUM 100 MCG TAB PO SCH (06:10)
[2017-10-19] MEDS: CEFEPIME INJ 2,000 MG in SODIUM CHLORIDE 0.9% INJ 100 ML IV SCH ×2 (06:10→12:10)
[2017-10-19] MEDS: methylPREDNISolone SOD SUCC 40 MG/1 ML VIAL IV PUSH SCH (06:10)
[2017-10-19 07:43] LABS: AUTOMATED NEUTROPHIL # 10.5 TH/MM3 (1.8-7.7); BASOPHIL % 0.2 % (0.0-2.0); EOSINOPHIL % 0.2 % (0.0-4.0); HEMATOCRIT 29.2 % (35.0-46.0); LYMPH % 1.2 % (9.0-44.0); LYMPHOCYTE # 0.1 TH/MM3 (1.0-4.8); MEAN CELL VOLUME 88.6 FL (80.0-100.0); MEAN CORPUSCULAR HEMOGLOBIN 29.8 PG (27.0-34.0); MEAN CORPUSCULAR HGB CONC 33.7 % (32.0-36.0); MONO % 1.7 % (0.0-8.0); NEUT % 96.7 % (16.0-70.0); PLATELET COUNT 222 TH/MM3 (150-450); RED CELL DISTRIBUTION WIDTH 17.6 % (11.6-17.2); WHITE BLOOD COUNT 10.8 TH/MM3 (4.0-11.0)
[2017-10-19 07:46] LABS: HEMO FLAGS AUTO DIFF; INTERNATIONAL NORMALIZED RATIO 1.1 RATIO; PROTHROMBIN TIME - PATIENT 11.6 SEC (9.8-11.6)
[2017-10-19] MEDS: BUDESONIDE-FORMOTEROL 160/4.5 MCG INHALER INH SCH ×2 (07:57→19:46)
[2017-10-19] MEDS: DILTIAZEM-CD 180 MG CAP ER PO SCH ×2 (07:58→19:48)
[2017-10-19] MEDS: SODIUM CHLORIDE 0.9% FLUSH 10 ML FLUSH IV FLUSH SCH ×2 (07:58→19:48)
[2017-10-19] MEDS: PANTOPRAZOLE SOD 20 MG DELAYED RELEASE TAB PO SCH ×2 (07:59→19:47)
[2017-10-19] MEDS: DULoxetine HCl DR 60 MG CAP PO SCH (07:59)
[2017-10-19] MEDS: LISINOPRIL 20 MG TAB PO SCH (07:59)
[2017-10-19] MEDS: AZITHROMYCIN 250 MG TAB PO SCH (08:00)
[2017-10-19 08:11] LABS: ALKALINE PHOSPHATASE 107 U/L (45-117); ALT (GPT) 141 U/L (10-53); TOTAL BILIRUBIN ADULT 0.4 MG/DL (0.2-1.0)
[2017-10-19 08:12] LABS: ANION GAP 7 MEQ/L (5-15); AST (GOT) 41 U/L (15-37); BICARBONATE 23.8 MEQ/L (21.0-32.0); BLOOD UREA NITROGEN 20 MG/DL (7-18); CHLORIDE 100 MEQ/L (98-107); GLOMERULAR FILTRATION RATE 60 ML/MIN (>89); SODIUM (NA) 131 MEQ/L (136-145)
[2017-10-19 08:13] LABS: POTASSIUM 4.7 MEQ/L (3.5-5.1)
[2017-10-19 08:59] LABS: OVALOCYTES 1+ (NORMAL); SCAN/DIFF AUTO DIFF CONFIRMED
--- NOTE | 2017-10-19 09:38 | HHI.PR ---
Subjective Remarks complain of soreness of the throat minimal cough no hemoptysis Objective Vitals Vital Signs Date Time Temp Pulse Resp B/P (MAP) Pulse Ox O2 Delivery O2 Flow Rate FiO2 10/19/17 08:02 98.5 91 19 156/73 (100) 100 10/19/17 07:44 98 Nasal Cannula 1.00 10/19/17 07:16 Nasal Cannula 2.00 10/19/17 05:00 98.1 95 18 139/65 (89) 96 10/19/17 04:14 90 10/19/17 00:25 106 10/19/17 00:00 98.0 97 18 150/81 (104) 93 10/18/17 20:38 99 10/18/17 20:00 95 Nasal Cannula 2.00 Humidified 10/18/17 19:50 97.9 99 18 148/69 (95) 95 10/18/17 16:39 92 10/18/17 16:00 98.0 92 20 143/66 (91) 98 10/18/17 15:10 100 Nasal Cannula 3.00 10/18/17 12:00 98.1 96 20 187/80 (115) 100 10/18/17 11:01 88 10/18/17 10:09 Nasal Cannula 3.00 I/O 10/18/17 10/18/17 10/18/17 10/19/17 10/19/17 10/19/17 07:00 15:00 23:00 07:00 15:00 23:00 Intake Total 580 ml 100 ml 610 ml 440 ml Balance 580 ml 100 ml 610 ml 440 ml Intake Oral 480 ml 360 ml 240 ml IV Total 100 ml 100 ml 250 ml 200 ml # Voids 2 5 3 # Bowel Movements 0 0 Result Diagram: 10/19/17 0545 10/19/17 0545 Imaging Last Impressions Chest X-Ray 10/17/17 0000 Signed Impressions: Service Date/Time: Tuesday, October 17, 2017 18:15 - CONCLUSION: 1. Perihilar infiltrates suggestive of mild pulmonary vascular congestion versus pneumonia. Clinical correlation is recommended. 2. Mild cardiomegaly. Zane Bassett MD Liver Ultrasound 10/12/17 0000 Signed Impressions: Service Date/Time: Thursday, October 12, 2017 08:51 - CONCLUSION: Hepatic steatosis. Prior cholecystectomy. Atrophic right kidney. Cuong Quintero Jr., MD CT Angiography 10/11/17 1415 Signed Impressions: Service Date/Time: Wednesday, October 11, 2017 15:00 - CONCLUSION: 1. No pulmonary embolus. 2. However, there is a reticulonodular pattern in both lower lobes, left greater than right with areas characteristic of a tree in bud pattern suggesting atypical infection such as SHALOM. 3. Nodular like area is predominantly an interstitial process in a deshaun-fissural distribution posteriorly in the right upper lobe and probably postinflammatory. I would recommend a followup noncontrasted CT scan of the chest in 3 months to ensure stability/resolution, Jacinto Pack MD Objective Remarks awake and alert, oriented x 3 skin with superficial ecchymoses anicteric, throat no erythema, = sores on the tongue no nuchal rigidity lungs- no wheezes, no rales regular rhythm abdomen-globularly soft, nontender extremities no edema, no calf swelling or tenderness neuro exam non focal Procedures 10/17- bronchoscopy- no endobronchial lesion identified, + lots of yellowish mucus secretions suctioned A/P Assessment and Plan 72 years old female Pneumonia. Failed outpatient. Possibly atypical. With history of recent leprosy treatment for her . No active lesions on her skin or husbands. S/P bronchoscopy 10/18- no endobronchial lesions identified, + lots of mucus secretions suctioned HYperreactive Airway disease- secondary to pneumonic process-- no more wheezes on exam this am Continue IV abx Azithromycin/cefepime. Renew nebulization treatment- give q 4 RTC Continue on IV solumedrol - - change to po Prednisone- no wheezes on exam this am ff Cultures including sputum cultures/AFB cultures from bronchoscopy Pulm ff./ ID specialist ff along with us Symptomatic treatment of cough with Robitussin/codeine. walk test prior to DC if qualifies Acute transaminitis. -likely related to infection and medications Monitor LFTs- currently on zithromax DC norco- use oxycodone on its own Liver US noted- unremarkable, hepatitis profile negative GI ff- OP ff up AFP level, ROSALEE, AMA, ASMA, Hepatitis profile, Ferritin, Iron saturation, Ceruloplasmin, Alpha 1 Antitrypsin- pending History of GERD continue on PPI bid HTN Afib- s/p ablation in 1995, dec 2016- continue on Cardizem CD 180 mg bid, LIsinopril 20 mg daily restart Coumadin- as OP on 2.5 mg M and , rest of the week on 2 mg give another 10 mg today. FF INR. FF by Dr. Multani as OP SABRINA -with CKD- GFR 40 at baseline - due to NSAID induced nephropathy MIld hyponatremia- asymptomatic ff electrolytes renal functions improved Hypothyroidism on Synthroid H/o breast cancer- left side- s/p chemo and s/p radiation, s/p lumpectomy- finished treatment in 2013 Anemia- appears chronic- H and H stable Recent diagnosis of intestinal polyp with mild GI bleeding by capsule endoscopy as OP Planned for removal at [facility] next week. Oral thrush/Tongue sores symptomatic treatment with Magic mouthwash qid DVT prophylaxis on Coumadin. GI prophylaxis on pantoprazole. Discussed Condition With Patient, and daughter at bedside Increase activity- up and ambulate around the room as tolerated DC plan: Pending improvement, work up in progress. Resumed anticoagulation thereafter. Dc when improved and cleared by consultants Cleo Sanders MD Oct 19, 2017 09:38
[2017-10-19] MEDS: NYSTAT/DIPHENHY/LIDO MOUTHWASH (Adult) 120ML SWISH-SWAL SCH ×4 (12:11→19:46)
--- NOTE | 2017-10-19 13:42 | HHI.IDPN ---
Subjective Subjective Remarks is a 72-year-old female with past medical history significant for coronary artery disease, atrial fibrillation status post cardiac ablation who sees Director Product. Patient reports that she was a smoker but quit in 1998 but she had smoked for approximately 34+ years. Patient reports she has had progressive shortness of breath for the last 3-4 months but this was being attributed to her cardiac issues she has never seen a coil placer and never been formally diagnosed with COPD. Patient denies any prior history of pneumonia. Patient reports that she recently saw a cardiothoracic surgeon for consideration for cardiac ablation but was told that other than tachycardia she did not meet criteria for ablation. Her Cardizem dose was recently increased. Patient reports that over the last 3 months she has had tightness in her chest, shortness of breath which has progressively worsened to where she cannot performed her daily activities and gets short of breath on minimal exertion from going from one room to the other. Patient reports being an avid traveler and has traveled extensively. Her most recent visit was in the [facility] in [place] but she also has had a visit in [place] in the recent past. She denies any exposure to patients or people with known tuberculosis. She does mention that her was recently diagnosed with mycobacterium leprae and has been on treatment for leprosy for last 7 months. reports being on multiple drug therapy and following up with [facility] in [place]. He goes on to report this Mycobacterium A was diagnosed based on a skin biopsy when he had numbness and skin changes in his left elbow. 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 He is deemed as non contagious at this point and is compliant with meds and follow ups. Her past medical history is also significant for history of left breast cancer, s/p lumpectomy, radiation, chemotherapy in 2014. She reports she is in remission and cancer free for the last 2 years. She does not have a port in place. With this background patient presents to the emergency room for evaluation of worsening shortness of breath. She initially presented to the emergency department for evaluation of shortness of breath but was discharged from the emergency room on prednisone and Zithromax. She was admitted for pneumonia, failed outpatient. Patient was noted to have elevated LFTs with AST 82, ALT 385 , alkaline phosphatase 155 and GI was consulted. An ultrasound of the liver was done which shows fatty liver. Patient reports that she had positive stool test for blood and therefore underwent workup for anemia as well as EGD, colonoscopy followed by capsule endoscopy. She reports that her capsule endoscopy was positive and that she was supposed to have a procedure done as outpatient for this but unfortunately got admitted prior to that. She denies any nausea, vomiting, abdominal pain. She has not had any changes in her appetite and has not lost any weight. She has not had any changes in her bowel habits. She denies any known history of any liver disease. She is status post cholecystectomy. She only rarely drinks alcohol. Infectious disease is consulted for evaluation and management of pneumonia in a patient with suspected SHALOM. Overnight events reviewed No fevers No rash Still complains of shortness of breath on exertion but improved since bronch. No diarrhea Antibiotics Cefepime IV Azithro IV Lines Line sites with no e.o infection Past Medical History reviewed Allergies: Coded Allergies: diclofenac (Verified Allergy, Severe, 10/11/17) "EFFECTS KIDNEY FUNCTION" etodolac (Verified Allergy, Severe, 10/11/17) "EFFECTS KIDNEY FUNCTION" flurbiprofen (Verified Allergy, Severe, 10/11/17) "EFFECTS KIDNEY FUNCTION" ibuprofen (Verified Allergy, Severe, 10/11/17) "EFFECTS KIDNEY FUNCTION" indomethacin (Verified Allergy, Severe, 10/11/17) "EFFECTS KIDNEY FUNCTION" ketoprofen (Verified Allergy, Severe, 10/11/17) "EFFECTS KIDNEY FUNCTION" ketorolac (Verified Allergy, Severe, 10/11/17) "EFFECTS KIDNEY FUNCTION" naproxen (Verified Allergy, Severe, 10/11/17) "EFFECTS KIDNEY FUNCTION" oxaprozin (Verified Allergy, Severe, 10/11/17) "EFFECTS KIDNEY FUNCTION" Objective . Vital Signs Date Time Temp Pulse Resp B/P (MAP) Pulse Ox O2 Delivery O2 Flow Rate FiO2 10/19/17 12:01 98.3 97 21 152/76 (101) 97 10/19/17 10:00 96 10/19/17 09:58 20 10/19/17 08:02 98.5 91 19 156/73 (100) 100 10/19/17 07:44 98 Nasal Cannula 1.00 10/19/17 07:16 Nasal Cannula 2.00 10/19/17 05:00 98.1 95 18 139/65 (89) 96 10/19/17 04:14 90 10/19/17 00:25 106 10/19/17 00:00 98.0 97 18 150/81 (104) 93 10/18/17 20:38 99 10/18/17 20:00 95 Nasal Cannula 2.00 Humidified 10/18/17 19:50 97.9 99 18 148/69 (95) 95 10/18/17 16:39 92 10/18/17 16:00 98.0 92 20 143/66 (91) 98 10/18/17 15:10 100 Nasal Cannula 3.00 . Laboratory Tests Test 10/18/17 06:25 10/19/17 05:45 White Blood Count 9.8 TH/MM3 10.8 TH/MM3 Red Blood Count 3.36 MIL/MM3 3.30 MIL/MM3 Hemoglobin 10.1 GM/DL 9.8 GM/DL Hematocrit 30.0 % 29.2 % Mean Corpuscular Volume 89.3 FL 88.6 FL Mean Corpuscular Hemoglobin 30.1 PG 29.8 PG Mean Corpuscular Hemoglobin Concent 33.7 % 33.7 % Red Cell Distribution Width 17.3 % 17.6 % Platelet Count 220 TH/MM3 222 TH/MM3 Mean Platelet Volume 8.0 FL 8.2 FL Neutrophils (%) (Auto) 96.0 % 96.7 % Lymphocytes (%) (Auto) 1.8 % 1.2 % Monocytes (%) (Auto) 2.2 % 1.7 % Eosinophils (%) (Auto) 0.0 % 0.2 % Basophils (%) (Auto) 0.0 % 0.2 % Neutrophils # (Auto) 9.4 TH/MM3 10.5 TH/MM3 Lymphocytes # (Auto) 0.2 TH/MM3 0.1 TH/MM3 Monocytes # (Auto) 0.2 TH/MM3 0.2 TH/MM3 Eosinophils # (Auto) 0.0 TH/MM3 0.0 TH/MM3 Basophils # (Auto) 0.0 TH/MM3 0.0 TH/MM3 CBC Comment DIFF FINAL AUTO DIFF Differential Comment AUTO DIFF CONFIRMED Ovalocytes 1+ Laboratory Tests Test 10/18/17 06:25 10/19/17 05:45 Blood Urea Nitrogen 20 MG/DL 20 MG/DL Creatinine 0.97 MG/DL 0.92 MG/DL Random Glucose 120 MG/DL 132 MG/DL Total Protein 6.0 GM/DL 6.0 GM/DL Albumin 2.5 GM/DL 2.4 GM/DL Calcium Level 8.5 MG/DL 8.5 MG/DL Alkaline Phosphatase 102 U/L 107 U/L Aspartate Amino Transf (AST/SGOT) 47 U/L 41 U/L Alanine Aminotransferase (ALT/SGPT) 179 U/L 141 U/L Total Bilirubin 0.4 MG/DL 0.4 MG/DL Sodium Level 129 MEQ/L 131 MEQ/L Potassium Level 4.2 MEQ/L 4.7 MEQ/L Chloride Level 99 MEQ/L 100 MEQ/L Carbon Dioxide Level 23.0 MEQ/L 23.8 MEQ/L Anion Gap 7 MEQ/L 7 MEQ/L Estimat Glomerular Filtration Rate 56 ML/MIN 60 ML/MIN Microbiology Date/Time Source Procedure Growth Status 10/17/17 17:35 Bronchial Washings Left Lower Lobe Fungal Smear - Final NO FUNGAL ELEMENTS SEEN. Resulted 10/17/17 17:35 Bronchial Washings Left Lower Lobe Fungal Culture Pending Resulted 10/17/17 17:35 Bronchial Washings Left Lower Lobe Acid Fast Stain - Final NO ACID FAST BACILLI SEEN Resulted 10/17/17 17:35 Bronchial Washings Left Lower Lobe Mycobacterial Culture Pending Resulted 10/17/17 17:35 Bronchial Washings Left Lower Lobe Gram Stain - Final Complete 10/17/17 17:35 Bronchial Washings Left Lower Lobe Bronchial Culture - Final NO GROWTH IN 48 HOURS. Complete Imaging Last Impressions Liver Ultrasound 10/12/17 0000 Signed Impressions: Service Date/Time: Thursday, October 12, 2017 08:51 - CONCLUSION: Hepatic steatosis. Prior cholecystectomy. Atrophic right kidney. Cuong Quintero Jr., MD CT Angiography 10/11/17 1415 Signed Impressions: Service Date/Time: Wednesday, October 11, 2017 15:00 - CONCLUSION: 1. No pulmonary embolus. 2. However, there is a reticulonodular pattern in both lower lobes, left greater than right with areas characteristic of a tree in bud pattern suggesting atypical infection such as SHALOM. 3. Nodular like area is predominantly an interstitial process in a deshaun-fissural distribution posteriorly in the right upper lobe and probably postinflammatory. I would recommend a followup noncontrasted CT scan of the chest in 3 months to ensure stability/resolution, Jacinto Pack MD Chest X-Ray 10/11/17 0000 Signed Impressions: Service Date/Time: Wednesday, October 11, 2017 22:32 - CONCLUSION: 1. Mild basilar airspace disease, left greater than right. Differential diagnosis includes a mild bronchopneumonia. No effusion or pneumothorax. James Harrison MD Physical Exam GENERAL: This is a well-nourished, well-developed patient, in no apparent distress. SKIN: No rashes, ecchymoses or lesions. Cool and dry. HEAD: Atraumatic. Normocephalic. No temporal or scalp tenderness. EYES: Pupils equal round and reactive. Extraocular motions intact. No scleral icterus. No injection or drainage. ENT: Nose without bleeding, purulent drainage or septal hematoma. Throat without erythema, tonsillar hypertrophy or exudate. Uvula midline. Airway patent. NECK: Trachea midline. Supple, nontender, no meningeal signs. CARDIOVASCULAR: HS audible. RESPIRATORY: Wheezing bilaterally. Breath sounds equal bilaterally. GASTROINTESTINAL: Abdomen soft, non-tender, nondistended. Obese. MUSCULOSKELETAL: Extremities without clubbing, cyanosis, or edema. No joint tenderness, effusion, or edema noted. No calf tenderness. Negative Homans sign bilaterally. NEUROLOGICAL: Awake and alert. Non focal exam. Psych cooperative IV line sites with no e.o infection Assessment & Plan Remarks Pneumonia CAP vs atypical Tree in bud appearance on CT chest ? SHALOM COPD with acute exacerbation. CAD with Atrial fibrillation s/p ablation h/o GERD h/o Anemia s/p capsule endoscopy ? small intestine bleeder per pt description Recs DC Cefepime IV Continue Azithro recommend additional 5 days on discharge. Start Diflucan oral recommend 5 days D.w pt to rinse mouth after each use of Budesonide spray. Walk test to determine need for O2 on discharge. Update provided to patient and spouse: AFB and fungal cultures pending. ordered and will follow them. If any of those tests positive will need Referral to Dr.Reba Newberry as outpatient. Follow cultures Follow clinically. d.w . Will sign off please call back if any change in clinical condition or questions. Emily Merida MD Oct 19, 2017 13:42
[2017-10-19] MEDS: FLUCONAZOLE 100 MG TAB PO SCH (14:58)
[2017-10-19] MEDS ORDERED: WARFARIN SOD 10 MG TAB PO ONE (16:00)
--- NOTE | 2017-10-19 19:00 | HHI.PR ---
Subjective Remarks 72 YOWF with COPD exac, Bilat infilt Had bronch done Feels better Less congested Bronch cultures, cytology negative Objective Vital Signs Vital Signs Date Time Temp Pulse Resp B/P (MAP) Pulse Ox O2 Delivery O2 Flow Rate FiO2 10/19/17 18:45 94 10/19/17 16:01 98.4 95 20 160/74 (102) 94 10/19/17 15:16 95 10/19/17 14:55 18 10/19/17 14:46 84 91/55 (67) 10/19/17 12:01 98.3 97 21 152/76 (101) 97 10/19/17 10:00 96 10/19/17 08:02 98.5 91 19 156/73 (100) 100 10/19/17 07:44 98 Nasal Cannula 1.00 10/19/17 07:16 Nasal Cannula 2.00 10/19/17 05:00 98.1 95 18 139/65 (89) 96 10/19/17 04:14 90 10/19/17 00:25 106 10/19/17 00:00 98.0 97 18 150/81 (104) 93 10/18/17 20:38 99 10/18/17 20:00 95 Nasal Cannula 2.00 Humidified 10/18/17 19:50 97.9 99 18 148/69 (95) 95 I/O 10/18/17 10/18/17 10/18/17 10/19/17 10/19/17 10/19/17 07:00 15:00 23:00 07:00 15:00 23:00 Intake Total 580 ml 100 ml 610 ml 440 ml 100 ml Balance 580 ml 100 ml 610 ml 440 ml 100 ml Intake Oral 480 ml 360 ml 240 ml IV Total 100 ml 100 ml 250 ml 200 ml 100 ml # Voids 2 5 3 4 # Bowel Movements 0 0 0 Result Diagram: 10/19/1754410/19/17544 Objective Remarks GENERAL: WBWN WF, mild sob SKIN: Warm and dry. HEAD: Normocephalic. EYES: No scleral icterus. No injection or drainage. NECK: Supple, trachea midline. No JVD or lymphadenopathy. CARDIOVASCULAR: Regular rate and rhythm without murmurs, gallops, or rubs. RESPIRATORY: Breath sounds equal bilaterally. No accessory muscle use. Exp rhonchi GASTROINTESTINAL: Abdomen soft, non-tender, nondistended. MUSCULOSKELETAL: No cyanosis, or edema. BACK: Nontender without obvious deformity. No CVA tenderness. A/P Assessment and Plan COPD Exac Bilat reticulonodular infilt, r/o SHALOM AF CAD H/O ca breast PLAN: Aerosol nebs Cont Abx Robitussin AC cough syp OOB and ambulate DC plans for home Will need home Brice Peters MD Oct 19, 2017 19:00
[2017-10-19] MEDS: predniSONE 20 MG TAB PO SCH (19:48)
[2017-10-19] MEDS: GABAPENTIN 300 MG CAP PO SCH (19:48)
[2017-10-19] MEDS ORDERED: predniSONE 20 MG TAB PO SCH (21:00)
[2017-10-20] VITALS: PULSE 92
[2017-10-20] MEDS: RESP: ALBUTEROL 2.5 MG/IPRATROPIUM 0.5 MG NEB (SCH) NEB ×4 (01:05→12:00)
[2017-10-20 04:00] VITALS: PULSE 114
[2017-10-20] MEDS: LEVOTHYROXINE SODIUM 100 MCG TAB PO SCH (04:16)
[2017-10-20] MEDS: guaiFENesin/DEXTROMETHORPHAN 200 MG/20 MG/10 ML CUP PO PRN ×2 (04:16→08:25)
[2017-10-20] MEDS: ACETAMINOPHEN/CODEINE 300 MG/30 MG TAB PO PRN ×2 (04:17→08:25)
[2017-10-20 05:50] VITALS: BP 166/84; PULSE 100; RESP 18; TEMP 98.1; O2SAT 94
[2017-10-20 08:00] VITALS: BP 156/82; PULSE 118; PULSE 88; PULSE 95; RESP 20; TEMP 98.2; O2SAT 95
[2017-10-20 08:12] VITALS: O2SAT 94
[2017-10-20] MEDS: NYSTAT/DIPHENHY/LIDO MOUTHWASH (Adult) 120ML SWISH-SWAL SCH ×2 (08:15→12:45)
[2017-10-20] MEDS: LISINOPRIL 20 MG TAB PO SCH (08:16)
[2017-10-20] MEDS: PANTOPRAZOLE SOD 20 MG DELAYED RELEASE TAB PO SCH (08:16)
[2017-10-20] MEDS: DILTIAZEM-CD 180 MG CAP ER PO SCH (08:16)
[2017-10-20] MEDS: DULoxetine HCl DR 60 MG CAP PO SCH (08:17)
[2017-10-20] MEDS: predniSONE 20 MG TAB PO SCH (08:17)
[2017-10-20] MEDS: FLUCONAZOLE 100 MG TAB PO SCH (08:17)
[2017-10-20] MEDS: AZITHROMYCIN 250 MG TAB PO SCH (08:17)
[2017-10-20] MEDS: BUDESONIDE-FORMOTEROL 160/4.5 MCG INHALER INH SCH (08:19)
[2017-10-20] MEDS: SODIUM CHLORIDE 0.9% FLUSH 10 ML FLUSH IV FLUSH SCH (08:26)
[2017-10-20] MEDS ORDERED: TIOTROPIUM BROMIDE 18 MCG INH INH SCH (09:00)
[2017-10-20 09:29] LABS: INTERNATIONAL NORMALIZED RATIO 2.9 RATIO; PROTHROMBIN TIME - PATIENT 29.4 SEC (9.8-11.6)
[2017-10-20 12:00] VITALS: BP 159/64; PULSE 89; PULSE 96; RESP 20; TEMP 98.3; O2SAT 95
--- NOTE | 2017-10-20 12:27 | HHI.PR ---
Subjective Remarks generally feeling better except for soreness of the throat Objective Vitals Vital Signs Date Time Temp Pulse Resp B/P (MAP) Pulse Ox O2 Delivery O2 Flow Rate FiO2 10/20/17 08:12 94 10/20/17 08:00 98.2 95 20 156/82 (106) 95 10/20/17 08:00 118 10/20/17 07:15 Nasal Cannula 3.00 10/20/17 05:50 98.1 100 18 166/84 (111) 94 10/20/17 04:00 114 10/20/17 04:00 Nasal Cannula 3.00 10/20/17 00:00 92 10/20/17 00:00 Nasal Cannula 3.00 10/19/17 23:38 98.0 102 18 156/74 (101) 92 10/19/17 21:06 97 10/19/17 20:02 107 10/19/17 20:00 Nasal Cannula 3.00 10/19/17 19:37 98.3 103 20 158/79 (105) 94 10/19/17 18:45 94 10/19/17 16:01 98.4 95 20 160/74 (102) 94 10/19/17 15:16 95 10/19/17 14:55 18 10/19/17 14:46 84 91/55 (67) I/O 10/19/17 10/19/17 10/19/17 10/20/17 10/20/17 10/20/17 07:00 15:00 23:00 07:00 15:00 23:00 Intake Total 440 ml 100 ml 480 ml 830 ml Balance 440 ml 100 ml 480 ml 830 ml Intake Oral 240 ml 480 ml 830 ml IV Total 200 ml 100 ml # Voids 3 4 3 # Bowel Movements 0 0 0 Result Diagram: 10/19/17 0545 10/19/17 0545 Imaging Last Impressions Chest X-Ray 10/17/17 0000 Signed Impressions: Service Date/Time: Tuesday, October 17, 2017 18:15 - CONCLUSION: 1. Perihilar infiltrates suggestive of mild pulmonary vascular congestion versus pneumonia. Clinical correlation is recommended. 2. Mild cardiomegaly. Zane Bassett MD Liver Ultrasound 10/12/17 0000 Signed Impressions: Service Date/Time: Thursday, October 12, 2017 08:51 - CONCLUSION: Hepatic steatosis. Prior cholecystectomy. Atrophic right kidney. Cuong Quintero Jr., MD CT Angiography 10/11/17 1415 Signed Impressions: Service Date/Time: Wednesday, October 11, 2017 15:00 - CONCLUSION: 1. No pulmonary embolus. 2. However, there is a reticulonodular pattern in both lower lobes, left greater than right with areas characteristic of a tree in bud pattern suggesting atypical infection such as SHALOM. 3. Nodular like area is predominantly an interstitial process in a deshaun-fissural distribution posteriorly in the right upper lobe and probably postinflammatory. I would recommend a followup noncontrasted CT scan of the chest in 3 months to ensure stability/resolution, Jacinto Pack MD Objective Remarks awake and alert, oriented x 3 skin with superficial ecchymoses anicteric, throat no erythema, = sores on the tongue no nuchal rigidity lungs- no wheezes, no rales regular rhythm abdomen-globularly soft, nontender extremities no edema, no calf swelling or tenderness neuro exam non focal Procedures 10/17- bronchoscopy- no endobronchial lesion identified, + lots of yellowish mucus secretions suctioned A/P Assessment and Plan 72 years old female Pneumonia. Failed outpatient. Possibly atypical. With history of recent leprosy treatment for her . No active lesions on her skin or husbands. S/P bronchoscopy 10/18- no endobronchial lesions identified, + lots of mucus secretions suctioned HYperreactive Airway disease- secondary to pneumonic process-- no more wheezes on exam S/P IV abx Azithromycin/cefepime. Renew nebulization treatment- give q 4 RTC Continue on IV solumedrol - - changed to po Prednisone-- taper to 20 mg bid ff Cultures including sputum cultures/AFB cultures from bronchoscopy Pulm ff./ ID specialist ff along with us Symptomatic treatment of cough with Robitussin/codeine. walk test prior to DC if qualifies- good sats ambulating at room air DC on zithromax and Diflucan for 4 more days per ID recommendations Acute transaminitis. -likely related to infection and medications Monitor LFTs- currently on zithromax DC norco- use oxycodone on its own Liver US noted- unremarkable, hepatitis profile negative GI ff- OP ff up AFP level, ROSALEE, AMA, ASMA, Hepatitis profile, Ferritin, Iron saturation, Ceruloplasmin, Alpha 1 Antitrypsin- pending History of GERD continue on PPI bid HTN Afib- s/p ablation in 1995, dec 2016- INR 2.9 today continue on Cardizem CD 180 mg bid, LIsinopril 20 mg daily restart Coumadin- as OP on 2.5 mg M and F, rest of the week on 2 mg INR in am- as OP- results to PCP and Dr. Nerissa BENNETT -with CKD- GFR 40 at baseline - due to NSAID induced nephropathy MIld hyponatremia- asymptomatic ff electrolytes renal functions improved Hypothyroidism on Synthroid H/o breast cancer- left side- s/p chemo and s/p radiation, s/p lumpectomy- finished treatment in 2013 Anemia- appears chronic- H and H stable Recent diagnosis of intestinal polyp with mild GI bleeding by capsule endoscopy as OP Planned for removal at [facility] next week. Oral thrush/Tongue sores symptomatic treatment with Magic mouthwash qid on Dilfucan DVT prophylaxis on Coumadin. GI prophylaxis on pantoprazole. Discussed Condition With Patient, and daughter at bedside Increase activity- up and ambulate around the room as tolerated DC plan: Pending improvement, work up in progress. Resumed anticoagulation thereafter. Dc when improved and cleared by consultants Cleo Sanders MD Oct 20, 2017 12:27
[2017-10-20] MEDS ORDERED: DIFL100T PO (12:39)
[2017-10-20] MEDS ORDERED: Albuterol-Ipratropium Neb NEB (12:39)
[2017-10-20] MEDS ORDERED: AZIT250T3 PO (12:39)
[2017-10-20] MEDS ORDERED: Budeson-Formot 160-4.5 Mcg Inh INH (12:39)
[2017-10-20] MEDS ORDERED: NEBULIZER1 MI1 NEB (12:41)
[2017-10-20] MEDS ORDERED: OXYC-392 PO (12:43)
[2017-10-20] MEDS ORDERED: MAGICADU2 SWISH-SWAL (12:43)
[2017-10-20] MEDS ORDERED: PRED20 PO (12:44)
--- NOTE | 2017-10-20 12:54 | HHI.DS ---
Discharge Summary Admission Date Oct 11, 2017 at 16:20 Discharge Date: Oct 20, 2017 Admitting Diagnosis atypical pneumonia (1) Pneumonia ICD Code: J18.9 - Pneumonia, unspecified organism Diagnosis: Principal (2) COPD (chronic obstructive pulmonary disease) ICD Code: J44.9 - COPD (chronic obstructive pulmonary disease) Diagnosis: Principal (3) Transaminitis ICD Code: R74.0 - Nonspecific elevation of levels of transaminase and lactic acid dehydrogenase [LDH] Diagnosis: Principal Procedures 10/17- bronchoscopy- no endobronchial lesion identified, + lots of yellowish mucus secretions suctioned Brief History - From Admission History from patient, at the bedside, ER communication, review of medical records. Patient reported that she was coughing constantly and started getting short of breath starting . She reports the cough is productive of yellowish sputum. Denies fever at home. That does have muscle aches throughout. She presented to [facility] emergency room yesterday October 10, 2017. She was treated with steroids, azithromycin for pneumonia. Patient states that her dyspnea and cough is not improving at all after taking all the above treatment. Has been at the bedside stated patient was not able to walk from the bed to the bathroom without significant dyspnea. Therefore they returned to the hospital. Patient has history of A. fib for which she had ablation in 1995 and every of 2016. However denies any episodes of significant tachycardia. Denies any prior history of CHF. Reports she has had echocardiograms yearly. Follows up with Dr. Pickett Also denies any prior history of asthma/COPD/emphysema. She has had PFT studies in June 2017 which was within it. She did travel to [place] or during with a 5 [address] ride during which she takes breaks. She is on Coumadin at home with INR of 2.2. She also traveled to [place] by plane a week prior. History of anemia with positive guaiac done as an outpatient. Therefore she was referred for colonoscopy by Dr. Wheeler which was negative. She then had capsule endoscopy which shows small intestinal polyp. She has appointment for removal of this polyp next Tuesday at [facility]. She cancelled for it due to this acute dyspnea. Of note is that patient's was recently diagnosed with leprosy through multiple skin biopsies. He follows up at a clinic in [place]. He does have exposure to [place] from which he got this. He was treated with clarithromycin and rifampin. Stated the treatment is for a total of 2 years and he has been on meds for about 6 months now. CBC/BMP: 10/19/17 0545 10/19/17 0545 Significant Findings Laboratory Tests Test 10/18/17 06:25 10/19/17 05:45 10/20/17 08:51 Red Blood Count 3.36 MIL/MM3 (4.00-5.30) 3.30 MIL/MM3 (4.00-5.30) Hemoglobin 10.1 GM/DL (11.6-15.3) 9.8 GM/DL (11.6-15.3) Hematocrit 30.0 % (35.0-46.0) 29.2 % (35.0-46.0) Red Cell Distribution Width 17.3 % (11.6-17.2) 17.6 % (11.6-17.2) Neutrophils (%) (Auto) 96.0 % (16.0-70.0) 96.7 % (16.0-70.0) Lymphocytes (%) (Auto) 1.8 % (9.0-44.0) 1.2 % (9.0-44.0) Neutrophils # (Auto) 9.4 TH/MM3 (1.8-7.7) 10.5 TH/MM3 (1.8-7.7) Lymphocytes # (Auto) 0.2 TH/MM3 (1.0-4.8) 0.1 TH/MM3 (1.0-4.8) Blood Urea Nitrogen 20 MG/DL (7-18) 20 MG/DL (7-18) Random Glucose 120 MG/DL (74-106) 132 MG/DL (74-106) Total Protein 6.0 GM/DL (6.4-8.2) 6.0 GM/DL (6.4-8.2) Albumin 2.5 GM/DL (3.4-5.0) 2.4 GM/DL (3.4-5.0) Aspartate Amino Transf (AST/SGOT) 47 U/L (15-37) 41 U/L (15-37) Alanine Aminotransferase (ALT/SGPT) 179 U/L (10-53) 141 U/L (10-53) Sodium Level 129 MEQ/L (136-145) 131 MEQ/L (136-145) Estimat Glomerular Filtration Rate 56 ML/MIN (>89) 60 ML/MIN (>89) Ovalocytes 1+ (NORMAL) Prothrombin Time 29.4 SEC (9.8-11.6) Imaging Last Impressions Chest X-Ray 10/17/17 0000 Signed Impressions: Service Date/Time: Tuesday, October 17, 2017 18:15 - CONCLUSION: 1. Perihilar infiltrates suggestive of mild pulmonary vascular congestion versus pneumonia. Clinical correlation is recommended. 2. Mild cardiomegaly. Zane Bassett MD Liver Ultrasound 10/12/17 0000 Signed Impressions: Service Date/Time: Thursday, October 12, 2017 08:51 - CONCLUSION: Hepatic steatosis. Prior cholecystectomy. Atrophic right kidney. Cuong Quintero Jr., MD CT Angiography 10/11/17 1415 Signed Impressions: Service Date/Time: Wednesday, October 11, 2017 15:00 - CONCLUSION: 1. No pulmonary embolus. 2. However, there is a reticulonodular pattern in both lower lobes, left greater than right with areas characteristic of a tree in bud pattern suggesting atypical infection such as SHALOM. 3. Nodular like area is predominantly an interstitial process in a deshaun-fissural distribution posteriorly in the right upper lobe and probably postinflammatory. I would recommend a followup noncontrasted CT scan of the chest in 3 months to ensure stability/resolution, Jacinto Pack MD PE at Discharge awake and alert, oriented x 3 skin with superficial ecchymoses anicteric, throat no erythema, = sores on the tongue no nuchal rigidity lungs- no wheezes, no rales regular rhythm abdomen-globularly soft, nontender extremities no edema, no calf swelling or tenderness neuro exam non focal Pt update on day of discharge afebrile good sats at room air still having throat discomfort sores on the tongue- but not inflammed swallowing well wants to go home d/w her if perisst- call PCP and GI for appt Hospital Course 72 years old female Pneumonia. Failed outpatient. Possibly atypical. With history of recent leprosy treatment for her . No active lesions on her skin or husbands. S/P bronchoscopy 10/18- no endobronchial lesions identified, + lots of mucus secretions suctioned HYperreactive Airway disease- secondary to pneumonic process-- no more wheezes on exam S/P IV abx Azithromycin/cefepime. Renew nebulization treatment- give q 4 RTC Continue on IV solumedrol - - changed to po Prednisone-- taper to 20 mg bid ff Cultures including sputum cultures/AFB cultures from bronchoscopy Pulm ff./ ID specialist ff along with us Symptomatic treatment of cough with Robitussin/codeine. walk test prior to DC if qualifies- good sats ambulating at room air DC on zithromax and Diflucan for 4 more days per ID recommendations Acute transaminitis. -likely related to infection and medications Monitor LFTs- currently on zithromax DC norco- use oxycodone on its own Liver US noted- unremarkable, hepatitis profile negative GI ff- OP ff up AFP level, ROSALEE, AMA, ASMA, Hepatitis profile, Ferritin, Iron saturation, Ceruloplasmin, Alpha 1 Antitrypsin- pending History of GERD continue on PPI bid HTN Afib- s/p ablation in 1995, dec 2016- INR 2.9 today continue on Cardizem CD 180 mg bid, LIsinopril 20 mg daily restart Coumadin- as OP on 2.5 mg M and F, rest of the week on 2 mg INR in am- as OP- results to PCP and Dr. Nerissa BENNETT -with CKD- GFR 40 at baseline - due to NSAID induced nephropathy MIld hyponatremia- asymptomatic ff electrolytes renal functions improved Hypothyroidism on Synthroid H/o breast cancer- left side- s/p chemo and s/p radiation, s/p lumpectomy- finished treatment in 2013 Anemia- appears chronic- H and H stable Recent diagnosis of intestinal polyp with mild GI bleeding by capsule endoscopy as OP Planned for removal at [facility] next week. Oral thrush/Tongue sores symptomatic treatment with Magic mouthwash qid on Dilfucan DVT prophylaxis on Coumadin. GI prophylaxis on pantoprazole. Pt Condition on Discharge: Stable Discharge Disposition: Discharge Home Discharge Time: <= 30 minutes Discharge Instructions DIET: Follow Instructions for: Heart Healthy Diet Speech Therapy-Diet Recommends: Regular Activities you can perform: Weight Bearing as Philip Follow up Referrals: Cardiology - 3-5 Days with [facility] - 3-5 Days with Kvng Williamson MD PCP Follow-up - 2-3 Days with [facility] - 3-5 Days with Brice Posada MD New Orders: PT/INR - 10/21/17 New Medications: Nebulizer (Nebulizer) 1 Mis Mis EA NEB DIRECTED- qid for Breathing Treatment, #1 0 Refills Azithromycin (Azithromycin) 250 Mg Tab 500 MG PO DAILY for SHALOM for 4 Days, #8 TAB Fluconazole (Diflucan) 100 Mg Tab 100 MG PO DAILY for ROSIBEL for 4 Days, #4 TAB Jpzecpwz-Gnnogeoluopndsd-Qubaiddws Liq (Magic Mouthwash Adult Liq) 120 Ml Susp 10 ML SWISH-SWAL QID for oralcand for 10 Days, ML Oxycodone (Oxycodone) 5 Mg Tab 5 MG PO Q6H PRN for pain >5 for 10 Days, #40 TAB Prednisone (Prednisone) 20 Mg Tab 20 MG PO BID for COPD for 5 Days, #10 TAB [Albuterol-Ipratropium Neb] () 1 AMPULE NEBU 1 AMPULE NEB Q6HR for HAD [Budeson-Formot 160-4.5 Mcg Inh] () 60 PUFF AERO 2 PUFF INH Q12HR for COPD for 30 Days, #2 gargle after each use religiously Continued Medications: Carisoprodol (Soma) 350 Mg Tab 350 MG PO Q6H PRN for PAIN, TAB 0 Refills Clorazepate (Tranxene T) 7.5 Mg Tab 3.75 MG PO BID PRN for Anxiety, TAB 0 Refills Diltiazem ER 24 HR (Diltiazem ER 24 HR) 180 Mg Caper 180 MG PO BID for Angina, CAP Duloxetine DR (Cymbalta DR) 60 Mg Capdr 60 MG PO DAILY, #30 CAP 0 Refills Gabapentin (Neurontin) 600 Mg Tab 600 MG PO HS, #30 TAB 0 Refills Lisinopril (Lisinopril) 20 Mg Tab 20 MG PO DAILY, #30 TAB 0 Refills Metoprolol Tartrate (Metoprolol Tartrate) 25 Mg Tab 25 MG PO DAILY PRN for RAPID HEART RATE, #30 TAB 0 Refills Omeprazole (Omeprazole) 20 Mg Tab 20 MG PO BID, #30 TAB 0 Refills Warfarin (Coumadin) 2 Mg Tab 2 MG PO DAILY for Prevent Blood Clot, #30 TAB 0 Refills Discontinued Medications: Azithromycin (Zithromax Z-Kane) 250 Mg Dspk 250 MG PO DIRECTED for Infection, #1 DSPK 0 Refills 500 MG (2 tabs) day 1, then 1 tab days 2-5. Benzonatate (Benzonatate) 200 Mg Cap 200 MG PO TID PRN for COUGH, #21 CAP 0 Refills Diclofenac Sodium (Voltaren) 1 % Gel..gram. 1 APPLIC TOPICAL PRN for PAIN Hydrocodone-Acetaminophen (Vicodin Es) 7.5-300 Tab 1 TAB PO Q4H PRN for PAIN, TAB 0 Refills Prednisone (Prednisone) 20 Mg Tab 40 MG PO DAILY, #10 TAB 0 Refills Take 40 mg (2 tablets) daily for 5 days Cleo Sanders MD Oct 20, 2017 12:54
--- NOTE | 2017-10-20 13:51 | HHI.FF ---
Face to Face Verification Diagnosis: (1) PNU (2) Atrial fibrillation with RVR (3) Transaminitis (4) Paroxysmal a-fib Physical Therapy Order: Evaluate and Treat, Improve ambulation, Strength and gait training Occupational Therapy Order: Improve ADL Home Health Nursing Order: Medical education Signs/symptoms of disease process Diabetic education [facility] Order: To Evaluate: Living conditions/environment, Support services Order: To Provide: Community services I have seen patient Anila Riser Allred on 10/20/17. My clinical findings support the need for the requested home health care services because: Ltd mobility - disease progression Deconditioned w/ increased weakness Need for psychosocial assistance Infection w/ risk of complications I certify that my clinical findings support that this patient is homebound because: Need for psychosocial assistance Poor cardiac reserve Cleo Sanders MD Oct 20, 2017 13:51
[2017-10-20] MEDS ORDERED: ACET1TAB94 PO (13:58)
[2017-10-20] MEDS ORDERED: SPIRCAP INH (13:59)
[2017-10-20] MEDS ORDERED: predniSONE 20 MG TAB PO SCH (21:00)
== END 2017-10-20 14:30 | disposition home health service (06) | DRG 194 ==
LOC: NEPC 13:17 → NEDA 16:20 → N04B 17:22 → N04A 22:34
PROVIDERS: ADMIT Internal Medicine; ATTEND Internal Medicine
PROC: 3E0F7GC Introduction of Other Therapeutic Substance into Respiratory Tract, Via Natural or Artificial Opening (ICD-10-PCS; 2017-10-11)
PROC: 0BC48ZZ Extirpation of Matter from Right Upper Lobe Bronchus, Via Natural or Artificial Opening Endoscopic (ICD-10-PCS; 2017-10-17)
PROC: 0BC58ZZ Extirpation of Matter from Right Middle Lobe Bronchus, Via Natural or Artificial Opening Endoscopic (ICD-10-PCS; 2017-10-17)
PROC: 0BC68ZZ Extirpation of Matter from Right Lower Lobe Bronchus, Via Natural or Artificial Opening Endoscopic (ICD-10-PCS; 2017-10-17)
PROC: 0BCB8ZZ Extirpation of Matter from Left Lower Lobe Bronchus, Via Natural or Artificial Opening Endoscopic (ICD-10-PCS; 2017-10-17)
PROC: 0BDJ8ZX Extraction of Left Lower Lung Lobe, Via Natural or Artificial Opening Endoscopic, Diagnostic (ICD-10-PCS; 2017-10-17)
PROC: 0BC98ZZ Extirpation of Matter from Lingula Bronchus, Via Natural or Artificial Opening Endoscopic (ICD-10-PCS; principal; 2017-10-17 17:06)
DX: J18.9 Pneumonia, unspecified organism (principal); J44.1 Chronic obstructive pulmonary disease with (acute) exacerbation; N17.9 Acute kidney failure, unspecified; B37.0 Candidal stomatitis; J44.0 Chronic obstructive pulmonary disease with (acute) lower respiratory infection; K76.0 Fatty (change of) liver, not elsewhere classified; E87.1 Hypo-osmolality and hyponatremia; I48.91 Unspecified atrial fibrillation; E78.5 Hyperlipidemia, unspecified; R79.1 Abnormal coagulation profile; E03.9 Hypothyroidism, unspecified; K21.9 Gastro-esophageal reflux disease without esophagitis; I25.10 Atherosclerotic heart disease of native coronary artery without angina pectoris; I12.9 Hypertensive chronic kidney disease with stage 1 through stage 4 chronic kidney disease, or unspecified chronic kidney disease; N18.9 Chronic kidney disease, unspecified; I25.2 Old myocardial infarction; Z92.3 Personal history of irradiation; Z92.21 Personal history of antineoplastic chemotherapy; Z85.3 Personal history of malignant neoplasm of breast; Z80.1 Family history of malignant neoplasm of trachea, bronchus and lung; Z82.49 Family history of ischemic heart disease and other diseases of the circulatory system; Z87.891 Personal history of nicotine dependence; Z90.49 Acquired absence of other specified parts of digestive tract; Z79.01 Long term (current) use of anticoagulants; D64.9 Anemia, unspecified; T39.395A Adverse effect of other nonsteroidal anti-inflammatory drugs [NSAID], initial encounter; M19.90 Unspecified osteoarthritis, unspecified site; R06.2 Wheezing
CPT/HCPCS: 71010; 71275; 76000; 76705; 80048; 80053; 80074; 82103; 82105; 82390; 82728; 82784; 83516; 83520; 83540; 83550; 85025; 85610; 85730; 86038; 86255; 87015; 87040; 87070; 87102; 87116; 87205; 87206; 87449; 88112; 88305; 93005; 94620; 94640; 94664; 99285; J0171; J0456; J0692; J1650; J2920; J7050; J7512; Q9967

== ENCOUNTER → 2017-10-21 | Outpatient (CLI) | payer MEDICARE ==
[~2017-10-21] MED LIST changes: +ACET1TAB94 PO; +AZIT250T3 PO; +Albuterol-Ipratropium Neb NEB; -BENZ1CAP51 PO; +Budeson-Formot 160-4.5 Mcg Inh INH; -CARD120T4 PO; -CHLO7.5 PO; +DIFL100T PO; +DILT180C7 PO; -HYDR-3113 PO; +MAGICADU2 SWISH-SWAL; +NEBULIZER1 MI1 NEB; +SPIRCAP INH; -VOLT1GEL16 TOPICAL; -ZITHTAB PO
[2017-10-21 11:14] LABS: INTERNATIONAL NORMALIZED RATIO 3.5 RATIO; PROTHROMBIN TIME - PATIENT 34.8 SEC (9.8-11.6)
== END ==
LOC: PLAB 09:36
PROVIDERS: ATTEND Internal Medicine Interventional Cardiology
DX: I48.0 Paroxysmal atrial fibrillation (principal); Z79.01 Long term (current) use of anticoagulants
CPT/HCPCS: 36415; 85610

== ENCOUNTER → 2017-10-24 | Outpatient (CLI) | payer MEDICARE ==
[2017-10-24 09:17] LABS: BASOPHIL % 0.4 % (0.0-2.0); EOSINOPHIL % 0.1 % (0.0-4.0); HEMATOCRIT 31.5 % (35.0-46.0); HEMO FLAGS DIFF FINAL; LYMPH % 6.4 % (9.0-44.0); LYMPHOCYTE # 0.6 TH/MM3 (1.0-4.8); MEAN CELL VOLUME 89.6 FL (80.0-100.0); MEAN CORPUSCULAR HEMOGLOBIN 29.2 PG (27.0-34.0); MEAN CORPUSCULAR HGB CONC 32.5 % (32.0-36.0); MONO % 6.2 % (0.0-8.0); NEUT % 86.9 % (16.0-70.0); PLATELET COUNT 310 TH/MM3 (150-450); RED BLOOD COUNT 3.51 MIL/MM3 (4.00-5.30); RED CELL DISTRIBUTION WIDTH 18.3 % (11.6-17.2); WHITE BLOOD COUNT 9.2 TH/MM3 (4.0-11.0)
[2017-10-24 09:46] LABS: ANION GAP 8 MEQ/L (5-15); AST (GOT) 43 U/L (15-37); BLOOD UREA NITROGEN 15 MG/DL (7-18); CHLORIDE 102 MEQ/L (98-107); GLOMERULAR FILTRATION RATE 47 ML/MIN (>89); GLUCOSE,FASTING 86 MG/DL (74-99); SODIUM (NA) 138 MEQ/L (136-145)
[2017-10-24 09:57] LABS: ALKALINE PHOSPHATASE 112 U/L (45-117); ALT (GPT) 126 U/L (10-53); HDL CHOLESTEROL 93.8 MG/DL (40.0-60.0); LDL CHOLESTEROL 106 MG/DL (0-99); TOTAL BILIRUBIN ADULT 0.5 MG/DL (0.2-1.0)
== END ==
LOC: PLAB 07:13
PROVIDERS: ATTEND Family Medicine
DX: I10 Essential (primary) hypertension (principal); E03.9 Hypothyroidism, unspecified
CPT/HCPCS: 36415; 80053; 80061; 84439; 84443; 85025

== ENCOUNTER → 2017-11-16 | Outpatient (CLI) | payer MEDICARE ==
[2017-11-16 10:12] LABS: ALBUMIN 3.1 GM/DL (3.4-5.0); AST (GOT) 21 U/L (15-37); BICARBONATE 22.1 MEQ/L (21.0-32.0); BLOOD UREA NITROGEN 12 MG/DL (7-18); CALCIUM 8.9 MG/DL (8.5-10.1); CHLORIDE 111 MEQ/L (98-107); CREATININE 1.04 MG/DL (0.50-1.00); GLOMERULAR FILTRATION RATE 52 ML/MIN (>89); GLUCOSE,FASTING 103 MG/DL (74-99); SODIUM (NA) 143 MEQ/L (136-145)
[2017-11-16 10:15] LABS: ALKALINE PHOSPHATASE 98 U/L (45-117); ALT (GPT) 33 U/L (10-53); TOTAL BILIRUBIN ADULT 0.3 MG/DL (0.2-1.0); TOTAL PROTEIN 6.9 GM/DL (6.4-8.2)
== END ==
LOC: PLAB 07:00
PROVIDERS: ATTEND Family Medicine
DX: R74.8 Abnormal levels of other serum enzymes (principal)
CPT/HCPCS: 36415; 80053

== ENCOUNTER → 2017-11-24 | Outpatient (CLI) | payer MEDICARE ==
[2017-11-24 09:25] LABS: INTERNATIONAL NORMALIZED RATIO 1.3 RATIO; PROTHROMBIN TIME - PATIENT 13.6 SEC (9.8-11.6)
== END ==
LOC: PLAB 07:21
PROVIDERS: ATTEND Internal Medicine Interventional Cardiology
DX: I48.0 Paroxysmal atrial fibrillation (principal); Z79.01 Long term (current) use of anticoagulants
CPT/HCPCS: 36415; 85610

== ENCOUNTER → 2017-12-07 | Outpatient (CLI) | payer MEDICARE ==
[2017-12-07 17:09] LABS: INTERNATIONAL NORMALIZED RATIO 2.4 RATIO; PROTHROMBIN TIME - PATIENT 24.1 SEC (9.8-11.6)
== END ==
LOC: PLAB 14:20
PROVIDERS: ATTEND Internal Medicine Interventional Cardiology
DX: I48.0 Paroxysmal atrial fibrillation (principal); Z79.01 Long term (current) use of anticoagulants
CPT/HCPCS: 36415; 85610

== ENCOUNTER → 2018-01-06 | Outpatient (CLI) | payer MEDICARE ==
[2018-01-06 08:33] LABS: INTERNATIONAL NORMALIZED RATIO 2.3 RATIO; PROTHROMBIN TIME - PATIENT 23.3 SEC (9.8-11.6)
== END ==
LOC: PLAB 07:30
PROVIDERS: ATTEND Internal Medicine Interventional Cardiology
DX: I48.0 Paroxysmal atrial fibrillation (principal); Z79.01 Long term (current) use of anticoagulants
CPT/HCPCS: 36415; 85610

== ENCOUNTER → 2018-01-12 | Outpatient (CLI) | payer MEDICARE ==
[2018-01-12 09:51] LABS: AUTOMATED NEUTROPHIL # 5.7 TH/MM3 (1.8-7.7); BASOPHIL # 0.1 TH/MM3 (0-0.2); EOSINOPHIL # 0.1 TH/MM3 (0-0.4); EOSINOPHIL % 1.9 % (0.0-4.0); HEMATOCRIT 33.2 % (35.0-46.0); HEMOGLOBIN 10.8 GM/DL (11.6-15.3); LYMPH % 12.4 % (9.0-44.0); LYMPHOCYTE # 0.9 TH/MM3 (1.0-4.8); MEAN CELL VOLUME 88.4 FL (80.0-100.0); MEAN CORPUSCULAR HEMOGLOBIN 28.8 PG (27.0-34.0); MEAN CORPUSCULAR HGB CONC 32.5 % (32.0-36.0); MEAN PLATELET VOLUME 7.7 FL (7.0-11.0); MONO % 7.5 % (0.0-8.0); MONOCYTE # 0.6 TH/MM3 (0-0.9); NEUT % 77.2 % (16.0-70.0); PLATELET COUNT 353 TH/MM3 (150-450); RED BLOOD COUNT 3.76 MIL/MM3 (4.00-5.30); RED CELL DISTRIBUTION WIDTH 15.8 % (11.6-17.2); WHITE BLOOD COUNT 7.4 TH/MM3 (4.0-11.0)
[2018-01-12 10:03] LABS: ALBUMIN 3.5 GM/DL (3.4-5.0); AST (GOT) 21 U/L (15-37); BICARBONATE 22.3 MEQ/L (21.0-32.0); BLOOD UREA NITROGEN 14 MG/DL (7-18); CALCIUM 9.9 MG/DL (8.5-10.1); CHLORIDE 111 MEQ/L (98-107); CREATININE 1.33 MG/DL (0.50-1.00); GLOMERULAR FILTRATION RATE 39 ML/MIN (>89); GLUCOSE,FASTING 104 MG/DL (74-99); SODIUM (NA) 143 MEQ/L (136-145)
[2018-01-12 10:04] LABS: ALT (GPT) 50 U/L (10-53)
[2018-01-12 10:06] LABS: ALKALINE PHOSPHATASE 126 U/L (45-117); TOTAL BILIRUBIN ADULT 0.2 MG/DL (0.2-1.0); TOTAL PROTEIN 7.4 GM/DL (6.4-8.2)
== END ==
LOC: PLAB 06:37
PROVIDERS: ATTEND Internal Medicine Interventional Cardiology
DX: R00.2 Palpitations (principal); I34.0 Nonrheumatic mitral (valve) insufficiency; I47.1 Supraventricular tachycardia
CPT/HCPCS: 36415; 80053; 85025

== ENCOUNTER → 2018-02-09 | Outpatient (CLI) | payer MEDICARE ==
[2018-02-09 13:56] LABS: INTERNATIONAL NORMALIZED RATIO 2.5 RATIO; PROTHROMBIN TIME - PATIENT 24.8 SEC (9.8-11.6)
== END ==
LOC: PLAB 10:52
PROVIDERS: ATTEND Internal Medicine Interventional Cardiology
DX: I48.0 Paroxysmal atrial fibrillation (principal); Z79.01 Long term (current) use of anticoagulants
CPT/HCPCS: 36415; 85610

== ENCOUNTER → 2018-02-21 | Outpatient (CLI) | payer MEDICARE ==
[2018-02-21 13:46] LABS: CREATININE 1.19 MG/DL (0.50-1.00)
== END ==
LOC: PLAB 10:12
DX: K63.9 Disease of intestine, unspecified (principal)
CPT/HCPCS: 36415; 82565; 84520

== ENCOUNTER 2018-03-28 06:18 | Inpatient (IN) | payer MEDICARE ==
[~2018-03-28] VITALS: Ht 172.7 cm; Wt 96.3 kg
[~2018-03-28 06:18] MED LIST changes: -ACET1TAB94 PO; +ALBUAER3 INH; -AZIT250T3 PO; -Albuterol-Ipratropium Neb NEB; -Budeson-Formot 160-4.5 Mcg Inh INH; +CHLO7.5 PO; +CYMB30CA PO; -CYMB60CA PO; -DIFL100T PO; +DILT120T PO; -DILT180C7 PO; +HYDR-3111 PO; -NEBULIZER1 MI1 NEB; -PRED20 PO; -SPIRCAP INH; +SYMB160A INH; -VENTAER INH
[2018-03-28] MEDS ORDERED: metroNIDAZOLE 500 MG INJ 100 ML IV ONE (06:36)
[2018-03-28] MEDS ORDERED: ceFAZolin INJ 1,000 MG VIAL ONE (06:36)
[2018-03-28] MEDS ORDERED: BUPIVACAINE/EPINEPHRINE 0.25% 50 ML VIAL ONE (06:36)
[2018-03-28] MEDS ORDERED: METOPROLOL TARTRATE 25 MG TAB PO PRN (06:45)
[2018-03-28] MEDS ORDERED: ceFAZolin 2 GM/DEX PREMIX 50 ML IV SCH (06:45)
[2018-03-28] MEDS ORDERED: LACTATED RINGER'S 1000 ML IV PRN (06:45)
[2018-03-28] MEDS ORDERED: CHLORHEXIDINE GLUCONATE 2 % 1 PACK (2 CLOTHS) TOPICAL PRN (06:45)
[2018-03-28] MEDS ORDERED: SODIUM CHLORID 0.9% 500 ML IV PRN (06:45)
[2018-03-28] MEDS ORDERED: POVIDONE IODINE 5% (ANTISEPSIS KIT) 4 APPLICATIONS EACH NARE PRN (06:45)
[2018-03-28] MEDS ORDERED: METRONIDAZOLE 500 MG/100 ML ISONTONIC SOLN IV ONE (07:00)
[2018-03-28] MEDS ORDERED: ALVIMOPAN 12 MG CAPSULE ONE (07:11)
[2018-03-28] MEDS ORDERED: ALVIMOPAN 12 MG CAPSULE - On Call PO SCH (07:30)
[2018-03-28 07:39] LABS: AUTOMATED NEUTROPHIL # 7.1 TH/MM3 (1.8-7.7); BASOPHIL # 0.1 TH/MM3 (0-0.2); BASOPHIL % 0.9 % (0.0-2.0); EOSINOPHIL # 0.2 TH/MM3 (0-0.4); EOSINOPHIL % 1.8 % (0.0-4.0); HEMATOCRIT 27.9 % (35.0-46.0); LYMPH % 10.1 % (9.0-44.0); LYMPHOCYTE # 0.9 TH/MM3 (1.0-4.8); MEAN CELL VOLUME 82.4 FL (80.0-100.0); MEAN CORPUSCULAR HEMOGLOBIN 26.6 PG (27.0-34.0); MEAN CORPUSCULAR HGB CONC 32.3 % (32.0-36.0); MEAN PLATELET VOLUME 7.7 FL (7.0-11.0); MONO % 7.7 % (0.0-8.0); MONOCYTE # 0.7 TH/MM3 (0-0.9); NEUT % 79.5 % (16.0-70.0); PLATELET COUNT 260 TH/MM3 (150-450); RED BLOOD COUNT 3.39 MIL/MM3 (4.00-5.30); RED CELL DISTRIBUTION WIDTH 17.3 % (11.6-17.2); WHITE BLOOD COUNT 8.9 TH/MM3 (4.0-11.0)
[2018-03-28 07:52] LABS: INTERNATIONAL NORMALIZED RATIO 1.3 RATIO; PROTHROMBIN TIME - PATIENT 12.7 SEC (9.8-11.6)
[2018-03-28 08:05] LABS: BICARBONATE 21.7 MEQ/L (21.0-32.0); CALCIUM 9.1 MG/DL (8.5-10.1); CREATININE 1.16 MG/DL (0.50-1.00)
[2018-03-28] MEDS ORDERED: DO NOT ADM ANY ANTICOAGULANT DRUGS PRN (09:45)
[2018-03-28] MEDS ORDERED: *morphine SULFATE 4 MG/ML PERIprocedure ONLY ONE ×2 (09:49→10:18)
[2018-03-28] MEDS ORDERED: MIDAZOLAM HCL 2 MG/2 ML VIAL ONE (09:49)
--- NOTE | 2018-03-28 09:53 | HHI.PR ---
cc: James Hurley MD; Kvng Williamson MD Immediate Post Op Note Procedure Date: March 28, 2018 Pre Op Diagnosis: (1) Anemia (2) HTN (hypertension) Post Op Diagnosis: (1) Intra-abdominal adhesions Surgeon: James Hurley Probate Clerk(s): Please refer to our records Procedure: Please refer to OR records Findings: Adhesions in the right upper quadrant in the midline No small bowel tumor identified by laparoscopic examination and exploratory laparotomy Normal appendix Normal small bowel from the ligament of Treitz all the way to the ileocecal valve No palpable mass identified in the entirety of the small bowel Normal-appearing appendix Complications: None Specimen(s) removed: None Anesthesia: General Drains: None IVF Patient to: PACU Patient Condition: Good Implant/Devices: SEE IMPLANT LOG (if applicable) Date/Time of Procedure: SEE SURGICAL CARE RECORD James Hurley MD March 28, 2018 09:53
[2018-03-28] MEDS ORDERED: ONDANSETRON HCL 4 MG/2 ML VIAL IV PUSH PRN (10:00)
[2018-03-28] MEDS ORDERED: Post-op Orders (for Pharmacy) XX ONE (10:00)
[2018-03-28] MEDS ORDERED: NALOXONE HCL 0.4 MG/ML AMP IV PUSH PRN (10:00)
--- NOTE | 2018-03-28 10:46 | MP ---
cc: James Hurley MD, Harry MD DATE OF OPERATION: PREOPERATIVE DIAGNOSIS: 1. Questionable small bowel mass. 2. Anemia. 3. Small bowel mass seen on capsule endoscopy. POSTOPERATIVE DIAGNOSIS: 1. Intra-abdominal adhesions. 2. Normal appendix. 3. Normal liver. 4. Normal small bowel from the ligament of Treitz to the ileocecal valve with normal cecum. PROCEDURE: 1. Diagnostic laparoscopy. 2. Laparoscopic lysis of adhesions. PROCEDURE PERFORMED: Exploratory laparotomy with evaluation of the small bowel from the ligament of Treitz to the ileocecal valve. ANESTHESIA: General. SURGEON: Dr. Hurley. INDICATIONS FOR PROCEDURE: This is a pleasant lady who has had a fairly extensive workup by the paleology teacher with numerous scans and endoscopies. She is anemic. She had a capsule endoscopy and was thought to have a mass in the ileum that was seen on the pictures. She is sent to me for surgical opinion. PROCEDURE: The patient was taken to the operating room and placed in supine position. After anesthesia, her abdomen was prepped with Betadine. Preoperative antibiotics were given. A timeout was done. We make an incision just above the umbilicus. A balloon trocar was introduced into the abdomen. The abdomen was insufflated to 15 mmHg. She had some dense adhesions in the right upper quadrant and some flimsy adhesion of the omentum to the midline abdomen. We were able to get a trocar just above the pubic tubercle 5 mm and another 5 mm in the right lower quadrant. We were able to facilitate lysis of the adhesions along the midline of the omentum. These were completely taken down. The adhesions in the right upper quadrant, taken down with blunt dissection as well. We then could see the appendix is completely normal. The cecum was normal. We traced the ileocecal valve and small bowel, all the way up to the ligament of Treitz and I do not see any abnormality along the antimesenteric border of the bowel. The capsule endoscopy was somewhat in the ileum, but I traversed all the way up to the ileocecal valve, not palpating with the instruments any abnormality. I then ran it from the ligament of Treitz down to the ileocecal valve, 3 times and no identifiable mass. Because of the photos that we saw with the capsule endoscopy, I felt that a more close inspection of the small bowel indicated and so we extended the umbilical incision down inferiorly around the right side of the umbilicus and entered the abdomen. Again, the cecum was palpated as normal, appendix normal. We then traced the distal ileum at the ileocecal valve, carefully palpating and inspecting the mesenteric and antimesenteric border of the small bowel, all the way up to the ligament of Treitz. Again, I do not feel any abnormality. Her bowel wall was somewhat thin, but I do not palpate any lesion in the entirety of the small bowel. I examined this fairly closely and did not palpate any abnormality. With this in mind, we then just placed the small bowel back into the abdomen. The omentum was draped over the small bowel. We placed some Seprafilm along the omentum to hopefully prevent adhesions. The wound protector device was then removed and the fascia was closed with a #1 PDS in a running fashion and the skin was reapproximated with skin stapling device and the donna dressing is applied and abdominal binder. The intraoperative findings were discussed with the family in the waiting room. I also discussed with Dr. Williamson. James Hurley MD JDB/FER , 10:22 AM , 10:44 AM
[2018-03-28] MEDS ORDERED: NEOSTIGMINE 5 MG/5 ML SYRINGE IV PUSH ONE (12:00)
[2018-03-28] MEDS ORDERED: ePHEDrine/NS 25 MG/5 ML SYRINGE IV ONE (12:00)
[2018-03-28] MEDS ORDERED: GLYCOPYRROLATE 0.6 MG/3 ML SYRINGE IV PUSH ONE (12:00)
[2018-03-28] MEDS ORDERED: PHENYLEPH/NS 1000 MCG/10 ML SYR IV ONE (12:00)
[2018-03-28] MEDS ORDERED: DEXAMETHASONE SOD PHOS 4 MG/ML VIAL IV ONE (12:00)
[2018-03-28] MEDS ORDERED: LIDOCAINE HCL 1% PF 5 ML SYRINGE OTHER ONE (12:00)
[2018-03-28] MEDS ORDERED: PROPOFOL 200 MG/20 ML AMP IV ONE (12:00)
[2018-03-28] MEDS ORDERED: ROCURONIUM INJ 50 MG/5 ML SYRINGE IV PUSH ONE (12:00)
[2018-03-28] MEDS ORDERED: ONDANSETRON HCL 4 MG/2 ML VIAL IV ONE (12:00)
[2018-03-28] MEDS ORDERED: LACTATED RINGER'S 1000 ML INJ 1,000 ML IV ONE (12:00)
[2018-03-28] MEDS: HYDROmorphone HCL PCA 6 MG/30 ML IV SCH ×2 (13:11→17:33)
[2018-03-28] MEDS: PCA - TOTAL MG DILAUDID DELIVERED PER SHIFT OTHER SCH ×2 (14:00→20:24)
[2018-03-28 16:00] VITALS: BP 119/59; PULSE 73; RESP 16; TEMP 97.3; O2SAT 95
[2018-03-28] MEDS: SODIUM CHLOR 0.9% 1000 ML INJ 1,000 ML IV SCH ×2 (19:46→20:23)
[2018-03-28 20:00] VITALS: BP 141/67; PULSE 82; RESP 21; TEMP 97.7; O2SAT 97
[2018-03-28] MEDS ORDERED: DILTIAZEM-CD 120 MG CAP ER PO ONE (23:15)
[2018-03-28] MEDS: GABAPENTIN 300 MG CAP PO SCH (23:26)
[2018-03-28] MEDS ORDERED: BUDESONIDE-FORMOTEROL 160/4.5 MCG INHALER INH ONE (23:30)
[2018-03-28] MEDS ORDERED: PANTOPRAZOLE SOD 20 MG DELAYED RELEASE TAB PO ONE (23:30)
[2018-03-28] MEDS ORDERED: GABAPENTIN 300 MG CAP PO ONE (23:30)
[2018-03-29] VITALS (7 sets, daily range): BP systolic 116–139; BP diastolic 64–69; PULSE 83–92; RESP 17–21; TEMP 97.2–98; O2SAT 92–96
[2018-03-29] MEDS ORDERED: METOPROLOL TARTRATE 25 MG TAB PO PRN (02:00)
[2018-03-29] MEDS ORDERED: CARISOPRODOL 350 MG TAB PO PRN (02:00)
[2018-03-29] MEDS: HYDROmorphone HCL PCA 6 MG/30 ML IV SCH ×2 (04:27→22:11)
[2018-03-29] MEDS: PCA - TOTAL MG DILAUDID DELIVERED PER SHIFT OTHER SCH ×3 (04:29→22:00)
[2018-03-29] MEDS: ALBUTEROL SULFATE 90 MCG/ACT HFA 8 GM INHALER INH PRN ×2 (04:35→19:09)
[2018-03-29] MEDS: LEVOTHYROXINE SODIUM 100 MCG TAB PO SCH (04:36)
[2018-03-29] MEDS: SODIUM CHLOR 0.9% 1000 ML INJ 1,000 ML IV SCH ×2 (04:47→13:32)
[2018-03-29] MEDS: NYSTAT/DIPHENHY/LIDO MOUTHWASH (Adult) 120ML SWISH-SWAL SCH ×3 (08:00→20:00)
[2018-03-29] MEDS: BUDESONIDE-FORMOTEROL 160/4.5 MCG INHALER INH SCH ×2 (09:00→21:14)
[2018-03-29] MEDS: LISINOPRIL 20 MG TAB PO SCH (10:06)
[2018-03-29] MEDS: DULoxetine HCl DR 30 MG CAP PO SCH (10:06)
[2018-03-29] MEDS: DILTIAZEM-CD 120 MG CAP ER PO SCH ×2 (10:06→21:13)
[2018-03-29] MEDS: ALVIMOPAN 12 MG CAPSULE - Post-op dosing PO SCH ×2 (10:07→21:13)
[2018-03-29] MEDS: PANTOPRAZOLE SOD 20 MG DELAYED RELEASE TAB PO SCH ×2 (10:07→21:13)
[2018-03-29 10:25] LABS: AUTOMATED NEUTROPHIL # 19.5 TH/MM3 (1.8-7.7); BASOPHIL # 0.1 TH/MM3 (0-0.2); BASOPHIL % 0.4 % (0.0-2.0); HEMATOCRIT 28.8 % (35.0-46.0); HEMOGLOBIN 8.9 GM/DL (11.6-15.3); LYMPH % 1.8 % (9.0-44.0); LYMPHOCYTE # 0.4 TH/MM3 (1.0-4.8); MEAN CELL VOLUME 85.1 FL (80.0-100.0); MEAN CORPUSCULAR HEMOGLOBIN 26.1 PG (27.0-34.0); MEAN CORPUSCULAR HGB CONC 30.7 % (32.0-36.0); MEAN PLATELET VOLUME 8.5 FL (7.0-11.0); MONO % 5.1 % (0.0-8.0); MONOCYTE # 1.1 TH/MM3 (0-0.9); NEUT % 92.7 % (16.0-70.0); PLATELET COUNT 301 TH/MM3 (150-450); RED BLOOD COUNT 3.39 MIL/MM3 (4.00-5.30); RED CELL DISTRIBUTION WIDTH 17.2 % (11.6-17.2); WHITE BLOOD COUNT 21.1 TH/MM3 (4.0-11.0)
--- NOTE | 2018-03-29 14:28 | RADRPT ---
EXAM DATE/TIME: 03/29/2018 14:07 [facility] COMPARISON: CHEST SINGLE AP, October 17, 2017, 18:15. INDICATIONS : Short of breath. MEDICAL HISTORY : Cardiovascular disease. Hypertension Carcinoma, breast. SURGICAL HISTORY : left breast lumpectomy ENCOUNTER: Initial ACUITY: 1 day PAIN SCORE: 0/10 LOCATION: Bilateral chest FINDINGS: The heart is enlarged. There are mild chronic interstitial changes within the pulmonary parenchyma. T here is no pleural effusion. The visualized bony structures are grossly intact. CONCLUSION: 1. Mild cardiomegaly and chronic appearing interstitial changes. No acute abnormality is identified. Mohan Zelaya MD on March 29, 2018 at 14:23 Board Certified Radiologist. This report was verified electronically.
--- NOTE | 2018-03-29 16:47 | HHI.PR ---
cc: James Hurley MD Subjective Subjective Notes DAILY PROGRESS NOTE FOR SURGICAL ATTENDING, DR. JAMES HURLEY Resting in bed Objective Vitals/I&O Vital Signs Date Time Temp Pulse Resp B/P (MAP) Pulse Ox O2 Delivery O2 Flow Rate FiO2 03/29/18 13:34 16 03/29/18 12:00 97.2 87 123/69 (87) 95 03/29/18 09:50 Nasal Cannula 3.00 Labs Laboratory Tests Test 03/29/18 08:39 White Blood Count 21.1 Red Blood Count 3.39 Hemoglobin 8.9 Hematocrit 28.8 Mean Corpuscular Volume 85.1 Mean Corpuscular Hemoglobin 26.1 Mean Corpuscular Hemoglobin Concent 30.7 Red Cell Distribution Width 17.2 Platelet Count 301 Mean Platelet Volume 8.5 Neutrophils (%) (Auto) 92.7 Lymphocytes (%) (Auto) 1.8 Monocytes (%) (Auto) 5.1 Eosinophils (%) (Auto) 0.0 Basophils (%) (Auto) 0.4 Neutrophils # (Auto) 19.5 Lymphocytes # (Auto) 0.4 Monocytes # (Auto) 1.1 Eosinophils # (Auto) 0.0 Basophils # (Auto) 0.1 CBC Comment DIFF FINAL Differential Comment Radiology Last Impressions Chest X-Ray 03/29/18 0000 Signed Impressions: Service Date/Time: Thursday, March 29, 2018 14:07 - CONCLUSION: 1. Mild cardiomegaly and chronic appearing interstitial changes. No acute abnormality is identified. Mohan Zelaya MD Cardiovascular: Regular Lungs: Upper airway course sound Abdomen: Other (James dressing in place ) Extremities: No edema A/P Problem List: (1) Status post exploratory laparotomy ICD Codes: Z98.890 - Other specified postprocedural states Status: Acute (2) Mild shortness of breath ICD Codes: R06.02 - Shortness of breath Status: Acute (3) COPD (chronic obstructive pulmonary disease) ICD Codes: J44.9 - COPD (chronic obstructive pulmonary disease) Status: Chronic (4) Pain ICD Codes: R52 - Pain Status: Acute (5) Anemia ICD Codes: D64.9 - Anemia, unspecified Status: Chronic (6) GERD (gastroesophageal reflux disease) ICD Codes: K21.9 - Gastro-esophageal reflux disease without esophagitis Status: Chronic Assessment and Plan 72 year old female POD1 dx converted to ex lap -No mass seen intraoperatively in the entirety of the small bowel -Advance to soft diet -KVO IVF -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 Posada for post op SOB Decrease IV fluids Change to p.o. pain medication Advance diet Attending Statement NOTE FOR SURGICAL ATTENDING, DR. JAMES HURLEY Patient mildly short of breath after ambulating to the restroom Has been urinating a fair amount Would like more to eat Noted white count 21,000 may be stress related She had an appointment with Dr. Marcano today she forgot to call his office Because of her postop shortness of breath I will get Dr. Peraza the set off blocker to see her I agree with above assessment and plan. The exam, history, and the medical decision-making described in the above note were completed with the assistance of the mid-level provider. I reviewed and agree with the findings presented. I attest that I had a [id number] encounter with the patient on the same day, and personally performed and documented my assessment and findings in the medical record. The following services were provided during this hospital visit: Chart data review, vital sign assessments/reviewing monitor data Review of consultations notes if present. Medication orders/review and/or management Ordering and/or reviewing lab tests Ordering and/or interpreting/reviewing x-rays and/or diagnostic studies Care of the patient and discussion of the patient with the care team Documentation time To help prompt me to consider important information that might be impacting today's encounter and assessment, Information from prior notes written by myself or my colleagues may have been "brought forward/copy and pasted" into today's note. Tianna Cabral/Web Marketing Manager PATROL AGENT March 29, 2018 16:47 James Hurley MD March 29, 2018 16:48
--- NOTE | 2018-03-29 21:47 | MB ---
cc: Brice Posada MD, Arjun D MD DATE: 03/29/2018 REQUESTING PHYSICIAN: Dr. James Hurley. REASON FOR CONSULTATION: Shortness of breath and wheezing. HISTORY OF PRESENT ILLNESS: Ms. Allred is a pleasant 72-year-old white female with a history of coronary artery disease, atrial fibrillation and COPD. She also has history of cancer of her breast and lumpectomy. The patient was brought by Dr. James Hurley. She underwent surgery and she had a diagnostic laparoscopy and laparoscopic lysis of the adhesions. She was complaining of shortness of breath and has mild wheezing, occasional cough. No fever or chills. No night sweats, no chest pain. She had a workup done. A chest x-ray shows mild cardiomegaly, no acute infiltrate. Her WBC count is 21.1, hemoglobin 8.9, hematocrit 28.8, MCV 85, platelet count 301. Her sodium 144, potassium 3.4, chloride 113, CO2 of 21, BUN 8, creatinine 1.16. PAST MEDICAL HISTORY: Significant for history of coronary artery disease, COPD, atrial fibrillation, chronic kidney disease, history of CA of the breast status post lumpectomy and arthroscopy of the knee. MEDICATIONS: She is currently taking: Neurontin 600 mg at nighttime, Percocet for pain, Entereg 12 mg twice a day, Protonix 20 mg twice a day, lisinopril 20 mg a day, Symbicort 160/4.5 2 puffs twice a day, diltiazem 120 mg twice a day, Cymbalta 30 mg a day, Magic mouthwash, Synthroid 100 mcg a day, metoprolol 25 mg a day, Soma 350 mg q. 6 hours as needed, albuterol inhaler, Valium 5 mg as needed, SUPER[employer]OR [employer] Dilaudid for pain. ALLERGIES: SHE IS ALLERGIC TO NSAID. SOCIAL HISTORY: She is for 58 years. She has a history of smoking for 36 years, which she quit. She drinks socially. 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 FAMILY HISTORY: She has 2 children. Her father with heart disease at age 47. Strong family history of cancer. Mother with lung cancer, sister and 3 uncles of lung cancer. REVIEW OF SYSTEMS: She has mild shortness of breath, mild wheezing. No fever or chills. No night sweats, no chest pain. Her has leprosy, which he contracted while handling Arm[employer]os and working in a field as a hobby. PHYSICAL EXAMINATION: GENERAL: Elderly female with mild shortness of breath, not in acute distress. VITAL SIGNS: Blood pressure 116/64, heart rate 80, respirations 20 and temperature 97.8. HEENT: Showed pupils are equal and react to light. Oral mucosa and nasal mucosa normal. NECK: Supple. JVP not raised. LUNGS: She has faint rhonchi. CARDIOVASCULAR: S1, S2 normal. ABDOMEN: Mildly tender. EXTREMITIES: No edema. IMPRESSION: 1. Shortness of breath secondary to underlying chronic obstructive pulmonary disease. Also, she had difficulty breathing, mainly because of the abdominal binder at the surgery. 2. Status post laparoscopic surgery and lysis of adhesions. 3. History of coronary artery disease. 4. History of cancer of the breast. PLAN: I discussed with the patient, her daughter and at the bedside. I encouraged her to use incentive spirometry to supplement her oxygen, continue aerosol treatment, Symbicort twice a day and pain control. Further treatment will depend on the course in the hospital. Thank you, Dr. James Hurley, for this consult. MD ANU Bejarano//joon , 08:49 PM , 09:21 PM [facility]
[2018-03-30] VITALS (8 sets, daily range): BP systolic 125–156; BP diastolic 59–67; PULSE 18–94; RESP 16–21; TEMP 97.8–98.3; O2SAT 92–99
[2018-03-30] MEDS: DIAZEPAM 5 MG TAB PO PRN ×2 (02:44→15:00)
[2018-03-30] MEDS: oxyCODONE/ACETAMINOPHEN 5 MG/325 MG TAB PO PRN ×5 (02:45→21:52)
[2018-03-30] MEDS: NYSTAT/DIPHENHY/LIDO MOUTHWASH (Adult) 120ML SWISH-SWAL SCH ×4 (02:46→20:44)
[2018-03-30] MEDS: PCA - TOTAL MG DILAUDID DELIVERED PER SHIFT OTHER SCH ×2 (06:00→11:47)
[2018-03-30] MEDS: LEVOTHYROXINE SODIUM 100 MCG TAB PO SCH (06:06)
[2018-03-30] MEDS: BUDESONIDE-FORMOTEROL 160/4.5 MCG INHALER INH SCH ×2 (08:55→20:43)
[2018-03-30] MEDS: DULoxetine HCl DR 30 MG CAP PO SCH (08:56)
[2018-03-30] MEDS: ALVIMOPAN 12 MG CAPSULE - Post-op dosing PO SCH ×2 (08:56→20:46)
[2018-03-30] MEDS: DILTIAZEM-CD 120 MG CAP ER PO SCH ×2 (08:57→20:46)
[2018-03-30] MEDS: PANTOPRAZOLE SOD 20 MG DELAYED RELEASE TAB PO SCH ×2 (08:57→20:46)
[2018-03-30] MEDS: LISINOPRIL 20 MG TAB PO SCH (09:00)
[2018-03-30] MEDS ORDERED: RESP: ALBUTEROL CONC 2.5 MG/0.5 ML NEB NEB ONE (11:45)
[2018-03-30] MEDS ORDERED: RESP: ALBUTEROL CONC 2.5 MG/0.5 ML NEB NEB PRN (11:45)
--- NOTE | 2018-03-30 15:03 | HHI.PR ---
cc: James Hurley MD Subjective Subjective Notes DAILY PROGRESS NOTE FOR SURGICAL ATTENDING, DR. JAMES HURLEY Resting in bed "Can I have a cheeseburger?" Still continues to have wheezing Objective Vitals/I&O Vital Signs Date Time Temp Pulse Resp B/P (MAP) Pulse Ox O2 Delivery O2 Flow Rate FiO2 03/30/18 12:33 99 Nasal Cannula 2.00 03/30/18 12:00 98.1 93 20 156/64 (94) Labs Laboratory Tests Test 03/30/18 14:05 Radiology Last Impressions Chest X-Ray 03/30/18 0000 Signed Impressions: Service Date/Time: March 14:54 - CONCLUSION: 1. Patchy left lower lobe airspace disease concerning for developing pneumonia in the appropriate clinical setting. Francis Mullen MD Last Impressions Chest X-Ray 03/29/18 0000 Signed Impressions: Service Date/Time: Thursday, March 29, 2018 14:07 - CONCLUSION: 1. Mild cardiomegaly and chronic appearing interstitial changes. No acute abnormality is identified. Mohan Zelaya MD Cardiovascular: Regular Lungs: Wheezes Abdomen: Other (incision with NARCISO with mild drainage on bandage ) Extremities: No edema A/P Problem List: (1) Elevated white blood cell count ICD Codes: D72.829 - Elevated white blood cell count, unspecified Status: Acute (2) Mild shortness of breath ICD Codes: R06.02 - Shortness of breath Status: Acute (3) Postoperative pneumonia ICD Codes: J95.89 - Other postprocedural complications and disorders of respiratory system, not elsewhere classified; J18.9 - Pneumonia, unspecified organism Status: Acute (4) Status post exploratory laparotomy ICD Codes: Z98.890 - Other specified postprocedural states Status: Acute (5) COPD (chronic obstructive pulmonary disease) ICD Codes: J44.9 - COPD (chronic obstructive pulmonary disease) Status: Chronic (6) Pain ICD Codes: R52 - Pain Status: Acute (7) Anemia ICD Codes: D64.9 - Anemia, unspecified Status: Chronic (8) GERD (gastroesophageal reflux disease) ICD Codes: K21.9 - Gastro-esophageal reflux disease without esophagitis Status: Chronic Assessment and Plan 72 year old female POD2 dx converted to ex lap -No mass seen intraoperatively -Advance to soft diet -Repeat CXR today -Pain controlled with Percocet; 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 Posada following Attending Statement NOTE FOR SURGICAL ATTENDING, DR. JAMES HURLEY Patient feels a little better Still has some wheezing Chest x-ray shows pneumonia White count persistent elevation Begin antibiotics for postop pneumonia. Encourage incentive spirometer Restart Coumadin I agree with above assessment and plan. The exam, history, and the medical decision-making described in the above note were completed with the assistance of the mid-level provider. I reviewed and agree with the findings presented. I attest that I had a [id number] encounter with the patient on the same day, and personally performed and documented my assessment and findings in the medical record. The following services were provided during this hospital visit: Chart data review, vital sign assessments/reviewing monitor data Review of consultations notes if present. Medication orders/review and/or management Ordering and/or reviewing lab tests Ordering and/or interpreting/reviewing x-rays and/or diagnostic studies Care of the patient and discussion of the patient with the care team Documentation time To help prompt me to consider important information that might be impacting today's encounter and assessment, Information from prior notes written by myself or my colleagues may have been "brought forward/copy and pasted" into today's note. Tianna Cabral/Welder Gun ARNP March 30, 2018 15:03 James Hurley MD March 30, 2018 16:51
[2018-03-30 15:11] LABS: AUTOMATED NEUTROPHIL # 18.6 TH/MM3 (1.8-7.7); BASOPHIL % 0.1 % (0.0-2.0); EOSINOPHIL % 0.1 % (0.0-4.0); HEMATOCRIT 26.8 % (35.0-46.0); HEMOGLOBIN 8.3 GM/DL (11.6-15.3); LYMPH % 2.8 % (9.0-44.0); LYMPHOCYTE # 0.6 TH/MM3 (1.0-4.8); MEAN CELL VOLUME 85.6 FL (80.0-100.0); MEAN CORPUSCULAR HEMOGLOBIN 26.6 PG (27.0-34.0); MEAN CORPUSCULAR HGB CONC 31.1 % (32.0-36.0); MEAN PLATELET VOLUME 8.6 FL (7.0-11.0); MONO % 5.2 % (0.0-8.0); MONOCYTE # 1.1 TH/MM3 (0-0.9); NEUT % 91.8 % (16.0-70.0); PLATELET COUNT 244 TH/MM3 (150-450); RED BLOOD COUNT 3.14 MIL/MM3 (4.00-5.30); RED CELL DISTRIBUTION WIDTH 17.4 % (11.6-17.2); WHITE BLOOD COUNT 20.3 TH/MM3 (4.0-11.0)
--- NOTE | 2018-03-30 15:25 | RADRPT ---
EXAM DATE/TIME: 03/30/2018 14:54 [facility] COMPARISON: CHEST SINGLE AP, October 17, 2017, 18:15. CHEST SINGLE AP, March 29, 2018, 14:07. INDICATIONS : Short of breath. MEDICAL HISTORY : Cardiovascular disease. Hypertension Carcinoma, breast. SURGICAL HISTORY : left breast lumpectomy ENCOUNTER: Subsequent ACUITY: 2 days PAIN SCORE: 0/10 LOCATION: Bilateral chest FINDINGS: Patchy left lower lobe airspace disease. Cardiomediastinal contours are stable. Remainder of the exam is unchanged. CONCLUSION: 1. Patchy left lower lobe airspace disease concerning for developing pneumonia in the appropriate cli nical setting. Francis Mullen MD on March 30, 2018 at 15:18 Board Certified Radiologist. This report was verified electronically.
[2018-03-30] MEDS: LEVOFLOXACIN 500 MG PREMIX INJ 100 ML IV SCH (16:39)
[2018-03-30] MEDS: RESP: ALBUTEROL 2.5 MG/3 ML NEB (PRN) NEB (18:26)
--- NOTE | 2018-03-30 19:19 | HHI.PR ---
Subjective Remarks 72 YOWF with COPD,CAD,s/p lysis of adhesions Has sob, wheezing Cough with small amount of sp Started Levaquin Tolertaes Po Objective Vital Signs Vital Signs Date Time Temp Pulse Resp B/P (MAP) Pulse Ox O2 Delivery O2 Flow Rate FiO2 03/30/18 18:26 92 Nasal Cannula 3.00 03/30/18 16:00 98.3 18 20 149/67 (94) 93 03/30/18 12:33 99 Nasal Cannula 2.00 03/30/18 12:00 98.1 93 20 156/64 (94) 93 03/30/18 08:00 97.9 82 18 125/59 (81) 92 03/30/18 04:38 18 03/30/18 04:25 98.0 81 16 136/63 (87) 96 03/30/18 00:27 97.9 86 21 139/63 (88) 93 03/29/18 23:00 18 03/29/18 20:00 97.8 83 21 116/64 (81) 92 I/O 03/29/18 03/29/18 03/29/18 03/30/18 03/30/18 03/30/18 07:00 15:00 23:00 07:00 15:00 23:00 Intake Total 0 ml 1200 ml 780 ml 640 ml Output Total 1000 ml Balance -1000 ml 1200 ml 780 ml 640 ml Intake Oral 0 ml 1200 ml 780 ml 640 ml Output Urine Total 1000 ml # Voids 4 4 3 3 # Bowel Movements 1 0 Result Diagram: 03/30/18 1405 03/28/18 0725 Objective Remarks GENERAL: WBWN WF, mild sob SKIN: Warm and dry. HEAD: Normocephalic. EYES: No scleral icterus. No injection or drainage. NECK: Supple, trachea midline. No JVD or lymphadenopathy. CARDIOVASCULAR: Regular rate and rhythm without murmurs, gallops, or rubs. RESPIRATORY: Breath sounds equal bilaterally. No accessory muscle use. Exp rhonchi GASTROINTESTINAL: Abdomen soft, non-tender, nondistended. MUSCULOSKELETAL: No cyanosis, or edema. BACK: Nontender without obvious deformity. No CVA tenderness. A/P Assessment and Plan IMPRESSION: 1. Shortness of breath secondary to underlying chronic obstructive pulmonary disease. Also, she had difficulty breathing, mainly because of the abdominal binder at the surgery. 2. Status post laparoscopic surgery and lysis of adhesions. 3. History of coronary artery disease. 4. History of cancer of the breast. PLAN: Short course of steroids Cont Abx Aerosol nebs Encourage to use IS Supplement 02 MARIE pt and her , Brice Posada MD March 30, 2018 19:19
[2018-03-30] MEDS: GABAPENTIN 300 MG CAP PO SCH (20:46)
[2018-03-30] MEDS ORDERED: NON-FORMULARY DRUG (Diltiazem 120 MG) PO SCH (21:00)
[2018-03-30] MEDS ORDERED: NON-FORMULARY DRUG (Omeprazole 20 MG) PO SCH (21:00)
[2018-03-30] MEDS: methylPREDNISolone SOD SUCC 40 MG/1 ML VIAL IV PUSH SCH (21:53)
[2018-03-31] VITALS (8 sets, daily range): BP systolic 120–146; BP diastolic 57–78; PULSE 83–97; RESP 16–20; TEMP 97.2–99.2; O2SAT 91–96
[2018-03-31] MEDS: NYSTAT/DIPHENHY/LIDO MOUTHWASH (Adult) 120ML SWISH-SWAL SCH ×4 (02:01→20:21)
[2018-03-31] MEDS: oxyCODONE/ACETAMINOPHEN 5 MG/325 MG TAB PO PRN ×4 (02:01→18:42)
[2018-03-31] MEDS: DIAZEPAM 5 MG TAB PO PRN ×2 (03:02→16:19)
[2018-03-31] MEDS: LEVOTHYROXINE SODIUM 100 MCG TAB PO SCH (05:45)
[2018-03-31] MEDS: methylPREDNISolone SOD SUCC 40 MG/1 ML VIAL IV PUSH SCH ×3 (05:45→20:21)
[2018-03-31 06:09] LABS: AUTOMATED NEUTROPHIL # 18.7 TH/MM3 (1.8-7.7); BASOPHIL % 0.1 % (0.0-2.0); LYMPH % 0.9 % (9.0-44.0); LYMPHOCYTE # 0.2 TH/MM3 (1.0-4.8); MEAN CELL VOLUME 84.6 FL (80.0-100.0); MEAN CORPUSCULAR HEMOGLOBIN 27.2 PG (27.0-34.0); MEAN CORPUSCULAR HGB CONC 32.2 % (32.0-36.0); MEAN PLATELET VOLUME 8.7 FL (7.0-11.0); MONO % 1.5 % (0.0-8.0); MONOCYTE # 0.3 TH/MM3 (0-0.9); NEUT % 97.5 % (16.0-70.0); PLATELET COUNT 235 TH/MM3 (150-450); RED BLOOD COUNT 2.95 MIL/MM3 (4.00-5.30); RED CELL DISTRIBUTION WIDTH 17.4 % (11.6-17.2); WHITE BLOOD COUNT 19.2 TH/MM3 (4.0-11.0)
[2018-03-31] MEDS: ALVIMOPAN 12 MG CAPSULE - Post-op dosing PO SCH ×2 (09:13→20:20)
[2018-03-31] MEDS: BUDESONIDE-FORMOTEROL 160/4.5 MCG INHALER INH SCH ×2 (09:13→20:26)
[2018-03-31] MEDS: LISINOPRIL 20 MG TAB PO SCH (09:13)
[2018-03-31] MEDS: PANTOPRAZOLE SOD 20 MG DELAYED RELEASE TAB PO SCH ×2 (09:13→20:20)
[2018-03-31] MEDS: DULoxetine HCl DR 30 MG CAP PO SCH (09:13)
[2018-03-31] MEDS: DILTIAZEM-CD 120 MG CAP ER PO SCH ×2 (09:13→20:20)
[2018-03-31] MEDS: RESP: ALBUTEROL 2.5 MG/3 ML NEB (PRN) NEB (09:45)
--- NOTE | 2018-03-31 11:00 | HHI.PR ---
cc: James Hurley MD Subjective Subjective Notes DAILY PROGRESS NOTE FOR SURGICAL ATTENDING, DR. JAMES HURLEY Resting in bed eating breakfast No issues at bedside Objective Vitals/I&O Vital Signs Date Time Temp Pulse Resp B/P (MAP) Pulse Ox O2 Delivery O2 Flow Rate FiO2 03/31/18 09:49 92 Nasal Cannula 3.00 03/31/18 08:00 97.7 83 17 129/71 (90) Labs Laboratory Tests Test 03/30/18 14:05 03/31/18 05:07 White Blood Count 20.3 19.2 Red Blood Count 3.14 2.95 Hemoglobin 8.3 8.0 Hematocrit 26.8 25.0 Mean Corpuscular Volume 85.6 84.6 Mean Corpuscular Hemoglobin 26.6 27.2 Mean Corpuscular Hemoglobin Concent 31.1 32.2 Red Cell Distribution Width 17.4 17.4 Platelet Count 244 235 Mean Platelet Volume 8.6 8.7 Neutrophils (%) (Auto) 91.8 97.5 Lymphocytes (%) (Auto) 2.8 0.9 Monocytes (%) (Auto) 5.2 1.5 Eosinophils (%) (Auto) 0.1 0.0 Basophils (%) (Auto) 0.1 0.1 Neutrophils # (Auto) 18.6 18.7 Lymphocytes # (Auto) 0.6 0.2 Monocytes # (Auto) 1.1 0.3 Eosinophils # (Auto) 0.0 0.0 Basophils # (Auto) 0.0 0.0 CBC Comment DIFF FINAL DIFF FINAL Differential Comment Radiology Last Impressions Chest X-Ray 03/30/18 0000 Signed Impressions: Service Date/Time: March 14:54 - CONCLUSION: 1. Patchy left lower lobe airspace disease concerning for developing pneumonia in the appropriate clinical setting. Francis Mullen MD Last Impressions Chest X-Ray 03/29/18 0000 Signed Impressions: Service Date/Time: Thursday, March 29, 2018 14:07 - CONCLUSION: 1. Mild cardiomegaly and chronic appearing interstitial changes. No acute abnormality is identified. Mohan Zelaya MD Cardiovascular: Regular Lungs: Clear Abdomen: Other (Incision with NARCISO with good seal; abdominal binder in place ) Extremities: No edema A/P Problem List: (1) Elevated white blood cell count ICD Codes: D72.829 - Elevated white blood cell count, unspecified Status: Acute (2) Mild shortness of breath ICD Codes: R06.02 - Shortness of breath Status: Acute (3) Postoperative pneumonia ICD Codes: J95.89 - Other postprocedural complications and disorders of respiratory system, not elsewhere classified; J18.9 - Pneumonia, unspecified organism Status: Acute (4) Status post exploratory laparotomy ICD Codes: Z98.890 - Other specified postprocedural states Status: Acute (5) COPD (chronic obstructive pulmonary disease) ICD Codes: J44.9 - COPD (chronic obstructive pulmonary disease) Status: Chronic (6) Pain ICD Codes: R52 - Pain Status: Acute (7) Anemia ICD Codes: D64.9 - Anemia, unspecified Status: Chronic (8) GERD (gastroesophageal reflux disease) ICD Codes: K21.9 - Gastro-esophageal reflux disease without esophagitis Status: Chronic Assessment and Plan 72 year old female POD3 dx converted to ex lap -Breathing greatly improved from yesterday; still on NC; wean as tolerated -No mass seen intraoperatively -Tolerating soft diet -Started IV Levaquin for possible post op pneumonia -Pain controlled with Percocet -Dr. Posada following -Likely needs a few days of IV antibiotics and transition to PO for home; and wean oxygen Attending Statement NOTE FOR SURGICAL ATTENDING, DR. JAMES HURLEY Patient seen Discussed with X more comfortable Still mild wheezing Continue IV antibiotics Anticipate discharge in the next 48-72 hours I agree with above assessment and plan. The exam, history, and the medical decision-making described in the above note were completed with the assistance of the mid-level provider. I reviewed and agree with the findings presented. I attest that I had a [id number] encounter with the patient on the same day, and personally performed and documented my assessment and findings in the medical record. The following services were provided during this hospital visit: Chart data review, vital sign assessments/reviewing monitor data Review of consultations notes if present. Medication orders/review and/or management Ordering and/or reviewing lab tests Ordering and/or interpreting/reviewing x-rays and/or diagnostic studies Care of the patient and discussion of the patient with the care team Documentation time To help prompt me to consider important information that might be impacting today's encounter and assessment, Information from prior notes written by myself or my colleagues may have been "brought forward/copy and pasted" into today's note. Tianna Cabral/First Isabel ORTIZ March 31, 2018 11:00 James Hurley MD March 31, 2018 17:37
[2018-03-31] MEDS ORDERED: OXYC1TAB63 PO (11:38)
[2018-03-31] MEDS ORDERED: LEVA500T33 PO (11:38)
[2018-03-31 13:25] LABS: INTERNATIONAL NORMALIZED RATIO 1.1 RATIO; PROTHROMBIN TIME - PATIENT 11.1 SEC (9.8-11.6)
[2018-03-31] MEDS ORDERED: RESP: ALBUTEROL 1.25 MG/3 ML NEB (PRN) NEB (15:30)
[2018-03-31] MEDS: WARFARIN SOD 2 MG TAB PO SCH (16:19)
[2018-03-31] MEDS: LEVOFLOXACIN 500 MG PREMIX INJ 100 ML IV SCH (16:20)
[2018-03-31] MEDS: RESP: ALBUTEROL 2.5 MG/3 ML NEB (SCH) NEB ×2 (16:34→21:14)
--- NOTE | 2018-03-31 17:43 | HHI.PR ---
Subjective Remarks 72 YOWF with COPD,CAD,s/p lysis of adhesions Less sob, wheezing improving Cough with small amount of sp On IV Levaquin Tolertaes PO Objective Vital Signs Vital Signs Date Time Temp Pulse Resp B/P (MAP) Pulse Ox O2 Delivery O2 Flow Rate FiO2 03/31/18 16:35 94 Nasal Cannula 3.00 03/31/18 15:37 97.2 86 16 132/78 (96) 95 03/31/18 12:00 97.5 89 18 146/57 (86) 91 03/31/18 09:49 92 Nasal Cannula 3.00 03/31/18 09:38 Nasal Cannula 3.00 03/31/18 08:00 97.7 83 17 129/71 (90) 92 03/31/18 00:36 99.2 97 18 120/72 (88) 92 03/30/18 20:00 97.8 94 18 140/62 (88) 93 03/30/18 18:26 92 Nasal Cannula 3.00 I/O 03/30/18 03/30/18 03/30/18 03/31/18 03/31/18 03/31/18 07:00 15:00 23:00 07:00 15:00 23:00 Intake Total 780 ml 640 ml 580 ml Balance 780 ml 640 ml 580 ml Intake Oral 780 ml 640 ml 580 ml # Voids 3 3 3 4 # Bowel Movements 0 0 Result Diagram: 03/31/18 0507 03/28/18 0725 Objective Remarks GENERAL: WBWN WF, mild sob SKIN: Warm and dry. HEAD: Normocephalic. EYES: No scleral icterus. No injection or drainage. NECK: Supple, trachea midline. No JVD or lymphadenopathy. CARDIOVASCULAR: Regular rate and rhythm without murmurs, gallops, or rubs. RESPIRATORY: Breath sounds equal bilaterally. No accessory muscle use. Exp rhonchi GASTROINTESTINAL: Abdomen soft, non-tender, nondistended. MUSCULOSKELETAL: No cyanosis, or edema. BACK: Nontender without obvious deformity. No CVA tenderness. A/P Assessment and Plan IMPRESSION: 1. Shortness of breath secondary to underlying chronic obstructive pulmonary disease. Also, she had difficulty breathing, mainly because of the abdominal binder at the surgery. 2. Status post laparoscopic surgery and lysis of adhesions. 3. History of coronary artery disease. 4. History of cancer of the breast. PLAN: Decrease Solumedrol Cont Abx Aerosol nebs Encourage to use IS Supplement 02 MARIE pt and her , Brice Posada MD March 31, 2018 17:43
[2018-03-31] MEDS: GABAPENTIN 300 MG CAP PO SCH (20:20)
[2018-04-01] VITALS (7 sets, daily range): BP systolic 117–149; BP diastolic 68–82; PULSE 83–99; RESP 19–20; TEMP 97.5–97.7; O2SAT 94–97
[2018-04-01] MEDS: NYSTAT/DIPHENHY/LIDO MOUTHWASH (Adult) 120ML SWISH-SWAL SCH ×4 (01:35→20:00)
[2018-04-01] MEDS: RESP: ALBUTEROL 2.5 MG/3 ML NEB (SCH) NEB ×4 (03:53→20:53)
[2018-04-01] MEDS: LEVOTHYROXINE SODIUM 100 MCG TAB PO SCH (05:05)
[2018-04-01] MEDS: methylPREDNISolone SOD SUCC 40 MG/1 ML VIAL IV PUSH SCH ×3 (05:06→21:45)
[2018-04-01] MEDS: DIAZEPAM 5 MG TAB PO PRN ×2 (05:11→18:46)
[2018-04-01 06:51] LABS: AUTOMATED NEUTROPHIL # 15.1 TH/MM3 (1.8-7.7); BASOPHIL % 0.1 % (0.0-2.0); HEMATOCRIT 26.1 % (35.0-46.0); HEMOGLOBIN 8.4 GM/DL (11.6-15.3); LYMPHOCYTE # 0.2 TH/MM3 (1.0-4.8); MEAN CELL VOLUME 84.1 FL (80.0-100.0); MEAN CORPUSCULAR HGB CONC 32.1 % (32.0-36.0); MEAN PLATELET VOLUME 8.7 FL (7.0-11.0); MONO % 3.1 % (0.0-8.0); MONOCYTE # 0.5 TH/MM3 (0-0.9); NEUT % 95.8 % (16.0-70.0); PLATELET COUNT 253 TH/MM3 (150-450); RED CELL DISTRIBUTION WIDTH 17.8 % (11.6-17.2); WHITE BLOOD COUNT 15.8 TH/MM3 (4.0-11.0)
[2018-04-01] MEDS: oxyCODONE/ACETAMINOPHEN 5 MG/325 MG TAB PO PRN ×3 (07:17→21:47)
[2018-04-01] MEDS: LISINOPRIL 20 MG TAB PO SCH (09:27)
[2018-04-01] MEDS: PANTOPRAZOLE SOD 20 MG DELAYED RELEASE TAB PO SCH ×2 (09:27→21:47)
[2018-04-01] MEDS: DILTIAZEM-CD 120 MG CAP ER PO SCH ×2 (09:27→21:46)
[2018-04-01] MEDS: POLYETHYLENE GLYCOL 17 GM PKG PO SCH (09:27)
[2018-04-01] MEDS: BUDESONIDE-FORMOTEROL 160/4.5 MCG INHALER INH SCH ×2 (09:27→21:46)
[2018-04-01] MEDS: ALVIMOPAN 12 MG CAPSULE - Post-op dosing PO SCH ×2 (09:27→21:46)
[2018-04-01] MEDS: DULoxetine HCl DR 30 MG CAP PO SCH (09:27)
--- NOTE | 2018-04-01 12:24 | HHI.PR ---
Subjective Subjective Notes no N/V, pain ok very SOB with excursion Objective Vitals/I&O Vital Signs Date Time Temp Pulse Resp B/P (MAP) Pulse Ox O2 Delivery O2 Flow Rate FiO2 04/01/18 09:31 Nasal Cannula 3.00 04/01/18 08:33 94 04/01/18 08:17 20 04/01/18 08:00 97.7 91 117/72 (87) Labs Laboratory Tests Test 03/31/18 12:47 04/01/18 05:36 Prothrombin Time 11.1 Prothromb Time International Ratio 1.1 White Blood Count 15.8 Red Blood Count 3.10 Hemoglobin 8.4 Hematocrit 26.1 Mean Corpuscular Volume 84.1 Mean Corpuscular Hemoglobin 27.0 Mean Corpuscular Hemoglobin Concent 32.1 Red Cell Distribution Width 17.8 Platelet Count 253 Mean Platelet Volume 8.7 Neutrophils (%) (Auto) 95.8 Lymphocytes (%) (Auto) 1.0 Monocytes (%) (Auto) 3.1 Eosinophils (%) (Auto) 0.0 Basophils (%) (Auto) 0.1 Neutrophils # (Auto) 15.1 Lymphocytes # (Auto) 0.2 Monocytes # (Auto) 0.5 Eosinophils # (Auto) 0.0 Basophils # (Auto) 0.0 CBC Comment DIFF FINAL Differential Comment Radiology Last Impressions Chest X-Ray 03/30/18 0000 Signed Impressions: Service Date/Time: March 14:54 - CONCLUSION: 1. Patchy left lower lobe airspace disease concerning for developing pneumonia in the appropriate clinical setting. Francis Mullen MD Last Impressions Chest X-Ray 03/29/18 0000 Signed Impressions: Service Date/Time: Thursday, March 29, 2018 14:07 - CONCLUSION: 1. Mild cardiomegaly and chronic appearing interstitial changes. No acute abnormality is identified. Mohan Zelaya MD Cardiovascular: Regular Lungs: Clear, Upper airway course sound Abdomen: Non-distended, Post-op tenderness Extremities: No edema, Perfused A/P Problem List: (1) Elevated white blood cell count ICD Codes: D72.829 - Elevated white blood cell count, unspecified Status: Acute (2) Mild shortness of breath ICD Codes: R06.02 - Shortness of breath Status: Acute (3) Postoperative pneumonia ICD Codes: J95.89 - Other postprocedural complications and disorders of respiratory system, not elsewhere classified; J18.9 - Pneumonia, unspecified organism Status: Acute (4) Status post exploratory laparotomy ICD Codes: Z98.890 - Other specified postprocedural states Status: Acute (5) COPD (chronic obstructive pulmonary disease) ICD Codes: J44.9 - COPD (chronic obstructive pulmonary disease) Status: Chronic (6) Pain ICD Codes: R52 - Pain Status: Acute (7) Anemia ICD Codes: D64.9 - Anemia, unspecified Status: Chronic (8) GERD (gastroesophageal reflux disease) ICD Codes: K21.9 - Gastro-esophageal reflux disease without esophagitis Status: Chronic Assessment and Plan 72 year old female POD4 dx converted to ex lap -Breathing stable -No mass seen intraoperatively -no appetite, no BM or gas, await bowel function -continue IV Levaquin for possible post op pneumonia -Dr. Posada following, appreciate help -due to inconsistant diet my need lovenox instead of coumadin Kayode Mahmood MD April 01, 2018 12:24
[2018-04-01] MEDS: WARFARIN SOD 2 MG TAB PO SCH (15:26)
[2018-04-01] MEDS: LEVOFLOXACIN 500 MG PREMIX INJ 100 ML IV SCH (15:27)
--- NOTE | 2018-04-01 18:59 | HHI.PR ---
Subjective Remarks ALERT NO DISTRESS Objective Vital Signs Date Time Temp Pulse Resp B/P (MAP) Pulse Ox O2 Delivery O2 Flow Rate FiO2 04/01/18 17:10 20 04/01/18 16:00 97.5 83 19 148/72 (97) 97 04/01/18 12:00 97.7 92 19 139/68 (91) 95 04/01/18 09:31 Nasal Cannula 3.00 04/01/18 08:33 94 Nasal Cannula 3.00 04/01/18 08:17 20 04/01/18 08:00 97.7 91 19 117/72 (87) 97 04/01/18 04:00 97 04/01/18 00:00 97.5 99 20 127/82 (97) 96 03/31/18 21:14 96 Nasal Cannula 3.00 03/31/18 20:14 Nasal Cannula 3.00 03/31/18 20:00 97.7 86 20 125/59 (81) 95 I/O 03/31/18 03/31/18 03/31/18 04/01/18 04/01/18 04/01/18 07:00 15:00 23:00 07:00 15:00 23:00 Intake Total 580 ml 100 ml 240 ml 2050 ml Balance 580 ml 100 ml 240 ml 2050 ml Intake Oral 580 ml 240 ml 1950 ml IV Total 100 ml 100 ml # Voids 3 4 3 7 # Bowel Movements 0 0 0 Result Diagram: 04/01/18 0536 03/28/18 0725 Objective Remarks GENERAL: SKIN: Warm and dry. HEAD: Atraumatic. Normocephalic. EYES: Pupils equal and round. No scleral icterus. No injection or drainage. ENT: No nasal bleeding or discharge. Mucous membranes pink and moist. NECK: Trachea midline. No JVD. CARDIOVASCULAR: Regular rate and rhythm. RESPIRATORY: No accessory muscle use. Clear to auscultation. Breath sounds equal bilaterally. GASTROINTESTINAL: Abdomen soft, non-tender, nondistended. Hepatic and splenic margins not palpable. MUSCULOSKELETAL: Extremities without clubbing, cyanosis, or edema. No obvious deformities. NEUROLOGICAL: Awake and alert. No obvious cranial nerve deficits. Motor grossly within normal limits. Five out of 5 muscle strength in the arms and legs. Normal speech. PSYCHIATRIC: Appropriate mood and affect; insight and judgment normal. Assessment and Plan Assessment and Plan ASS COPD S/P ABDOMINAL SURGERY PLAN O2 NEEDED BROBCHODILATOR THERAPY INCREASE ACTIVITY Alexandra Morris MD April 01, 2018 18:59
[2018-04-01] MEDS: GABAPENTIN 300 MG CAP PO SCH (21:46)
[2018-04-02] VITALS (8 sets, daily range): BP systolic 137–150; BP diastolic 59–79; PULSE 92–98; RESP 18–20; TEMP 97.3–98; O2SAT 94–98
[2018-04-02] MEDS: oxyCODONE/ACETAMINOPHEN 5 MG/325 MG TAB PO PRN ×5 (00:09→22:23)
[2018-04-02] MEDS: NYSTAT/DIPHENHY/LIDO MOUTHWASH (Adult) 120ML SWISH-SWAL SCH ×4 (02:00→20:00)
[2018-04-02] MEDS: RESP: ALBUTEROL 2.5 MG/3 ML NEB (SCH) NEB ×4 (05:08→20:36)
[2018-04-02] MEDS: DIAZEPAM 5 MG TAB PO PRN (05:34)
[2018-04-02] MEDS: methylPREDNISolone SOD SUCC 40 MG/1 ML VIAL IV PUSH SCH ×3 (05:35→22:24)
[2018-04-02] MEDS: LEVOTHYROXINE SODIUM 100 MCG TAB PO SCH (05:35)
--- NOTE | 2018-04-02 08:15 | HHI.PR ---
Subjective Subjective Notes no acute issues, +flatus no bm Objective Vitals/I&O Vital Signs Date Time Temp Pulse Resp B/P (MAP) Pulse Ox O2 Delivery O2 Flow Rate FiO2 04/02/18 05:10 94 Nasal Cannula 3.00 04/02/18 00:00 97.3 98 18 150/67 (94) Radiology Last Impressions Chest X-Ray 03/30/18 0000 Signed Impressions: Service Date/Time: March 14:54 - CONCLUSION: 1. Patchy left lower lobe airspace disease concerning for developing pneumonia in the appropriate clinical setting. Francis Mullen MD Last Impressions Chest X-Ray 03/29/18 0000 Signed Impressions: Service Date/Time: Thursday, March 29, 2018 14:07 - CONCLUSION: 1. Mild cardiomegaly and chronic appearing interstitial changes. No acute abnormality is identified. Mohan Zelaya MD Abdomen: Non-tender (donna in place good sxn, soft mild distension) A/P Problem List: (1) Elevated white blood cell count ICD Codes: D72.829 - Elevated white blood cell count, unspecified Status: Acute (2) Mild shortness of breath ICD Codes: R06.02 - Shortness of breath Status: Acute (3) Postoperative pneumonia ICD Codes: J95.89 - Other postprocedural complications and disorders of respiratory system, not elsewhere classified; J18.9 - Pneumonia, unspecified organism Status: Acute (4) Status post exploratory laparotomy ICD Codes: Z98.890 - Other specified postprocedural states Status: Acute (5) COPD (chronic obstructive pulmonary disease) ICD Codes: J44.9 - COPD (chronic obstructive pulmonary disease) Status: Chronic (6) Pain ICD Codes: R52 - Pain Status: Acute (7) Anemia ICD Codes: D64.9 - Anemia, unspecified Status: Chronic (8) GERD (gastroesophageal reflux disease) ICD Codes: K21.9 - Gastro-esophageal reflux disease without esophagitis Status: Chronic Assessment and Plan 72 year old female POD5 dx converted to ex lap -Breathing stable -No mass seen intraoperatively -bowel function +flatus add senna stool softeners -continue IV Levaquin for possible post op pneumonia -Dr. Posada following, appreciate recs -check INR tomorrow -reg diet Erich Garcia MD April 02, 2018 08:15
[2018-04-02] MEDS: LISINOPRIL 20 MG TAB PO SCH (09:29)
[2018-04-02] MEDS: DULoxetine HCl DR 30 MG CAP PO SCH (09:29)
[2018-04-02] MEDS: PANTOPRAZOLE SOD 20 MG DELAYED RELEASE TAB PO SCH ×2 (09:29→22:23)
[2018-04-02] MEDS: POLYETHYLENE GLYCOL 17 GM PKG PO SCH (09:29)
[2018-04-02] MEDS: ALVIMOPAN 12 MG CAPSULE - Post-op dosing PO SCH ×2 (09:30→22:22)
[2018-04-02] MEDS: BUDESONIDE-FORMOTEROL 160/4.5 MCG INHALER INH SCH ×2 (09:31→21:00)
[2018-04-02] MEDS: DOCUSATE SODIUM 50 MG/SENNA 8.6 MG TAB PO SCH (09:39)
[2018-04-02] MEDS: DILTIAZEM-CD 120 MG CAP ER PO SCH ×2 (09:39→22:23)
--- NOTE | 2018-04-02 14:10 | HHI.PR ---
Subjective Remarks alert, awake, no distress, denies shortness of breath Objective Vital Signs Date Time Temp Pulse Resp B/P (MAP) Pulse Ox O2 Delivery O2 Flow Rate FiO2 04/02/18 12:00 97.6 96 18 149/59 (89) 97 04/02/18 09:04 95 Nasal Cannula 3.00 04/02/18 08:00 97.4 93 18 145/73 (97) 97 04/02/18 05:10 94 Nasal Cannula 3.00 04/02/18 00:00 97.3 98 18 150/67 (94) 95 04/01/18 21:40 Nasal Cannula 3.00 04/01/18 20:00 97.7 83 20 149/70 (96) 96 04/01/18 17:10 20 04/01/18 16:00 97.5 83 19 148/72 (97) 97 I/O 04/01/18 04/01/18 04/01/18 04/02/18 04/02/18 04/02/18 07:00 15:00 23:00 07:00 15:00 23:00 Intake Total 240 ml 2050 ml Balance 240 ml 2050 ml Intake Oral 240 ml 1950 ml IV Total 100 ml # Voids 3 7 2 # Bowel Movements 0 0 Result Diagram: 04/01/18 0536 Objective Remarks GENERAL: awake, alert, no distress SKIN: Warm and dry. HEAD: Atraumatic. Normocephalic. NECK: Trachea midline. No JVD. CARDIOVASCULAR: Regular rate and rhythm. RESPIRATORY: No accessory muscle use. Clear to auscultation. Breath sounds equal bilaterally. GASTROINTESTINAL: bandage clean/dry/intact MUSCULOSKELETAL: Extremities without clubbing, cyanosis, or edema. No obvious deformities. NEUROLOGICAL: Awake and alert. Normal speech. PSYCHIATRIC: Appropriate mood and affect; insight and judgment normal. Assessment and Plan Assessment and Plan ASS COPD S/P ABDOMINAL SURGERY PLAN O2 NEEDED BRONCHODILATOR THERAPY INCREASE ACTIVITY as tolerated Alexandra Morris MD April 02, 2018 14:10
[2018-04-02] MEDS: WARFARIN SOD 2 MG TAB PO SCH (16:58)
[2018-04-02] MEDS: LEVOFLOXACIN 500 MG PREMIX INJ 100 ML IV SCH (16:58)
[2018-04-02] MEDS: GABAPENTIN 300 MG CAP PO SCH (22:22)
[2018-04-03] VITALS: BP 146/66; PULSE 105; RESP 20; TEMP 98; O2SAT 96
[2018-04-03] MEDS: DIAZEPAM 5 MG TAB PO PRN (01:16)
[2018-04-03] MEDS: NYSTAT/DIPHENHY/LIDO MOUTHWASH (Adult) 120ML SWISH-SWAL SCH ×3 (02:00→14:00)
[2018-04-03] MEDS: LEVOTHYROXINE SODIUM 100 MCG TAB PO SCH (05:01)
[2018-04-03] MEDS: methylPREDNISolone SOD SUCC 40 MG/1 ML VIAL IV PUSH SCH ×3 (05:01→14:37)
[2018-04-03] MEDS: RESP: ALBUTEROL 2.5 MG/3 ML NEB (SCH) NEB ×3 (05:42→15:34)
[2018-04-03 08:00] VITALS: BP 129/79; PULSE 102; RESP 19; TEMP 97.6; O2SAT 95
[2018-04-03 08:18] LABS: INTERNATIONAL NORMALIZED RATIO 1.4 RATIO; PROTHROMBIN TIME - PATIENT 13.9 SEC (9.8-11.6)
[2018-04-03] MEDS: DILTIAZEM-CD 120 MG CAP ER PO SCH (09:17)
[2018-04-03] MEDS: ALVIMOPAN 12 MG CAPSULE - Post-op dosing PO SCH (09:17)
[2018-04-03] MEDS: POLYETHYLENE GLYCOL 17 GM PKG PO SCH (09:17)
[2018-04-03] MEDS: DULoxetine HCl DR 30 MG CAP PO SCH (09:17)
[2018-04-03] MEDS: PANTOPRAZOLE SOD 20 MG DELAYED RELEASE TAB PO SCH (09:18)
[2018-04-03] MEDS: LISINOPRIL 20 MG TAB PO SCH (09:18)
[2018-04-03] MEDS: DOCUSATE SODIUM 50 MG/SENNA 8.6 MG TAB PO SCH (09:18)
[2018-04-03] MEDS: BUDESONIDE-FORMOTEROL 160/4.5 MCG INHALER INH SCH (09:20)
[2018-04-03 10:09] VITALS: O2SAT 96
[2018-04-03] MEDS ORDERED: OXYGENDME NAS.CANULA (11:39)
--- NOTE | 2018-04-03 11:40 | HHI.FF ---
Face to Face Verification Diagnosis: (1) Mild shortness of breath (2) Postoperative pneumonia (3) Status post exploratory laparotomy (4) COPD (chronic obstructive pulmonary disease) Home Health Nursing Order: Oxygen administration education Instructions: New oxygen; 3L NC continuous I have seen patient Anila García Allred on 04/03/18. My clinical findings support the need for the requested home health care services because: Limited ability to care for self High risk of falls I certify that my clinical findings support that this patient is homebound because: Post-op weakness NOTE FOR SURGICAL ATTENDING, DR. MICHAEL HURLEY I agree with above assessment and plan. The exam, history, and the medical decision-making described in the above note were completed with the assistance of the mid-level provider. I reviewed and agree with the findings presented. I attest that I had a [id number] encounter with the patient on the same day, and personally performed and documented my assessment and findings in the medical record. The following services were provided during this hospital visit: Chart data review, vital sign assessments/reviewing monitor data Review of consultations notes if present. Medication orders/review and/or management Ordering and/or reviewing lab tests Ordering and/or interpreting/reviewing x-rays and/or diagnostic studies Care of the patient and discussion of the patient with the care team Documentation time To help prompt me to consider important information that might be impacting today's encounter and assessment, Information from prior notes written by myself or my colleagues may have been "brought forward/copy and pasted" into today's note. cc: Michael Hurley MD Tianna Cabral/Salesperson Hosiery SPIRITUAL MINISTER April 03, 2018 11:40 Michael Hurley MD April 04, 2018 11:24
[2018-04-03 12:00] VITALS: BP 168/77; PULSE 99; RESP 18; TEMP 98.5; O2SAT 96
[2018-04-03] MEDS: WARFARIN SOD 2 MG TAB PO SCH (14:33)
[2018-04-03] MEDS: LEVOFLOXACIN 500 MG PREMIX INJ 100 ML IV SCH (14:37)
[2018-04-03] MEDS: oxyCODONE/ACETAMINOPHEN 5 MG/325 MG TAB PO PRN (14:41)
--- NOTE | 2018-04-03 14:42 | HHI.DS ---
Discharge Summary Admission Date March 28, 2018 at 06:18 Discharge Date: April 03, 2018 Admitting Diagnosis (1) Elevated white blood cell count ICD Codes: D72.829 - Elevated white blood cell count, unspecified Status: Acute (2) Mild shortness of breath ICD Codes: R06.02 - Shortness of breath Status: Acute (3) Postoperative pneumonia ICD Codes: J95.89 - Other postprocedural complications and disorders of respiratory system, not elsewhere classified; J18.9 - Pneumonia, unspecified organism Status: Acute (4) Status post exploratory laparotomy ICD Codes: Z98.890 - Other specified postprocedural states Status: Acute (5) COPD (chronic obstructive pulmonary disease) ICD Codes: J44.9 - COPD (chronic obstructive pulmonary disease) Status: Chronic (6) Pain ICD Codes: R52 - Pain Status: Acute (7) Anemia ICD Codes: D64.9 - Anemia, unspecified Status: Chronic (8) GERD (gastroesophageal reflux disease) ICD Codes: K21.9 - Gastro-esophageal reflux disease without esophagitis Status: Chronic Brief History 72 year old female s/p dx converted to ex lap CBC/BMP: 04/01/18 0536 Significant Findings Laboratory Tests Test 04/01/18 05:36 04/03/18 05:58 White Blood Count 15.8 TH/MM3 (4.0-11.0) Red Blood Count 3.10 MIL/MM3 (4.00-5.30) Hemoglobin 8.4 GM/DL (11.6-15.3) Hematocrit 26.1 % (35.0-46.0) Red Cell Distribution Width 17.8 % (11.6-17.2) Neutrophils (%) (Auto) 95.8 % (16.0-70.0) Lymphocytes (%) (Auto) 1.0 % (9.0-44.0) Neutrophils # (Auto) 15.1 TH/MM3 (1.8-7.7) Lymphocytes # (Auto) 0.2 TH/MM3 (1.0-4.8) Prothrombin Time 13.9 SEC (9.8-11.6) Imaging Last Impressions Chest X-Ray 03/30/18 0000 Signed Impressions: Service Date/Time: March 14:54 - CONCLUSION: 1. Patchy left lower lobe airspace disease concerning for developing pneumonia in the appropriate clinical setting. Francis Mullen MD PE at Discharge Alert and awake Cardio: RRR Resp; CTAB Abd; incision with NARCISO in place Hospital Course This is a 6 year old female s/p diagnostic laparotomy converted to an exploratory laparotomy for a concern for a small bowel mass. The patient's post operative course was complicated by post operative pneumonia complicated by COPD. She was started on antibiotics. Her B2B Sales Executive was consulted. She was unable to wean for the oxygen and arrangements were made to set up home oxygen. The NARCISO dressing was removed. She will follow up in the office. Pt Condition on Discharge: Good Discharge Disposition: Disch w/ Home Health Serv Discharge Instructions DIET: Follow Instructions for: As Tolerated, No Restrictions Activities you can perform: See Additionl Instruction Other Activity Instructions: Okay to shower Leave incision open to air; pat dry No bath tubs Follow up Referrals: Surgical - 04/04/18 with James Hurley MD Appt set for TuesdayApril 04 at 2 :10PM New Medications: Levofloxacin (Levaquin) 500 Mg Tablet 500 MG PO DAILY for Infection for 5 Days, #5 TAB 0 Refills Oxygen (O2) (Oxygen (O2)) Device LITER CLIFFORD.CANULA CONTINUOUS for Prevent Hypoxemia, #3 Oxygen Concentrator Portable Gaseous 2 L/min via Nasal Canula Continuous For 99 months Oxycodone HCl/Acetaminophen (Oxycodone-Acetaminophen 5-325) 5 Mg-325 Mg Tablet 1 TAB PO Q4H PRN for pain, #20 TAB Attending Statement NOTE FOR SURGICAL ATTENDING, DR. JAMES HURLEY I agree with above assessment and plan. The exam, history, and the medical decision-making described in the above note were completed with the assistance of the mid-level provider. I reviewed and agree with the findings presented. I attest that I had a [id number] encounter with the patient on the same day, and personally performed and documented my assessment and findings in the medical record. The following services were provided during this hospital visit: Chart data review, vital sign assessments/reviewing monitor data Review of consultations notes if present. Medication orders/review and/or management Ordering and/or reviewing lab tests Ordering and/or interpreting/reviewing x-rays and/or diagnostic studies Care of the patient and discussion of the patient with the care team Documentation time To help prompt me to consider important information that might be impacting today's encounter and assessment, Information from prior notes written by myself or my colleagues may have been "brought forward/copy and pasted" into today's note. cc: Brice Posada MD; James Hurley MD; Kvng Williamson MD Tianna CabralP/Tobacco Feeder Catcher VP BUSINESS DEVELOPMENT April 03, 2018 14:42 James Hurley MD April 04, 2018 11:29
[2018-04-04] MEDS ORDERED: OXYGENDME NAS.CANULA ×2 (08:31→11:30)
== END 2018-04-03 16:07 | disposition home health service (06) | DRG 335 ==
LOC: HSDI 06:18 → N07B 13:55
PROVIDERS: ADMIT Surgery; ATTEND Surgery
PROC: 0DNU0ZZ Release Omentum, Open Approach (ICD-10-PCS; principal; 2018-03-28 07:42)
DX: K66.0 Peritoneal adhesions (postprocedural) (postinfection) (principal); J18.9 Pneumonia, unspecified organism; J95.89 Other postprocedural complications and disorders of respiratory system, not elsewhere classified; J44.0 Chronic obstructive pulmonary disease with (acute) lower respiratory infection; J44.1 Chronic obstructive pulmonary disease with (acute) exacerbation; I48.91 Unspecified atrial fibrillation; D64.9 Anemia, unspecified; I12.9 Hypertensive chronic kidney disease with stage 1 through stage 4 chronic kidney disease, or unspecified chronic kidney disease; I25.10 Atherosclerotic heart disease of native coronary artery without angina pectoris; I51.7 Cardiomegaly; N18.9 Chronic kidney disease, unspecified; K21.9 Gastro-esophageal reflux disease without esophagitis; Z87.891 Personal history of nicotine dependence; Z85.3 Personal history of malignant neoplasm of breast; Z80.1 Family history of malignant neoplasm of trachea, bronchus and lung
CPT/HCPCS: 71045; 80048; 85025; 85610; 85730; 86850; 86900; 86901; 86902; 86920; 86922; 94150; 94618; 94640; 94664; C1765; J0690; J1100; J1170; J1956; J2250; J2270; J2370; J2405; J2710; J2920; J3010; J7030; J7120; J7611; J7613

== ENCOUNTER → 2018-04-11 | Outpatient (CLI) | payer MEDICARE ==
[~2018-04-11] MED LIST changes: +LEVA500T33 PO; +OXYC1TAB63 PO; +OXYGENDME NAS.CANULA
[2018-04-11 08:26] LABS: INTERNATIONAL NORMALIZED RATIO 2.2 RATIO; PROTHROMBIN TIME - PATIENT 22.1 SEC (9.8-11.6)
[2018-04-11 10:27] LABS: HEMATOCRIT 28.2 % (35.0-46.0); HEMOGLOBIN 9.1 GM/DL (11.6-15.3); MEAN CELL VOLUME 83.1 FL (80.0-100.0); MEAN CORPUSCULAR HEMOGLOBIN 26.9 PG (27.0-34.0); MEAN CORPUSCULAR HGB CONC 32.4 % (32.0-36.0); MEAN PLATELET VOLUME 8.2 FL (7.0-11.0); PLATELET COUNT 320 TH/MM3 (150-450); RED BLOOD COUNT 3.39 MIL/MM3 (4.00-5.30); WHITE BLOOD COUNT 10.1 TH/MM3 (4.0-11.0)
[2018-04-11 10:32] LABS: BICARBONATE 27.9 MEQ/L (21.0-32.0); CALCIUM 8.6 MG/DL (8.5-10.1); CREATININE 1.19 MG/DL (0.50-1.00)
== END ==
LOC: PLAB 07:13
PROVIDERS: ATTEND Internal Medicine Interventional Cardiology
DX: E87.6 Hypokalemia (principal); D64.9 Anemia, unspecified; Z79.01 Long term (current) use of anticoagulants
CPT/HCPCS: 36415; 80048; 85027; 85610

== ENCOUNTER → 2018-04-25 | Outpatient (CLI) | payer MEDICARE ==
[2018-04-25 08:41] LABS: INTERNATIONAL NORMALIZED RATIO 2.3 RATIO; PROTHROMBIN TIME - PATIENT 22.8 SEC (9.8-11.6)
[2018-04-25 10:22] LABS: CALCIUM 9.4 MG/DL (8.5-10.1); CREATININE 1.36 MG/DL (0.50-1.00)
== END ==
LOC: PLAB 07:11
PROVIDERS: ATTEND Internal Medicine Interventional Cardiology
DX: E87.6 Hypokalemia (principal); Z79.01 Long term (current) use of anticoagulants
CPT/HCPCS: 36415; 80048; 85610

== ENCOUNTER 2018-08-12 19:01 | Observation (INO) ==
[2018-08-12] MEDS ORDERED: HYDROmorphone PF Inj 4 MG/ML Ampul IM ONE (22:00)
--- NOTE | 2018-08-12 22:09 | ED ---
HPI General Chief complaint: Back Pain/Injury Stated complaint: Right Hip/buttock pain Time Seen by Provider: 08/12/18 21:52 History of Present Illness HPI narrative: 73-year-old female with history of A. cadence on Coumadin, breast cancer status post chemotherapy, currently in remission, chronic back pain, here for evaluation of right lower back pain. The pain started 2 days ago after lifting a heavy object. She felt a poping sensation in her low back at that time. She reports that the pain has been ongoing, worsening, severe, located in her right lower back and radiates down her posterior right buttock to about her knee. The pain is described as sharp/shooting, constant, made worse with movements, slightly improved with rest. She receives regular lower back injections by dip painter, and received injections yesterday , however this did not improve her pain. No urinary or bowel incontinence or retention. No fevers or chills. No dysuria or hematuria. No paresthesias or motor deficits. She had basic lab work performed yesterday by her oncologist Dr. Cason and this was reviewed by me with the patient. Related Data Home Medications Medication Instructions Recorded Confirmed albuterol sulfate 2 puff INHALATION Q4-6H PRN 08/12/18 08/12/18 budesonide-formoterol [Symbicort] 2 puff INHALATION BID 08/12/18 08/12/18 carisoprodol [Soma] 350 mg PO QID PRN 08/12/18 08/12/18 clorazepate dipotassium [Tranxene 3.75 mg PO BID PRN 08/12/18 08/12/18 T-Tab] gabapentin [Neurontin] 600 mg PO DAILY 08/12/18 08/12/18 hydrocodone-acetaminophen [Vicodin 1 tab PO Q6H PRN 08/12/18 08/12/18 ES] levothyroxine [Synthroid] 100 mcg PO DAILY 08/12/18 08/12/18 lisinopril 20 mg PO DAILY 08/12/18 08/12/18 omeprazole magnesium [Prilosec OTC] 20 mg PO DAILY 08/12/18 08/12/18 warfarin [Coumadin] 2 mg PO DAILY 08/12/18 08/12/18 Allergies Allergy/AdvReac Type Severity Reaction Status Date / Time diclofenac Allergy Severe Verified 03/27/18 12:34 etodolac Allergy Severe Verified 03/27/18 12:34 flurbiprofen Allergy Severe Verified 03/27/18 12:34 ibuprofen Allergy Severe Verified 03/27/18 12:34 indomethacin Allergy Severe Verified 03/27/18 12:34 ketoprofen Allergy Severe Verified 03/27/18 12:34 ketorolac Allergy Severe Verified 03/27/18 12:34 naproxen Allergy Severe Verified 03/27/18 12:34 oxaprozin Allergy Severe Verified 03/27/18 12:34 NSAIDS (Non-Steroidal Allergy Mild kidney Verified 03/28/18 07:14 Anti-Inflamma function problems Review of Systems ROS: all other systems reviewed are negative [facility] Medical History Medical History Afib (Acute) Breast cancer (Acute) COPD (chronic obstructive pulmonary disease) (Acute) HTN (hypertension) (Acute) History of hysterectomy (Acute) Hypothyroid (Acute) Surgical History Surgical History History of bladder surgery (Acute) History of cholecystectomy (Acute) History of lumpectomy (Acute) Social History Social History Substance History: No History of Abuse Second Hand Smoke Exposure: No Smoking Status: Never smoker How Often Do You Have a Drink Containing Alcohol: Never Recent Travel in [place] within the Last 8 Weeks: No Recent Out of Country Travel within the Last 8 Weeks: No Immunization History Tetanus Immunization: >5 Years Hx Influenza Vaccine This Season: Yes Exam Narrative Exam Narrative: GENERAL: Well-developed, well-nourished, moderate distress secondary to pain. SKIN: Focused skin assessment warm/dry. No rash. HEAD: Atraumatic. Normocephalic. EYES: Pupils equal and round. No scleral icterus. No injection or drainage. ENT: No nasal bleeding or discharge. Mucous membranes pink and moist. NECK: Trachea midline. No JVD. CARDIOVASCULAR: Regular rate and rhythm. No murmur appreciated. RESPIRATORY: No accessory muscle use. Clear to auscultation. Breath sounds equal bilaterally. GASTROINTESTINAL: Abdomen soft, non-tender, nondistended. Hepatic and splenic margins not palpable. MUSCULOSKELETAL: No midline vertebral step-off or tenderness. Moderate right SI joint tenderness which causes pain to radiate down her right posterior thigh. Normal range of motion in bilateral upper and lower extremities. NEUROLOGICAL: Awake and alert. No obvious cranial nerve deficits. Motor grossly within normal limits. Normal speech. Normal motor and sensory to bilateral lower extremities. Great toe extension present bilaterally. No saddle anesthesia. Normal strength in bilateral lower extremities in flexion and extension. Brisk patellar tendon reflexes bilaterally. PSYCHIATRIC: Appropriate mood and affect; insight and judgment normal. Course Initial Documented Vital Signs Temperature 97.5 F L 08/12/18 19:09 Pulse Rate 105 H 08/12/18 19:09 Respiratory Rate 18 08/12/18 19:09 Blood Pressure 142/69 H 08/12/18 19:09 Pulse Oximetry 100 08/12/18 19:09 Last Documented Vital Signs Temperature 97.5 F L 08/12/18 19:09 Pulse Rate 105 H 08/12/18 19:09 Respiratory Rate 18 08/12/18 23:00 Blood Pressure 142/69 H 08/12/18 19:09 Pulse Oximetry 100 08/12/18 19:09 Medical Decision Making MDM Narrative Medical decision making narrative: Vital signs reviewed. CT L-spine: CONCLUSION:1. Acute fracture of the anterior right endplate of L2 without loss of height.2. Small right parasagittal disc protrusion at L4-5 causing indentation on the thecal sac. Patient was provided 1 mg of IM Dilaudid and 10 mg of oral Flexeril. She was made aware of CT findings. On reassessment she states that her pain is only minimally improved after the Dilaudid and that she has severe intermittent spasms in her lower back. An IV will be placed and she will be given a dose of 1mg of IV Dilaudid and reassessed. After the second dose of 1mg if Dilaudid the patient reports that her pain is now 9/10 with occasional worsening spasms. Given ongoing pain with the acute L2 fx, she will be admitted to observation for further pain control. Her orthopedist is Dr Elian Rollins whom she sees for chronic back pain. Case discussed with hospitalist Dr Elizabeth who will admit the pateint to her service. Medical Screen Exam Complete: Yes Emergency Medical Condition: Yes Differential Diagnosis Differential Diagnosis: Sciatica, osteoarthritis, paraspinal hematoma, cord compression unlikely. Lab Data Result diagrams: 08/12/18 23:51 08/12/18 23:51 Lab Results 08/12/18 08/12/18 08/12/18 Range/Units 23:51 23:51 23:51 WBC 10.8 (4.0-11.0) th/mm3 RBC 4.53 (4.00-5.30) mil/mm3 Hgb 12.4 (11.6-15.3) gm/dL Hct 38.5 (35.0-46.0) % MCV 85.0 (80.0-100.0) fL MCH 27.4 (27.0-34.0) pg MCHC 32.3 (32.0-36.0) % RDW 28.1 H (11.6-17.2) % Plt Count 251 (150-450) th/mm3 MPV 8.0 (7.0-11.0) fL Prelim Diff (Auto) Slide review pending Neut % (Auto) 89.6 H (16.0-70.0) % Lymph % (Auto) 5.3 L (9.0-44.0) % [place] % (Auto) 4.7 (0.0-8.0) % Eos % (Auto) 0.1 (0.0-4.0) % Baso % (Auto) 0.3 (0.0-2.0) % Neut # (Auto) 9.7 H (1.8-7.7) th/mm3 Lymph # (Auto) 0.6 L (1.0-4.8) th/mm3 [place] # (Auto) 0.5 (0.0-0.9) th/mm3 Eos # (Auto) 0.0 (0.0-0.4) th/mm3 Baso # (Auto) 0.0 (0.0-0.2) th/mm3 Differential Comment . PT 20.1 H (9.8-11.6) sec INR 2.0 Ratio APTT 36.0 H (24.3-30.1) sec Sodium 142 (136-145) meq/L Potassium 4.1 (3.5-5.1) meq/L Chloride 112 H (98-107) meq/L Carbon Dioxide 21.7 (21.0-32.0) meq/L Anion Gap 8 (5-15) meq/L BUN 20 H (7-18) mg/dL Creatinine 1.18 H (0.50-1.00) mg/dL Estimated GFR 45 L (>89) mL/min Random Glucose 102 (74-106) mg/dL Calcium 9.0 (8.5-10.1) mg/dL Imaging Data Radiologist's impression: Lumbar Spine CT 08/12/18 22:00 CONCLUSION: 1. Acute fracture of the anterior right endplate of L2 without loss of height. 2. Small right parasagittal disc protrusion at L4-5 causing indentation on the thecal sac. Discharge Plan Physicians Team ED Provider: Ottoniel Celis Primary Care Provider: Bryce Conte Rxs /Orders / Referrals /Forms Prescriptions: No Action carisoprodol [Soma] 350 mg Tablet 350 mg PO QID PRN (Reason: Pain) RF: 0 gabapentin [Neurontin] 600 mg Tablet 600 mg PO DAILY RF: 0 lisinopril 20 mg Tablet 20 mg PO DAILY RF: 0 levothyroxine [Synthroid] 100 mcg Tablet 100 mcg PO DAILY RF: 0 warfarin [Coumadin] 2 mg Tablet 2 mg PO DAILY RF: 0 albuterol sulfate 90 mcg/actuation Hfa Aerosol Inhaler 2 puff INHALATION Q4-6H PRN (Reason: Shortness Of Breath Or Wheezing) RF: 0 clorazepate dipotassium [Tranxene T-Tab] 7.5 mg Tablet 3.75 mg PO BID PRN (Reason: Anxiety) RF: 0 omeprazole magnesium [Prilosec OTC] 20 mg Tablet,Delayed Release (Dr/Ec) 20 mg PO DAILY RF: 0 hydrocodone-acetaminophen [Vicodin ES] 7.5-300 mg Tablet 1 tab PO Q6H PRN (Reason: Pain) RF: 0 budesonide-formoterol [Symbicort] 80-4.5 mcg/actuation Hfa Aerosol Inhaler 2 puff INHALATION BID RF: 0 Discharge Interventions Interventions: Vital Signs Last Done: 08/12/18 21:49 Status ED Status: With Doctor
[2018-08-12] MEDS ORDERED: HYDROmorphone PF Inj 2 MG/ML Vial IM ONE (22:15)
--- NOTE | 2018-08-12 23:10 | CT ---
EXAM DATE: 08/12/2018 10:43 PM EDT AGE/SEX: 73 years / Female INDICATIONS: Right hip pain which patient states shoots down her leg. CLINICAL DATA: This is the patient's initial encounter. Patient reports that signs and symptoms have been present for 1 day and indicates a pain score of 7/10. MEDICAL/SURGICAL HISTORY: Carcinoma, breast. Chronic obstructive pulmonary disease. Hypertension. Atrial fibrillation Hysterectomy. Cholecystectomy. Lumpectomy, bladder surgery RADIATION DOSE: 39.32 CTDI (mGy) COMPARISON: No prior exams available for comparison. TECHNIQUE: Contiguous axial images were acquired with a multirow detector CT scanner without contras t. Multiplanar reconstructions in the sagittal and coronal plane were also performed. Using automate d exposure control and adjustment of the mA and/or kV according to patient size, radiation dose was k ept as low as reasonably achievable to obtain optimal diagnostic quality images. DICOM format image data is available electronically for review and comparison. FINDINGS: There is normal alignment of the vertebral bodies of the lumbar spine and preservation of vertebral body height. There is cortical discontinuity of the superior and anterior endplate of L2 on the right side suggesting acute nondisplaced fracture. The posterior cortex of the lumbar vertebral bodies rem ains in normal alignment. There is advanced narrowing of the L5-S1 interspace with endplate sclerosis and posterior osteophytes. Small bone island is present in the anterior right L3 vertebral body. T12-L1: The thecal sac has a normal diameter. No evidence of disc bulge or protrusion. The neural foramina are patent bilaterally. L1-L2: Broad-based bulging of the disc with maintenance of convex ventral margin of thecal sac. Mild extension into the neural foramen on the left side. L2-L3: Posterior disc/osteophyte complex causes minimal flattening the ventral margin of the thecal sac. No extension into the neural foramen. L3-L4: Minimal bulging of the disc without flattening of the ventral margin of thecal sac. L4-L5: Small right parasagittal disc protrusion causes indentation on the right ventral thecal sac a nd measures 4 mm in AP dimension. No lateral extension. L5-S1: Broad-based disc osteophyte complex flattens the ventral margin of the thecal sac and extends into the neural foramen bilaterally. There is also moderate severity bilateral lateral recess stenos is due to facet joint hypertrophy. CONCLUSION: 1. Acute fracture of the anterior right endplate of L2 without loss of height. 2. Small right parasagittal disc protrusion at L4-5 causing indentation on the thecal sac. Electronically signed by: Cuong Weaver MD 08/12/2018 11:08 PM EDT
[2018-08-12] MEDS ORDERED: HYDROmorphone PF Inj 2 MG/ML Vial IV.PUSH ONE (23:25)
[2018-08-13 00:03] LABS: Baso % (Auto) 0.3 % (0.0-2.0); Eos % (Auto) 0.1 % (0.0-4.0); Hematocrit 38.5 % (35.0-46.0); Hemoglobin 12.4 gm/dL (11.6-15.3); Lymph # (Auto) 0.6 th/mm3 (1.0-4.8); Lymph % (Auto) 5.3 % (9.0-44.0); Mean Corpuscular HGB Conc 32.3 % (32.0-36.0); Mean Corpuscular Hemoglobin 27.4 pg (27.0-34.0); Mono # (Auto) 0.5 th/mm3 (0.0-0.9); Mono % (Auto) 4.7 % (0.0-8.0); Neut # (Auto) 9.7 th/mm3 (1.8-7.7); Neut % (Auto) 89.6 % (16.0-70.0); Platelet Count 251 th/mm3 (150-450); Red Blood Count 4.53 mil/mm3 (4.00-5.30); Red Cell Distribution Width 28.1 % (11.6-17.2); White Blood Count 10.8 th/mm3 (4.0-11.0)
[2018-08-13 00:14] LABS: Prothrombin Time 20.1 sec (9.8-11.6)
[2018-08-13 00:16] LABS: Carbon Dioxide 21.7 meq/L (21.0-32.0); Potassium 4.1 meq/L (3.5-5.1)
[2018-08-13] MEDS ORDERED: Carisoprodol 350 MG Tablet PO PRN (00:40)
[2018-08-13] MEDS ORDERED: Acetaminophen 325 MG Tablet PO PRN (00:41)
[2018-08-13] MEDS ORDERED: Bisacodyl 10 MG Supp RECTAL PRN (00:41)
[2018-08-13 00:54] LABS: Ovalocytes 1+; Platelet Estimate Normal (Normal); Platelet Morphology Normal (Normal)
--- NOTE | 2018-08-13 02:38 | P.HPIM ---
History of Present Illness Primary Care Physician: Bryce Conte MD History of Present Illness: This is a 73-year-old female with a PMH of Breast CA, HTN, COPD, A. fib on Coumadin, and Chronic Back Pain who presented to the ER w/ c/o severe back pain. States she lifted a heavy basket approx 2-3 days ago and has had severe back pain since then. Pain is constant, severe, 10/10, non-radiating, worse w/ movement. Follows w/ Dr. Royal as outpatient in addition to Pain Management , had spinal injection yesterday w/ no improvement. On arrival, BP 142/69, HR 105, O2 sat 100% on RA, Afebrile. CBC unremarkable. INR 2.0. Chemistry essentially unremarkable except for creatinine 1.18. CT L-spine acute fracture of anterior right endplate of L2 without loss of height, small right parasagittal disc protrusion L4-L5 causing indentation of thecal sac. S/p Morphine/Dilaudid in ER w/ minimal improvement, significant difficulty w/ ambulation due to pain. - Diagnosis (1) Closed L2 vertebral fracture (2) Intractable back pain (3) Afib Review of Systems PAST FAMILY HISTORY: Reviewed. No h/o DM or CAD All other systems reviewed negative except as stated in HPI PMFSH - History History Provided By: Patient - Medical History Medical History: Medical History (Last Updated 08/12/18 @ 19:13 by Claire Guadarrama) Afib Breast cancer COPD (chronic obstructive pulmonary disease) HTN (hypertension) History of hysterectomy Hypothyroid - Surgical History Surgical History: Surgical History (Last Updated 08/12/18 @ 19:13 by Claire Guadarrama) History of bladder surgery History of cholecystectomy History of lumpectomy - Tobacco History Second Hand Smoke Exposure: No Smoking Status: Never smoker - Alcohol History How Often Do You Have a Drink Containing Alcohol: Never - Substance Use History Substance History: No History of Abuse - Travel History Recent Travel in the [place] Within the Last 8 Weeks: No Recent Travel Out of the Country Within the Last 8 Weeks: No - Immunization History Tetanus Immunization: >5 Years Hx Influenza Vaccine This Season: Yes Medications and Allergies Active Medications: Active Medications Acetaminophen (Tylenol) 650 mg PO Q4H PRN PRN Reason: Temp > 100.4 Al Hydroxide/Mg Hydroxide (Milk Of Magnesia Liq) 30 ml PO Q12H PRN PRN Reason: Mild Constipation Bisacodyl (Dulcolax Supp) 10 mg RECTAL DAILY PRN PRN Reason: SEVERE CONSITIPATION Budesonide/Formoterol Fumarate (Symbicort 80/4.5 Mcg Inh) 2 puff INH BID REHAN Carisoprodol (Soma) 350 mg PO QID PRN PRN Reason: MUSCLE SPASM Hydromorphone HCl (Dilaudid Pf Inj) 0.5 mg IV.PUSH Q4H PRN PRN Reason: PAIN 6-10 Lactulose (Lactulose Liq) 30 ml PO DAILY PRN PRN Reason: SEVERE CONSITIPATION Ondansetron HCl (Zofran Inj) 4 mg IV.PUSH Q6H PRN PRN Reason: NAUSEA OR VOMITING Senna/Docusate Sodium (Maria Del Carmen-Colace) 1 tab PO BID REHAN Sennosides (Senokot) 17.2 mg PO Q12H PRN PRN Reason: Moderate Constipation Sodium Chloride (Ns Flush) 2 ml IV.FLUSH PRN PRN PRN Reason: FLUSH AFTER USING IV ACCESS Last Admin: 08/13/18 00:03 Dose: 2 ml Allergies Allergy/AdvReac Type Severity Reaction Status Date / Time diclofenac Allergy Severe Verified 03/27/18 12:34 etodolac Allergy Severe Verified 03/27/18 12:34 flurbiprofen Allergy Severe Verified 03/27/18 12:34 ibuprofen Allergy Severe Verified 03/27/18 12:34 indomethacin Allergy Severe Verified 03/27/18 12:34 ketoprofen Allergy Severe Verified 03/27/18 12:34 ketorolac Allergy Severe Verified 03/27/18 12:34 naproxen Allergy Severe Verified 03/27/18 12:34 oxaprozin Allergy Severe Verified 03/27/18 12:34 NSAIDS (Non-Steroidal Allergy Mild kidney Verified 03/28/18 07:14 Anti-Inflamma function problems Home Medications Medication Instructions Recorded Confirmed Type albuterol sulfate 2 puff INHALATION Q4-6H PRN 08/12/18 08/12/18 History budesonide-formoterol [Symbicort] 2 puff INHALATION BID 08/12/18 08/12/18 History carisoprodol [Soma] 350 mg PO QID PRN 08/12/18 08/12/18 History clorazepate dipotassium [Tranxene 3.75 mg PO BID PRN 08/12/18 08/12/18 History T-Tab] gabapentin [Neurontin] 600 mg PO DAILY 08/12/18 08/12/18 History hydrocodone-acetaminophen [Vicodin 1 tab PO Q6H PRN 08/12/18 08/12/18 History ES] levothyroxine [Synthroid] 100 mcg PO DAILY 08/12/18 08/12/18 History lisinopril 20 mg PO DAILY 08/12/18 08/12/18 History omeprazole magnesium [Prilosec OTC] 20 mg PO DAILY 08/12/18 08/12/18 History warfarin [Coumadin] 2 mg PO DAILY 08/12/18 08/12/18 History Exam Vital signs: Vital Signs 08/12/18 19:09 08/12/18 21:49 08/12/18 23:00 Temperature 97.5 F L Pulse Rate 105 H Respiratory Rate 18 20 18 Blood Pressure 142/69 H Pulse Oximetry 100 Intake & Output 08/12/18 08/12/18 08/13/18 06:59 18:59 06:59 Weight 87.09 kg Narrative: PE: GENERAL: Very pleasant elderly white female in no acute distress. at bedside. SKIN: Focused skin assessment warm and dry. HEENT: PERRLA, EOMI. No scleral icterus or conjunctival pallor. No lid lag or facial droop. CARDIOVASCULAR: Regular rate and rhythm. No obvious murmurs to auscultation. No chest tenderness to palpation. RESPIRATORY: No obvious rhonchi or wheezing. Clear to auscultation. Breath sounds equal bilaterally. GASTROINTESTINAL: Abdomen soft, non-tender, nondistended. BS normal. MUSCULOSKELETAL: Extremities without clubbing, cyanosis, or edema. No obvious deformities. Decreased ROM of LE due to back pain. NEUROLOGICAL: Awake, alert and oriented x4. No focal neurologic deficits. Moving both upper and lower extremities spontaneously. PSYCHIATRIC: Appropriate mood and affect. Insight and judgment normal. Results - Labs CBC & Chem 7: 08/12/18 23:51 08/12/18 23:51 Labs: Short CBC 08/12/18 Range/Units 23:51 WBC 10.8 (4.0-11.0) th/mm3 Hgb 12.4 (11.6-15.3) gm/dL Hct 38.5 (35.0-46.0) % Plt Count 251 (150-450) th/mm3 BMP 08/12/18 23:51 Sodium 142 Potassium 4.1 Chloride 112 H Carbon Dioxide 21.7 BUN 20 H Creatinine 1.18 H Calcium 9.0 - Imaging Impressions Lumbar Spine CT 08/12/18 22:00 CONCLUSION: 1. Acute fracture of the anterior right endplate of L2 without loss of height. 2. Small right parasagittal disc protrusion at L4-5 causing indentation on the thecal sac. Caprini VTE Risk Assessment Caprini VTE Risk Assessment: Moderate/High Risk (score >= 2) Caprini Risk Assessment Model: Point Value = 1 Point Value = 2 Point Value = 3 Point Value = 5 Age 41-60 Minor surgery BMI > 25 kg/m2 Swollen legs Varicose veins or History of unexplained or recurrent spontaneous Oral contraceptives or hormone replacement Sepsis (< 1 month) Serious lung disease, including pneumonia (< 1 month) Abnormal pulmonary function Acute myocardial infarction Congestive heart failure (< 1 month) History of inflammatory bowel disease Medical patient at bed rest Age 61-74 Arthroscopic surgery Major open surgery (> 45 min) Laparoscopic surgery (> 45 min) Malignancy Confined to bed (> 72 hours) Immobilizing plaster cast Central venous access Age >= 75 History of VTE Family history of VTE Factor V Leiden Prothrombin [id number] Lupus anticoagulant Anticardiolipin antibodies Elevated serum homocysteine Heparin-induced thrombocytopenia Other congenital or acquired thrombophilia Stroke (< 1 month) Elective arthroplasty Hip, pelvis, or leg fracture Acute spinal cord injury (< 1 month) Prophylaxis Regimen: Total Risk Factor Score Risk Level Prophylaxis Regimen 0-1 Low Early ambulation 2 Moderate Order ONE of the following: *Sequential Compression Device (SCD) *Heparin 5000 units SQ BID 3-4 Higher Order ONE of the following medications: *Heparin 5000 units SQ TID *Enoxaparin/Lovenox 40 mg SQ daily (WT < 150 kg, CrCl > 30 mL/min) *Enoxaparin/Lovenox 30 mg SQ daily (WT < 150 kg, CrCl > 10-29 mL/min) *Enoxaparin/Lovenox 30 mg SQ BID (WT < 150 kg, CrCl > 30 mL/min) AND/OR *Sequential Compression Device (SCD) 5 or more Highest Order ONE of the following medications: *Heparin 5000 units SQ TID (Preferred with Epidurals) *Enoxaparin/Lovenox 40 mg SQ daily (WT < 150 kg, CrCl > 30 mL/min) *Enoxaparin/Lovenox 30 mg SQ daily (WT < 150 kg, CrCl > 10-29 mL/min) *Enoxaparin/Lovenox 30 mg SQ BID (WT < 150 kg, CrCl > 30 mL/min) AND *Sequential Compression Device (SCD) Assessment and Plan - Assessment (1) Closed L2 vertebral fracture Code(s): S32.029A - Unspecified fracture of second lumbar vertebra, initial encounter for closed fracture Status: Acute (2) Intractable back pain Code(s): M54.9 - Dorsalgia, unspecified Status: Acute (3) Afib Code(s): I48.91 - Unspecified atrial fibrillation Status: Acute - Plan A/P: 1. L2 Vertebral Fx: CT L-Spine w/ acute fracture of anterior right endplate L2 , images reviewed. Follows w/ Dr. Royal as outpatient, will consult for further eval/recommendation regarding possible intervention. TLSO. PT for eval /tx. 2. Intractable Pain: secondary to above, continue w/ analgesics/antiemetics and antispasmodics as needed. 3. A-fib: Chronic, on Coumadin w/ therapeutic INR, will hold Coumadin until further eval for possible surgical intervention. 4. DVT Prophylaxis: Hold Coumadin as above 5. Social work for d/c planning as needed. 6. Case discussed w/ ER physician at length, labs/records/imaging reviewed by me.
[2018-08-13] MEDS: HYDROmorphone PF Inj 2 MG/ML Vial IV.PUSH PRN ×2 (03:10→06:53)
[2018-08-13 04:24] VITALS: RESP 16
[2018-08-13 05:28] LABS: Baso % (Auto) 0.2 % (0.0-2.0); Eos % (Auto) 0.2 % (0.0-4.0); Hematocrit 35.4 % (35.0-46.0); Hemoglobin 11.5 gm/dL (11.6-15.3); Lymph # (Auto) 0.5 th/mm3 (1.0-4.8); Lymph % (Auto) 5.2 % (9.0-44.0); Mean Corpuscular HGB Conc 32.5 % (32.0-36.0); Mean Corpuscular Hemoglobin 27.6 pg (27.0-34.0); Mean Platelet Volume 8.2 fL (7.0-11.0); Mono # (Auto) 0.7 th/mm3 (0.0-0.9); Mono % (Auto) 6.7 % (0.0-8.0); Neut # (Auto) 9.3 th/mm3 (1.8-7.7); Neut % (Auto) 87.7 % (16.0-70.0); Platelet Count 215 th/mm3 (150-450); Red Blood Count 4.17 mil/mm3 (4.00-5.30); Red Cell Distribution Width 28.5 % (11.6-17.2); White Blood Count 10.6 th/mm3 (4.0-11.0)
[2018-08-13 05:38] LABS: INR 1.9 Ratio; Prothrombin Time 19.6 sec (9.8-11.6)
[2018-08-13 05:48] LABS: Albumin 3.5 g/dL (3.4-5.0); Anion Gap 9 meq/L (5-15); Aspartate Aminotransferase 80 U/L (15-37); Blood Urea Nitrogen 20 mg/dL (7-18); Carbon Dioxide 21.7 meq/L (21.0-32.0); Chloride 112 meq/L (98-107); Glomerular Filtration Rate 52 mL/min (>89); Glucose,Random 98 mg/dL (74-106); Potassium 4.4 meq/L (3.5-5.1); Sodium 143 meq/L (136-145)
[2018-08-13 05:51] LABS: Alanine Aminotransferase 99 U/L (10-53); Alkaline Phosphatase 199 U/L (45-117); Total Protein 7.4 g/dL (6.4-8.2)
[2018-08-13 07:20] LABS: Lymphocytes 8 % (9-44); Monocytes 7 % (0-8); Myelocytes 1 % (0-0); Ovalocytes 1+
[2018-08-13 07:21] LABS: Platelet Estimate Normal (Normal); Platelet Morphology Normal (Normal)
[2018-08-13 08:28] VITALS: BP 158/76; PULSE 99; TEMP 98; O2SAT 95
--- NOTE | 2018-08-13 08:35 | P.CONOP ---
[facility] Orthopedics Consult Note - [facility] Consult date: 08/13/18 Chief complaint: L2 fracture, intractable back pain Narrative: Anila is a 73-year-old female who presents to the ER with severe right sided low back pain. She has a long history of low back pain. She has seen Dr. Elian Royal multiple times and is also been seen by pain management. She states that she was lifting some boxes approximately 3 days ago. She has severe back pain at that time. She states that this feels different than her sciatica. She had lumbar nerve root injections yesterday which did not give her any relief of her pain. Pain is worse with movement. Pain is improved with rest. She is not able to take anti-inflammatories because she is on Coumadin. She denies numbness or tingling of her lower extremities. Review of Systems Patient denies fevers, chills, weight loss, headache, visual changes, hearing loss, chest pain, palpitations, shortness of breath, nausea, vomiting, no urinary changes, diarrhea, bowel changes, neck pain, back pain, skin rashes, weakness of extremities, easy bleeding, enlarged lymph nodes, numbness of extremities, anxiety, or depression. Patient's social history, past medical history, and family history were reviewed on chart and with patient. [facility] - History History Provided By: Patient - Medical History Medical History: Medical History (Last Reviewed 08/13/18 @ 08:32 by Tong Walsh MD) Afib Breast cancer COPD (chronic obstructive pulmonary disease) HTN (hypertension) History of hysterectomy Hypothyroid - Surgical History Surgical History: Surgical History (Last Reviewed 08/13/18 @ 08:32 by Tong Walsh MD) History of bladder surgery History of cholecystectomy History of lumpectomy - Family History Family History: Family History (Last Updated 08/13/18 @ 08:32 by Tong Walsh MD) Other Family history non-contributory - Social History I have reviewed the patient's Social History: Yes - Tobacco History Second Hand Smoke Exposure: No Smoking Status: Never smoker - Alcohol History How Often Do You Have a Drink Containing Alcohol: Never - Substance Use History Substance History: No History of Abuse - Travel History Recent Travel in the [place] Within the Last 8 Weeks: No Recent Travel Out of the Country Within the Last 8 Weeks: No - Immunization History Tetanus Immunization: >5 Years Hx Influenza Vaccine This Season: Yes Medications and Allergies Active Medications: Active Medications Acetaminophen (Tylenol) 650 mg PO Q4H PRN PRN Reason: Temp > 100.4 Al Hydroxide/Mg Hydroxide (Milk Of Magnesia Liq) 30 ml PO Q12H PRN PRN Reason: Mild Constipation Bisacodyl (Dulcolax Supp) 10 mg RECTAL DAILY PRN PRN Reason: SEVERE CONSITIPATION Budesonide/Formoterol Fumarate (Symbicort 80/4.5 Mcg Inh) 2 puff INH BID REHAN Carisoprodol (Soma) 350 mg PO QID PRN PRN Reason: MUSCLE SPASM Diphenhydramine HCl (Benadryl) 25 mg PO Q6H PRN PRN Reason: ITCHING Hydromorphone HCl (Dilaudid Pf Inj) 0.5 mg IV.PUSH Q4H PRN PRN Reason: PAIN 6-10 Last Admin: 08/13/18 06:53 Dose: 0.5 mg Lactulose (Lactulose Liq) 30 ml PO DAILY PRN PRN Reason: SEVERE CONSITIPATION Ondansetron HCl (Zofran Inj) 4 mg IV.PUSH Q6H PRN PRN Reason: NAUSEA OR VOMITING Senna/Docusate Sodium (Maria Del Carmen-Colace) 1 tab PO BID [facility] Sennosides (Senokot) 17.2 mg PO Q12H PRN PRN Reason: Moderate Constipation Sodium Chloride (Ns Flush) 2 ml IV.FLUSH PRN PRN PRN Reason: FLUSH AFTER USING IV ACCESS Last Admin: 08/13/18 00:03 Dose: 2 ml Allergies Allergy/AdvReac Type Severity Reaction Status Date / Time diclofenac Allergy Severe Verified 03/27/18 12:34 etodolac Allergy Severe Verified 03/27/18 12:34 flurbiprofen Allergy Severe Verified 03/27/18 12:34 ibuprofen Allergy Severe Verified 03/27/18 12:34 indomethacin Allergy Severe Verified 03/27/18 12:34 ketoprofen Allergy Severe Verified 03/27/18 12:34 ketorolac Allergy Severe Verified 03/27/18 12:34 naproxen Allergy Severe Verified 03/27/18 12:34 oxaprozin Allergy Severe Verified 03/27/18 12:34 NSAIDS (Non-Steroidal Allergy Mild kidney Verified 03/28/18 07:14 Anti-Inflamma function problems Home Medications Medication Instructions Recorded Confirmed Type albuterol sulfate 2 puff INHALATION Q4-6H PRN 08/12/18 08/12/18 History budesonide-formoterol [Symbicort] 2 puff INHALATION BID 08/12/18 08/12/18 History carisoprodol [Soma] 350 mg PO QID PRN 08/12/18 08/12/18 History clorazepate dipotassium [Tranxene 3.75 mg PO BID PRN 08/12/18 08/12/18 History T-Tab] gabapentin [Neurontin] 600 mg PO DAILY 08/12/18 08/12/18 History hydrocodone-acetaminophen [Vicodin 1 tab PO Q6H PRN 08/12/18 08/12/18 History ES] levothyroxine [Synthroid] 100 mcg PO DAILY 08/12/18 08/12/18 History lisinopril 20 mg PO DAILY 08/12/18 08/12/18 History omeprazole magnesium [Prilosec OTC] 20 mg PO DAILY 08/12/18 08/12/18 History warfarin [Coumadin] 2 mg PO DAILY 08/12/18 08/12/18 History Exam Vital signs: Vital Signs 08/12/18 19:09 08/12/18 21:49 08/12/18 23:00 Temperature 97.5 F L Pulse Rate 105 H Respiratory Rate 18 20 18 Blood Pressure 142/69 H Pulse Oximetry 100 08/13/18 04:00 08/13/18 08:00 Temperature 98.8 F 98.0 F Pulse Rate 98 H 99 H Respiratory Rate 16 16 Blood Pressure 168/71 H 158/76 H Pulse Oximetry 97 95 Intake & Output 08/12/18 08/13/18 08/13/18 18:59 06:59 18:59 Weight 87.09 kg Narrative: Michelle is a pleasant 73-year-old female. General: Awake and alert. No acute distress. Appears well-developed well- nourished Head: Normocephalic, atraumatic pupils are equal Neck: Soft, nontender, trachea midline Abdomen: Soft, nondistended Examination of right arm reveals no pain or deformity with shoulder, elbow, or wrist motion. Skin is intact. Radial pulse is palpable. Normal capillary refill in fingers. Sensation is intact in radial, ulnar, and median nerve distributions. 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 No lymphadenopathy noted. Examination of left arm reveals no pain or deformity with shoulder, elbow, or wrist motion. Skin is intact. Radial pulse is palpable. Normal capillary refill in fingers. Sensation is intact in radial, ulnar, and median nerve distributions. 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 No lymphadenopathy noted. Examination of left lower extremity reveals no pain or deformity with hip, knee , or ankle motion. Skin is intact. Sensation is intact in left foot. Dorsalis pedis pulse is palpable. Normal capillary refill and feet. Thigh and calf compartments are soft. No lymphadenopathy noted. +5 strength of ankle dorsiflexion and plantarflexion. Examination of right lower extremity reveals no pain or deformity with hip, knee , or ankle motion. Skin is intact. Sensation is intact in right foot. Dorsalis pedis pulse is palpable. Normal capillary refill and feet. Thigh and calf compartments are soft. No lymphadenopathy noted. +5 strength of ankle dorsiflexion and plantarflexion. Examination of her spine reveals minimal tenderness along the spinous processes of her cervical, thoracic, or lumbar spine. She is tender to palpation over the lower lumbar paraspinal muscles on the right side. She also has some pain along the gluteus muscles of her right hip. Straight leg raise test is negative bilaterally. Results - Labs Result Diagrams: 08/13/18 04:00 08/13/18 04:00 Labs: Laboratory Results - last 24 hr 08/12/18 08/12/18 08/12/18 23:51 23:51 23:51 WBC 10.8 RBC 4.53 Hgb 12.4 Hct 38.5 MCV 85.0 MCH 27.4 MCHC 32.3 RDW 28.1 H Plt Count 251 MPV 8.0 Prelim Diff (Auto) Slide review pending Neut % (Auto) 89.6 H Lymph % (Auto) 5.3 L Cass % (Auto) 4.7 Eos % (Auto) 0.1 Baso % (Auto) 0.3 Neut # (Auto) 9.7 H Lymph # (Auto) 0.6 L Cass # (Auto) 0.5 Eos # (Auto) 0.0 Baso # (Auto) 0.0 WBC Differential . Diff Scan Auto diff confirmed Seg Neuts % (Manual) Band Neuts % (Manual) Lymphocytes % (Manual) Monocytes % (Manual) Myelocytes % (Man) Abs Neuts (Manual) Differential Comment . Platelet Estimate Normal Platelet Morphology Normal Ovalocytes 1+ H PT 20.1 H INR 2.0 APTT 36.0 H Sodium 142 Potassium 4.1 Chloride 112 H Carbon Dioxide 21.7 Anion Gap 8 BUN 20 H Creatinine 1.18 H Estimated GFR 45 L Random Glucose 102 Calcium 9.0 Total Bilirubin AST ALT Alkaline Phosphatase Total Protein Albumin 08/13/18 08/13/18 08/13/18 04:00 04:00 04:00 WBC 10.6 RBC 4.17 Hgb 11.5 L Hct 35.4 MCV 85.0 MCH 27.6 MCHC 32.5 RDW 28.5 H Plt Count 215 MPV 8.2 Prelim Diff (Auto) Slide review pending Neut % (Auto) 87.7 H Lymph % (Auto) 5.2 L Cass % (Auto) 6.7 Eos % (Auto) 0.2 Baso % (Auto) 0.2 Neut # (Auto) 9.3 H Lymph # (Auto) 0.5 L Cass # (Auto) 0.7 Eos # (Auto) 0.0 Baso # (Auto) 0.0 WBC Differential Manual diff final Diff Scan Seg Neuts % (Manual) 82 H Band Neuts % (Manual) 2 Lymphocytes % (Manual) 8 L Monocytes % (Manual) 7 Myelocytes % (Man) 1 H Abs Neuts (Manual) 9.0 H Differential Comment . Platelet Estimate Normal Platelet Morphology Normal Ovalocytes 1+ H PT 19.6 H INR 1.9 APTT Sodium 143 Potassium 4.4 Chloride 112 H Carbon Dioxide 21.7 Anion Gap 9 BUN 20 H Creatinine 1.03 H Estimated GFR 52 L Random Glucose 98 Calcium 9.0 Total Bilirubin 0.3 AST 80 H ALT 99 H Alkaline Phosphatase 199 H Total Protein 7.4 Albumin 3.5 - Diagnostic results Imaging: Impressions Lumbar Spine CT 08/12/18 22:00 CONCLUSION: 1. Acute fracture of the anterior right endplate of L2 without loss of height. 2. Small right parasagittal disc protrusion at L4-5 causing indentation on the thecal sac. Lumbar AP/lateral x-ray: report reviewed, image reviewed Assessment and Plan - Assessment and Plan Michelle has a 3-4day history of severe right-sided low back pain. Clinically her pain appears to be coming from the muscles. The pain does not appear to be lumbar radiculopathy. She has no numbness or pain in her legs. She is very tender to palpation over the lumbar muscles and right hip gluteus muscles. X- rays are suspicious for L2 compression fracture. This may not be an acute fracture given her pain. At this point I would recommend continued conservative treatment. She is unable to take anti-inflammatories. She will follow-up with pain management as necessary. If she has continued pain she will follow-up with Dr. Elian Royal has seen her multiple times for low back pain. All questions were answered. A mid-level provider in my office (nurse practitioner or physician office clerk assistant) may see this patient on follow-up visits and continue to implement the objectives of this plan including: Starting or adjusting medications, injections , cast application, orthotics, brace application, physical therapy, radiological studies (including x-ray, MRI, CT, ultrasound, bone scan), vascular studies, neurologic studies, specialist consultation, and proceeding with surgical management, as appropriate.
[2018-08-13] MEDS ORDERED: Senna/Docusate Sodium 8.6/50 MG Tablet PO SCH (09:00)
[2018-08-13] MEDS ORDERED: Budesonide-Formoterol 80/4.5 MCG 6.9 GM Inhaler INH SCH (09:00)
== END 2018-08-13 10:03 | disposition home or self-care (01) ==
LOC: NEPD 19:01 → NEDA 19:01 → NEPFCDU 08-13 02:20
PROVIDERS: ADMIT Hospitalist; ATTEND Hospitalist